=== PATIENT | female | born 1945 | race Caucasian/White ===

== ENCOUNTER 2016-11-08 00:16 | Observation (INO) | payer MEDICARE, BC ==
[2016-11-08] MEDS ORDERED: NS 0.9% 1000 ML* 1,000 ML IV ONE ×3 (00:32→03:33)
--- NOTE | 2016-11-08 00:54 | ED ---
HPI Cardiac - HPI Summary HPI Summary: The patient is a 71 year old female brought in by EMS with reported fever and elevated glucose. Patient admits to cough. Denies known fever, diaphoresis, sore throat, chest pain, shortness of breath, abdominal pain, vomiting, dysuria , change in voiding, arthralgia, myalgia, rash. History of DM on insulin, HTN, HLP, CHF, kidney disease. SH: Lives with independently at home. - History of Current Complaint Stated Complaint: FEVER//AMS Time Seen by Provider: 11/08/16 00:23 - Additional Pertinent History Primary Care Physician: [id number] - Allergy/Home Medications Allergies/Adverse Reactions: Allergies Allergy/AdvReac Type Severity Reaction Status Date / Time Rosiglitazone [From Avandia] Allergy Unknown Verified 10/09/16 14:28 Reaction Details CI Pigment Blue 63 AdvReac Hallucinati Verified 10/09/16 14:28 [From Cymbalta] ons Duloxetine [From Cymbalta] AdvReac Hallucinati Verified 10/09/16 14:28 ons PMH/Surg Hx/FS Hx/Imm Hx Endocrine/Hematology History: Reports: Hx Diabetes, Hx Thyroid Disease Denies: Hx Systemic Lupus Erythematosus Cardiovascular History: Reports: Hx Congestive Heart Failure, Hx Hypercholesterolemia, Hx Hypertension, Other Cardiovascular Problems/Disorders Respiratory History: Reports: Other Respiratory Problems/Disorders - CHF 03/08/15 GI History: Reports: Hx Diverticulosis History: Reports: Other Problems/Disorders - "impaired kidneys" Denies: Hx Renal Disease Musculoskeletal History: Reports: Hx Fibromyalgia, Hx Orthopedic Injury - neck injury, Hx Scoliosis, Other Musculoskeletal History - upper body pain Denies: Hx Rheumatoid Arthritis Sensory History: Reports: Hx Contacts or Glasses Opthamlomology History: Reports: Hx Contacts or Glasses Psychiatric History: Reports: Hx Depression - Cancer History Hx Chemotherapy: No - Surgical History Surgery Procedure, Year, and Place: neck diskectomy with fusion 1997 and 2006, CHOLECYSTECTOMY - Social History Alcohol Use: None Substance Use Type: Reports: None Substance Use Comment - Amount & Last Used: nucynta Smoking Status (MU): Current Every Day Smoker Type: Cigarettes Amount Used/How Often: 6-7 cigarettes/day Have You Smoked in the Last Year: Yes Review of Systems Positive: Chills, Fatigue. Negative: Fever ENT: Negative Negative: Sore Throat, Nasal Discharge Cardiovascular: Negative Negative: Chest Pain Positive: Cough. Negative: Shortness Of Breath Gastrointestinal: Negative Negative: Abdominal Pain, Vomiting, Diarrhea Genitourinary: Negative Negative: dysuria, hematuria Musculoskeletal: Negative Negative: Arthralgia, Myalgia Skin: Negative Negative: Rash Positive: Weakness - generalized weakness All Other Systems Reviewed And Are Negative: Yes Physical Exam Triage Information Reviewed: Yes Vital Signs Reviewed: Yes Appearance: Positive: No Pain Distress, Well-Nourished, Ill-Appearing - mildly ill-appearing Skin: Positive: Warm - increased warmth, Skin Color Reflects Adequate Perfusion , Dry Head/Face: Positive: Normal Head/Face Inspection Eyes: Positive: Normal, EOMI, BOGDAN, Conjunctiva Clear ENT: Positive: Normal ENT inspection, Hearing grossly normal, Pharynx normal, TMs normal. Negative: Nasal congestion, Nasal drainage Neck: Positive: Supple, Nontender, No Lymphadenopathy Respiratory/Lung Sounds: Positive: Breath Sounds Present, Rhonchi - bilaterally. Negative: Decreased Breath Sounds, Wheezes Cardiovascular: Positive: Normal, RRR, Pulses are Symmetrical in both Upper and Lower Extremities, Murmur - grade II systolic, S1, S2. Negative: Rub Abdomen Description: Positive: No Organomegaly, Soft, Other: - mild tenderness RUQ. Negative: CVA Tenderness (R), CVA Tenderness (L), Distended, Guarding, McBurney's Point Tenderness, Peritoneal Signs Bowel Sounds: Positive: Present Musculoskeletal: Positive: Other - generalized weakness without unilateral abnormality Neurological: Positive: Normal - awake, alert, following commands, Facial Symmetry, Speech Normal Psychiatric: Positive: Normal AVPU Assessment: Alert Diagnostics - Laboratory Result Diagrams: 11/08/16 01:25 11/08/16 01:25 Lab Statement: Any lab studies that have been ordered have been reviewed, and results considered in the medical decision making process. Disposition - Course Assessment/Plan: Patient presents with fever and cough. Labs demonstrate elevated WBC and elevated lactic acid. Clinical impression of community acquired PNA. Covered with Rocephin, Zithromax, IVF. Initiated KCL IV x3 runs. Patient to be admitted to hospital for further management. - Diagnoses Provider Diagnoses: Community acquired bacterial pneumonia, Sepsis, Hypokalemia - Physician Notifications Discussed Care Of Patient With: Dr. Johnson accepted admission 0325. Instructed by Provider To: Admit As Inpatient Discharge - Discharge Plan Condition: Stable Disposition: ADMITTED TO [facility]
[2016-11-08] MEDS ORDERED: Acetaminophen TAB* 325 MG PO ONE (01:19)
[2016-11-08 01:46] LABS: Hematocrit 40 % (35-47); Hemoglobin 13.5 g/dl (12.0-16.0); Mean Corpuscular HGB Conc 34 g/dl (31-36); Mean Corpuscular Hemoglobin 29 pg (27-31); Mean Corpuscular Volume 85 fL (80-97); Mean Platelet Volume 8 um3 (7.4-10.4); Red Blood Count 4.71 10^6/ul (4.0-5.4); Red Cell Distribution Width 15 % (10.5-15); White Blood Count 14.3 10^3/ul (3.5-10.8)
[2016-11-08 01:56] LABS: BUN/Creatinine Ratio 8.5 (8-20); Calcium 10.2 mg/dL (8.6-10.3); EGFR African American 66.1 (>60); EGFR Non-African American 51.4 (>60); Globulin 4.4 g/dL (2-4); Potassium 2.9 mmol/L (3.5-5.0); Total Bilirubin 0.6 mg/dL (0.2-1.0); Total Protein 8.4 g/dL (6.4-8.9)
[2016-11-08] MEDS ORDERED: cefTRIAXone(*) 1 GM in NS 0.9% 50 ML* 50 ML IVPB ONE (02:52)
[2016-11-08] MEDS ORDERED: Azithromycin IV(*) 500 MG in NS 0.9% 250 ML* 250 ML IVPB ONE (02:52)
[2016-11-08] MEDS ORDERED: KCL 10 MEQ/50 ML ONE (02:59)
[2016-11-08] MEDS ORDERED: IVPREMIX ONE (02:59)
[2016-11-08] MEDS: KCL 10 MEQ/50 ML IVPREMIX* 10 MEQ/50 ML BAG IV SCH ×3 (03:12→05:22)
[2016-11-08] MEDS ORDERED: Acetaminophen TAB* 325 MG PO PRN (05:14)
[2016-11-08] MEDS ORDERED: Ondansetron INJ* 2 MG/ML VIAL IV PRN (05:14)
[2016-11-08] MEDS ORDERED: Dextrose 50% Syringe 50 ML* 25 GM/50 ML SYRINGE IV PUSH PRN (05:15)
[2016-11-08 06:52] LABS: Urine Bacteria Absent (Absent); Urine Bilirubin Negative (Negative); Urine Glucose 3+(>=500 mg/dL) (Negative); Urine Nitrite Negative (Negative)
[2016-11-08] MEDS: Heparin VIAL(*) 5000 UNITS/ML VIAL (FIVE THOUSAND) SUBCUT SCH ×3 (07:22→22:05)
[2016-11-08] MEDS: Insulin LISPRO* 1 UNITS UNIT SUBCUT SCH ×4 (07:32→22:05)
--- NOTE | 2016-11-08 07:50 | RAD ---
HISTORY: Cough, fever COMPARISONS: None VIEWS: 2: Frontal dual-energy and lateral views of the chest. FINDINGS: CARDIOMEDIASTINAL SILHOUETTE: The cardiomediastinal silhouette is normal. ARTHUR: The arthur are normal. PLEURA: The costophrenic angles are sharp. No pleural abnormalities are noted. LUNG PARENCHYMA: The lungs are clear. ABDOMEN: The upper abdomen is clear. There is no subphrenic gas. BONES AND SOFT TISSUES: The patient is status post anterior cervical fusion OTHER: None. IMPRESSION: NO ACTIVE CARDIOPULMONARY DISEASE.
[2016-11-08] MEDS: NS 0.9% 1000 ML* 1,000 ML IV SCH ×2 (10:54→19:59)
[2016-11-08] MEDS ORDERED: Pregabalin CAP(*) 100 MG ONE (22:48)
[2016-11-09] MEDS ORDERED: amLODIPine TAB* 5 MG PO ONE (03:15)
[2016-11-09] MEDS ORDERED: amLODIPine TAB* 5 MG ONE (03:17)
[2016-11-09] MEDS: Heparin VIAL(*) 5000 UNITS/ML VIAL (FIVE THOUSAND) SUBCUT SCH ×2 (06:13→14:01)
[2016-11-09 08:17] LABS: Hematocrit 40 % (35-47); Hemoglobin 13.4 g/dl (12.0-16.0); Mean Corpuscular HGB Conc 34 g/dl (31-36); Mean Corpuscular Hemoglobin 29 pg (27-31); Mean Corpuscular Volume 86 fL (80-97); Mean Platelet Volume 8 um3 (7.4-10.4); Red Blood Count 4.64 10^6/ul (4.0-5.4); Red Cell Distribution Width 14 % (10.5-15); White Blood Count 9.9 10^3/ul (3.5-10.8)
[2016-11-09 08:18] LABS: BUN/Creatinine Ratio 12.8 (8-20); Calcium 10.3 mg/dL (8.6-10.3); EGFR African American 75.9 (>60); Potassium 3.5 mmol/L (3.5-5.0)
[2016-11-09] MEDS: Insulin LISPRO* 1 UNITS UNIT SUBCUT SCH ×2 (08:37→12:13)
[2016-11-09] MEDS ORDERED: Pregabalin CAP(*) 50 MG PO SCH (09:00)
--- NOTE | 2016-11-09 11:42 | PN ---
Subjective Date of Service: 11/09/16 Interval History: Pt is feeling well. She feels better. No pain. No SOB. Objective Active Medications: Acetaminophen (Tylenol Tab*) 650 mg PO Q4H PRN PRN Reason: FEVER/PAIN Dextrose (D50w Syringe 50 Ml*) 12.5 gm IV PUSH .FOR FS < 60 - SS PRN PRN Reason: FS < 60 Heparin Sodium (Porcine) (Heparin Vial(*)) 5,000 units SUBCUT Q8HR [facility] Last Admin: 11/09/16 06:13 Dose: Not Given Insulin Human Lispro (Humalog*) 0 units SUBCUT ACHS [facility] PRN Reason: Protocol Last Admin: 11/09/16 08:37 Dose: 4 units Ondansetron HCl (Zofran Inj*) 4 mg IV Q4H PRN PRN Reason: NAUSEA Pregabalin (Lyrica Cap(*)) 150 mg PO QAM [facility] Last Admin: 11/09/16 08:31 Dose: 150 mg Pregabalin (Lyrica Cap(*)) 300 mg PO QPM [facility] Vital Signs 11/08/16 11/08/16 11/08/16 12:07 19:49 20:00 Temperature 97.8 F Pulse Rate 78 Respiratory 16 18 16 Rate Blood Pressure 177/78 (mmHg) O2 Sat by Pulse 94 94 Oximetry 11/08/16 11/08/16 11/09/16 22:50 23:36 00:50 Temperature 98.4 F Pulse Rate 75 Respiratory 16 16 16 Rate Blood Pressure 171/72 (mmHg) O2 Sat by Pulse 94 Oximetry 11/09/16 11/09/16 11/09/16 03:13 06:02 07:26 Temperature 98.2 F 97.7 F Pulse Rate 73 68 70 Respiratory 16 14 Rate Blood Pressure 184/75 176/64 159/67 (mmHg) O2 Sat by Pulse 94 94 95 Oximetry 11/09/16 11/09/16 07:28 08:31 Temperature Pulse Rate Respiratory 18 18 Rate Blood Pressure (mmHg) O2 Sat by Pulse 95 Oximetry Oxygen Devices in Use Now: None Appearance: Middle aged female sitting up in bed, NAD Eyes: No Scleral Icterus Ears/Nose/Mouth/Throat: Mucous Membranes Moist Respiratory: Symmetrical Chest Expansion and Respiratory Effort, Clear to Auscultation Cardiovascular: NL Sounds; No Murmurs; No JVD, RRR, No Edema Abdominal: NL Sounds; No Tenderness; No Distention Extremities: No Clubbing, Cyanosis Skin: No Rash or Ulcers, No Nodules or Sclerosis Neurological: Alert and Oriented x 3 Result Diagrams: 11/09/16 07:59 11/09/16 07:59 Assess/Plan/Problems-Billing Ms Zavala is a 71 yo F who has a 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 - Patient Problems (1) Fever Current Visit: Yes Status: Acute Code(s): R50.9 - FEVER, UNSPECIFIED SNOMED Code(s): 967538312 Comment: Likely secondary to viral process. No further fevers. She is feeling much better. She is ready for d/c home today. (2) Weakness Current Visit: Yes Status: Acute Code(s): R53.1 - WEAKNESS SNOMED Code(s) : 66344356 Comment: I suspect secondary to viral illness. Now improved. (3) Diabetes Current Visit: Yes Status: Acute Code(s): E11.9 - TYPE 2 DIABETES MELLITUS WITHOUT COMPLICATIONS SNOMED Code(s): 56798331 Comment: Sugars have been uncontrolled however she has been off her usual DM regimen. Resume lantus and monitor sugars. (4) Hypothyroidism Current Visit: Yes Status: Acute Code(s): E03.9 - HYPOTHYROIDISM, UNSPECIFIED SNOMED Code(s): 64504438 Comment: Continue current dose of synthroid. (5) Cirrhosis Current Visit: Yes Status: Acute Comment: Stable-she has been contacted by Dr. Izquierdo's office for follow up appt. She has mild thrombocytopenia that is likely secondary to her cirrhosis. Her cirrhosis is secondary to HOLMAN. (6) DVT prophylaxis Current Visit: Yes Status: Acute Code(s): UWO1184 - SNOMED Code(s): 850236019 Comment: SQ heparin (7) Full code status Current Visit: Yes Status: Acute Code(s): Z78.9 - OTHER SPECIFIED HEALTH STATUS SNOMED Code(s): 630535335
[2016-11-09] MEDS ORDERED: Baclofen TAB* 10 MG PO PRN (11:45)
--- NOTE | 2016-11-09 11:59 | HP ---
HISTORY AND PHYSICAL: DATE OF ADMISSION: 11/08/16 CHIEF COMPLAINT: "I passed out." HISTORY OF PRESENT ILLNESS: The patient is a 71-year-old woman who presented to [facility] with a chief complaint of fever at home and elevated glucose. The patient has been feeling weak and confused. She did not feel like she had a fever. Apparently, this all started yesterday. She had no nausea, vomiting. She has had no problems with her bowel movements. She has had no problems urinating. She has no abdominal pain. In the ED, the patient was found to have a slightly elevated white blood cell count. She did have a low- grade fever of 100 degrees. PAST MEDICAL HISTORY: She has a past medical history significant for diabetes mellitus, hypothyroidism, hypertension, depression, osteoporosis, hyperlipidemia , tobacco abuse, obesity, congestive heart failure, and chronic pain. PAST SURGICAL HISTORY: Significant for cholecystectomy. HOME MEDICATIONS: Include: 1. Effexor XR 37.5 mg daily. 2. Synthroid 100 mcg daily. 3. Imdur 30 mg daily. 4. Lantus insulin 45 units subcu b.i.d. 5. Aspart insulin 100 units subcu t.i.d. 6. Ferrous sulfate 325 mg every other day. 7. Nucynta 50 mg every 6 hours. 8. Furosemide 10 mg daily. 9. Amlodipine 2.5 mg daily. 10. Metolazone 2.5 mg daily. 11. Lyrica 300 mg in the evening. 12. Metformin 1000 mg at bedtime. 13. Lyrica 150 mg in the morning. 14. Baclofen 50 mg two times a day as needed. ALLERGIES: She has an allergy/adverse reaction to ROSIGLITAZONE, C1 BIG PIGMENT BLUE 63, and DULOXETINE. SOCIAL HISTORY: She has been smoking about 1 -2 packs for the last 50 years. No alcohol or recreational drug use. She is a retired . She is . She has 3 children. Her , Matthew Zavala is her healthcare proxy. REVIEW OF SYSTEMS: A 14-point review of systems is completed with the patient. All pertinent positives and negatives are in the history of present illness, otherwise it is negative. PHYSICAL EXAMINATION GENERAL: A pleasant woman sitting up in bed, in no acute distress. VITAL SIGNS: T-max 100 degrees, heart rate 85 beats per minute, respiratory rate 20 breaths per minute, pulse ox 94%, blood pressure 160/64. HEENT: Normocephalic and atraumatic. Pupils are equal, round and reactive to light. Moist mucous membranes. NECK: Supple. No JVD, bruits, palpable thyroid or lymphadenopathy. CHEST: Clear to auscultation and percussion bilaterally. CARDIOVASCULAR: S1, S2 appreciated. ABDOMEN: Positive bowel sounds in all 4 quadrants. Soft, nontender, and nondistended. EXTREMITIES: No cyanosis, clubbing, or edema. +2 peripheral pulses bilaterally. NEUROLOGIC: Alert and oriented x3. Moves all extremities. SKIN: No rashes or abnormalities. LABORATORY DATA: White count 14.3, hemoglobin 13.5, hematocrit 40, platelets 150. Her sodium is 135, potassium 2.9, chloride 98, CO2 26, BUN 9, creat 1.06, glucose 359. Urinalysis +3 glucose. Influenza is negative. Chest x-ray is negative. ASSESSMENT AND PLAN: 1. Altered mental status. Likely secondary to viral syndrome. She has a fever and elevated white count. I think we will just hydrate the patient and monitor. I expect her to turn around fairly quickly and feel much improved. We will also see if anything else that clears itself, but I do not think she has pneumonia or UTI at this time. 2. Diabetes mellitus. Continue Lantus, fingersticks, sliding scale insulin. 3. Hypertension. Blood pressure was somewhat high. Continue current regimen and adjust medications accordingly. 4. FEN. Consistent carb diet. 5. DVT prophylaxis. Heparin subcu. 6. The patient is a full code. TIME SPENT: Over 75 minutes were spent on this H and P; more than 40 minutes of which is spent direct [id number] contact with the patient in evaluation, physical exam, counseling, and coordination of care. CC: Dr. Jenn Tan * [id number]/CPS #: [id number] MTDStan
[2016-11-09] MEDS ORDERED: Insulin GLARGINE(*) 1 UNITS UNIT SUBCUT SCH (12:00)
[2016-11-09] MEDS ORDERED: Furosemide TAB* 20 MG PO SCH (12:00)
[2016-11-09] MEDS ORDERED: Levothyroxine TAB* 100 MCG TAB PO SCH (12:00)
[2016-11-09] MEDS ORDERED: Isosorbide Mononitrate ER TAB* 30 MG PO SCH (12:00)
[2016-11-09] MEDS ORDERED: Venlafaxine EXT RELEASE CAP* 37.5 MG PO SCH (12:00)
[2016-11-09 14:21] VITALS: BP 154/64
[2016-11-09] MEDS ORDERED: Pregabalin CAP(*) 300 MG PO SCH (18:00)
[2016-11-09] MEDS ORDERED: metFORMIN* 1,000 MG TAB PO SCH (21:00)
--- NOTE | 2016-11-10 01:11 | DS ---
DISCHARGE SUMMARY: DATE OF ADMISSION: 11/08/16 DATE OF DISCHARGE: 11/09/16 PRIMARY CARE PROVIDER: Dr. Jenn Tan. PRINCIPAL DIAGNOSIS: Viral illness. SECONDARY DIAGNOSES: 1. Type 2 diabetes. 2. Hypothyroidism. 3. Depression. 4. 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 5. Diabetic neuropathy. DISCHARGE MEDICATIONS: 1. Venlafaxine XR 37.5 mg p.o. daily. 2. Synthroid 100 mcg p.o. daily. 3. Imdur 30 mg p.o. daily. 4. Lantus 45 units subcutaneous b.i.d. 5. NovoLog 100 units subcutaneous t.i.d. with meals. 6. Ferrous sulfate 325 mg p.o. every other day. 7. Nucynta 15 mg p.o. q.6 hours p.r.n. pain. 8. Lasix 20 mg p.o. daily. 9. Amlodipine 2.5 mg p.o. daily. 10. Metolazone 2.5 mg p.o. daily p.r.n. fluid retention. 11. Lyrica 300 mg p.o. q.h.s. 12. Metformin 1000 mg p.o. q.h.s. 13. Lyrica 150 mg p.o. q.a.m. 14. Baclofen 10 mg p.o. t.i.d. p.r.n. spasm. HOSPITAL COURSE: Ms. Zavala is a 71-year-old female who presented to the emergency room on 11/08/16 with complaints of weakness and found to be febrile. The patient was admitted for evaluation of her fever. Of note, this was a low -grade fever of 100. The patient was felt to have likely a viral illness that led to her weakness. The patient was admitted and placed on IV fluids. With the administration of IV fluids, the patient relatively rapidly improved. Her family does note that she had been very slow to respond to questions previously and seemed very weak and she is much better today. The patient agrees feeling much better. At this point, her family is; however, concerned that her decline was over the last several months. They describe a weakness. 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 At this point, it is felt that the patient is stable for discharge home. FOLLOWUP CONCERNS: The patient is being discharged home today, 11/09/16. The patient is to follow up with Dr. Jenn Tan in the next 4 to 7 days. ACTIVITY: As tolerated. DIET: Diabetic, low fat. CONDITION ON DISCHARGE: Stable. TIME SPENT: Thirty five minutes were spent discharging this patient. CC: Dr. Jenn Tan* [id number]/CPS #: [id number] MTDD
[2016-11-10] MEDS ORDERED: amLODIPine TAB* 5 MG PO SCH (09:00)
== END 2016-11-09 14:45 | disposition home or self-care (01) ==
LOC: ED 00:16 → INTOOBSV 05:15 → MED 05:15
PROVIDERS: ADMIT Internal Medicine; ATTEND Hospitalist
DX: B34.9 Viral infection, unspecified (principal); R41.82 Altered mental status, unspecified; R53.1 Weakness; E11.40 Type 2 diabetes mellitus with diabetic neuropathy, unspecified; Z79.4 Long term (current) use of insulin; Z79.84 Long term (current) use of oral hypoglycemic drugs; D72.829 Elevated white blood cell count, unspecified; E03.9 Hypothyroidism, unspecified; F32.9 Major depressive disorder, single episode, unspecified; K74.69 Other cirrhosis of liver; K76.0 Fatty (change of) liver, not elsewhere classified; Z79.899 Other long term (current) drug therapy; Z88.8 Allergy status to other drugs, medicaments and biological substances; F17.210 Nicotine dependence, cigarettes, uncomplicated
CPT/HCPCS: 36415; 71020; 80048; 80053; 81003; 81015; 82140; 83605; 83880; 85025; 87040; 87502; 96361; 96365; 96366; 96367; 96372; 99285; 99406; A9270-GY; G0378; J0456; J0696; J1644; J3480

== ENCOUNTER 2017-02-03 16:08 | Observation (INO) | payer MEDICARE, BC ==
--- NOTE | 2017-02-03 20:07 | RAD ---
INDICATION: Right ankle injury. TECHNIQUE: 3 views of the right ankle were obtained. FINDINGS: The bones appear osteopenic and in normal alignment. There is mild diffuse soft tissue swelling present. No fracture is seen. IMPRESSION: SOFT TISSUE SWELLING, NO FRACTURE IS SEEN.
--- NOTE | 2017-02-03 20:08 | RAD ---
INDICATION: Right foot injury. TECHNIQUE: 3 views of the right foot were obtained. FINDINGS: Soft tissue swelling is noted over the dorsal aspect of the midfoot. The bones are osteopenic and in normal alignment. No fracture is seen. Joint spaces appear maintained. IMPRESSION: NO EVIDENCE FOR FRACTURE, IF THE PATIENT'S SYMPTOMS PERSIST, RECOMMEND FOLLOW-UP IMAGING.
--- NOTE | 2017-02-03 20:50 | RAD ---
INDICATION: Altered mental status. COMPARISON: Comparison is made with a prior CT of the brain from April 18, 2014. TECHNIQUE: Contiguous axial sections of the brain were obtained from the skull base to the vertex without contrast. FINDINGS: The ventricles, cisterns and sulci are enlarged consistent with age-related atrophy. There are small areas of decreased density in the subcortical and periventricular white matter suggestive of mild chronic small vessel ischemic changes. There is no evidence for hemorrhage. No significant focal osseous abnormality is seen. The visualized portion of the paranasal sinuses and mastoid air cells appear clear. IMPRESSION: NO EVIDENCE FOR ACUTE INTRACRANIAL ABNORMALITY.
[2017-02-03 21:16] LABS: Hematocrit 33 % (35-47); Hemoglobin 11.2 g/dl (12.0-16.0); Mean Corpuscular HGB Conc 34 g/dl (31-36); Mean Corpuscular Hemoglobin 29 pg (27-31); Mean Corpuscular Volume 87 fL (80-97); Mean Platelet Volume 8 um3 (7.4-10.4); Red Cell Distribution Width 15 % (10.5-15); White Blood Count 7.7 10^3/ul (3.5-10.8)
[2017-02-03 21:43] LABS: Albumin 3.6 g/dL (3.2-5.2); BUN/Creatinine Ratio 16.5 (8-20); Calcium 9.7 mg/dL (8.6-10.3); EGFR African American 68.3 (>60); EGFR Non-African American 53.1 (>60); Total Bilirubin 0.6 mg/dL (0.2-1.0); Total Protein 7.6 g/dL (6.4-8.9)
[2017-02-03 21:45] LABS: Potassium 2.3 mmol/L (3.5-5.0)
[2017-02-03 22:06] LABS: Magnesium 1.7 mg/dL (1.9-2.7)
[2017-02-03] MEDS: KCL 20 MEQ/100 ML IVPREMIX* 20 MEQ/100 ML BAG IV SCH (22:07)
[2017-02-03] MEDS ORDERED: Magnesium Sulfate 2 GM IV* 2 GM/50 ML BAG IVPB ONE (22:37)
--- NOTE | 2017-02-03 23:04 | ED ---
I, Oh,Jeanine, scribed for Delfina Stauffer MD on 02/03/17 at 2013 . Lower Extremity - HPI Summary HPI Summary: Somewhat limited HPI due to pt being poor historian. This 71 y/o female presents to ED after a fall this afternoon. Pt is not sure "what made me fall". She fell on her knees, but did not hit her head or had syncope. decided to bring pt in today when he became concerned about RLE ankle and knee pain. Pt herself is vague about her chief complaint at time of initial evaluation. Positive chronic tremor. PMHx includes DM, HTN, HLD, cirrhosis, and fibromyalgia. Primary care involves Dr. Tan. Pt is chronic smoker. - History of Current Complaint Chief Complaint: EDExtremityLower Stated Complaint: FALL/RT FOOT INJURY Time Seen by Provider: 02/03/17 19:34 Hx Obtained From: Patient, Medical Records Mechanism Of Injury: Fall From A Standing Position Pain Intensity: 8 Pain Scale Used: 0-10 Numeric Location: Is Discrete @ - RLE knee and ankle Character Of Pain: Dull Associated Signs And Symptoms: Positive: Knee Pain - right, Other - right ankle pain Aggravating Factor(s): Standing, Ambulation Alleviating Factor(s): Rest - Allergies/Home Medications Allergies/Adverse Reactions: Allergies Allergy/AdvReac Type Severity Reaction Status Date / Time Rosiglitazone [From Avandia] Allergy Unknown Verified 10/09/16 14:28 Reaction Details CI Pigment Blue 63 AdvReac Hallucinati Verified 10/09/16 14:28 [From Cymbalta] ons Duloxetine [From Cymbalta] AdvReac Hallucinati Verified 10/09/16 14:28 ons PMH/Surg Hx/FS Hx/Imm Hx Endocrine/Hematology History: Reports: Hx Diabetes, Hx Thyroid Disease - hypothyroid Denies: Hx Systemic Lupus Erythematosus Cardiovascular History: Reports: Hx Congestive Heart Failure, Hx Hypercholesterolemia, Hx Hypertension, Other Cardiovascular Problems/Disorders Respiratory History: Reports: Other Respiratory Problems/Disorders - CHF 03/08/15 GI History: Reports: Hx Diverticulosis, Other GI Disorders History: Reports: Other Problems/Disorders - "impaired kidneys" Denies: Hx Renal Disease Musculoskeletal History: Reports: Hx Fibromyalgia, Hx Orthopedic Injury - neck injury, Hx Scoliosis, Other Musculoskeletal History - upper body pain Denies: Hx Rheumatoid Arthritis Sensory History: Reports: Hx Contacts or Glasses Opthamlomology History: Reports: Hx Contacts or Glasses Psychiatric History: Reports: Hx Depression - Cancer History Hx Chemotherapy: No - Surgical History Surgery Procedure, Year, and Place: neck diskectomy with fusion 1997 and 2006, CHOLECYSTECTOMY Hx Anesthesia Reactions: No Infectious Disease History: No Infectious Disease History: Denies: Traveled Outside the [place] in Last 30 Days - Family History Known Family History: Positive: Cardiac Disease - Social History Alcohol Use: None Substance Use Type: Reports: None Substance Use Comment - Amount & Last Used: nucynta Hx Tobacco Use: Yes Smoking Status (MU): Former Smoker Type: Cigarettes Amount Used/How Often: 6-7 cigarettes/day Have You Smoked in the Last Year: Yes Review of Systems Negative: Fever Positive: Other - RLE ankle and knee pain All Other Systems Reviewed And Are Negative: Yes Physical Exam Vital Signs On Initial Exam: Initial Vitals Temp Pulse Resp BP Pulse Ox 98.3 F 81 17 147/53 94 02/03/17 16:09 02/03/17 16:09 02/03/17 16:09 02/03/17 16:09 02/03/17 16:09 Diagnostics - Vital Signs Vital Signs Temp Pulse Resp BP Pulse Ox 02/03/17 19:24 98.4 F 68 16 141/56 95 02/03/17 17:41 98.4 F 68 16 141/56 95 02/03/17 16:09 98.3 F 81 17 147/53 94 - Laboratory Lab Results: Lab Results 02/03/17 Range/Units 18:39 POC Glucose (mg/dL) 124 H (74-106) mg/dL Result Diagrams: 02/03/17 21:03 02/03/17 21:03 Lab Statement: Any lab studies that have been ordered have been reviewed, and results considered in the medical decision making process. - Radiology Right foot Xray Interpretation: No Acute Changes - NO EVIDENCE FOR FRACTURE, IF THE PATIENT 'S SYMPTOMS PERSIST, RECOMMEND FOLLOW-UP IMAGING. Radiology Interpretation Completed By: Radiologist right ankle Xray Interpretation: No Acute Changes - soft tissue swelling. Negative Fx. Radiology Interpretation Completed By: Radiologist - CT Brain CT Interpretation: No Acute Changes CT Interpretation Completed By: Radiologist - EKG 2013 Cardiac Rate: NL - 67 bpm EKG Rhythm: Sinus Rhythm EKG Interpretation: Prolonged QT interval, mild LVH, and nonspecific T wave change. Lower Extremity Course/Dx - Course Course Of Treatment: pt who is sleepy on exam and has a documented history of non alcoholic cirrhosis with frequent falls today falling onto her knees. he workup is significant for very low potassium and low magnesium. These are currently being repleted and pt's case has been discussed with Dr. Crawford - Diagnoses Provider Diagnoses: Hypokalemia - Physician Notifications Discussed Care of Patient With: Dr. Scott (Hospitalist) at 2245 PM Instructed by Provider To: Admit As Inpatient Discharge - Discharge Plan Condition: Stable Disposition: ADMITTED TO [facility] Referrals: Jenn Tan MD [Primary Care Provider] - The documentation as recorded by the Ketan kennedy Soohyun accurately reflects the service I personally performed and the decisions made by me, Delfina Stauffer MD.
--- NOTE | 2017-02-04 | HP ---
H&P (Free Text) History and Physical: PCP: Ion Tan MD Date/Time of Evaluation: 02/03/2017 [id number] CC: HPI: Mrs Zavala is a 71YO female HX DM2, hypothyroidism, CHF, & chronic cervicalgia. She is currently too lethargic to provide a history. She is able to be roused enough to give her name, but drifts quickly back to sleep before being able to give any other answers. Speech is clear. Per ED staff, she presented with her reporting gait unsteadyness and frequent falls without LOC or head injury. Per records it appears she was placed on Nucynta by Dr Downey for her chronic cervicalgia on 01/01/2017, but her spouse is no longer present and able to give onset of her gait issues and falls. Evaluation reveals derangement of electrolytes with K of 2.3 & Mg of 1.7. Vitals are stable, slightly hypertensive. Labs are otherwise reasonably normal. CT brain WO is negative. PMedHx DM2 hypothyroidism CHF HTN HLD chronic cervicalgia depression osteoporosis tobacco use disorder Ambulatory Orders Nursing to reconcile. metFORMIN* [Glucophage 500 MG TAB *] 1,000 mg PO BEDTIME 08/13/12 Furosemide TAB* [Lasix TAB*] 20 mg PO DAILY 09/19/15 Insulin Aspart PEN(NF) [Novolog Flexpen(NF)] 100 unit SUBCUT TID PC 09/19/15 Insulin GLARGINE(*) [Lantus(*)] 45 units SUBCUT BID 09/19/15 Isosorbide Mononitrate ER TAB* [Imdur ER TAB*] 30 mg PO DAILY 09/19/15 Metolazone 2.5 mg PO DAILY PRN 09/19/15 Baclofen TAB* [Lioresal TAB*] 10 mg PO TID PRN 10/24/15 Tapentadol(NF) [Nucynta(NF)] 50 mg PO Q6HR PRN 10/24/15 amLODIPine TAB* [Norvasc 5 mg TAB*] 2.5 mg PO DAILY 10/24/15 Pregabalin CAP(*) [Lyrica CAP(*)] 150 mg PO QAM 10/09/16 Ferrous Sulfate TAB* 325 mg PO EVERY OTHER DAY 11/08/16 Levothyroxine TAB* [Synthroid 100 MCG TAB*] 100 mcg PO DAILY 11/08/16 Pregabalin CAP(*) [Lyrica CAP(*)] 300 mg PO QPM 11/08/16 Venlafaxine HCl [Effexor XR-] 37.5 mg PO DAILY 11/08/16 Allergies Rosiglitazone [From Avandia] Allergy (Verified 02/03/17 23:26) Unknown Reaction Details CI Pigment Blue 63 [From Cymbalta] Adverse Reaction (Verified 02/03/17 23:26) Hallucinations Duloxetine [From Cymbalta] Adverse Reaction (Verified 02/03/17 23:26) Hallucinations PSurgHx cholecystectomy SocHx: current smoker w/ ~50PYHX, denies alcohol and recreational drugs; lives with her ; full code status FamHx: unobtainable ROS: as above, otherwise reviewed and all were negative Constitutional: NAD, normally developed, obese white female vitals: Vital Signs Temp 36.9 C 02/03/17 19:24 Pulse 65 02/03/17 23:00 Resp 14 02/03/17 23:00 BP 159/62 02/03/17 20:30 Pulse Ox 97 02/03/17 23:00 Intake & Output 02/03/17 02/03/17 02/04/17 11:59 23:59 11:59 Intake Total 50 Balance 50 Weight 77.111 kg Intake: IV Fluids 50 HEENM: atraumatic; sclera/conjunctiva: non-icteric/clear; hearing: clinically intact; oropharynx: clear, mucosa moist Neck: soft tissue: non-tender; thyroid: normal Pulmonary: clear to auscultation bilaterally, good aeration, no accessory muscle use CV: RR/RR, normal S1S2, no carotid bruit, no jugular venous distention, 2+ B DP/ PT, no edema Abdominal: soft, non-distended, non-tender, no rebound/guarding/rigidity, normoactive bowel sounds, no hepatosplenomegaly or masses, no costovertebral angle tenderness Musculoskeletal: general: grossly intact; gait: unable to assess 2nd lethargy Integumental: normal appearance and texture Psychiatric orientation: somnolent, oriented to person only affect: somnolent mood: acquiescent eye contact: poor content: minimal responses: slowed insight: poor to absent currently Testing: Lab Results 02/03/17 02/03/17 02/03/17 Range/Units 18:39 21:03 21:03 WBC 7.7 (3.5-10.8) 10^3/ul RBC 3.80 L (4.0-5.4) 10^6/ul Hgb 11.2 L (12.0-16.0) g/dl Hct 33 L (35-47) % MCV 87 (80-97) fL MCH 29 (27-31) pg MCHC 34 (31-36) g/dl RDW 15 (10.5-15) % Plt Count 129 L (150-450) 10^3/ul MPV 8 (7.4-10.4) um3 Neut % (Auto) 66.6 (38-83) % Lymph % (Auto) 22.8 L (25-47) % Swisher % (Auto) 7.8 (1-9) % Eos % (Auto) 2.4 (0-6) % Baso % (Auto) 0.4 (0-2) % Absolute Neuts (auto) 5.1 (1.5-7.7) 10^3/ul Absolute Lymphs (auto) 1.8 (1.0-4.8) 10^3/ul Absolute Monos (auto) 0.6 (0-0.8) 10^3/ul Absolute Eos (auto) 0.2 (0-0.6) 10^3/ul Absolute Basos (auto) 0 (0-0.2) 10^3/ul Absolute Nucleated RBC 0 10^3/ul Nucleated RBC % 0 INR (Anticoag Therapy) (0.89-1.11) Sodium 139 (133-145) mmol/L Potassium 2.3 L* (3.5-5.0) mmol/L Chloride 97 L (101-111) mmol/L Carbon Dioxide 36 H (22-32) mmol/L Anion Gap 6 (2-11) mmol/L BUN 17 (6-24) mg/dL Creatinine 1.03 H (0.51-0.95) mg/dL Est GFR ( Amer) 68.3 (>60) Est GFR (Non-Af Amer) 53.1 (>60) BUN/Creatinine Ratio 16.5 (8-20) Glucose 111 H (70-100) mg/dL POC Glucose (mg/dL) 124 H (74-106) mg/dL Lactic Acid (0.5-2.0) mmol/L Calcium 9.7 (8.6-10.3) mg/dL Magnesium 1.7 L (1.9-2.7) mg/dL Total Bilirubin 0.60 (0.2-1.0) mg/dL AST 32 (13-39) U/L ALT 21 (7-52) U/L Alkaline Phosphatase 65 (34-104) U/L Ammonia (16-53) mol/L Total Protein 7.6 (6.4-8.9) g/dL Albumin 3.6 (3.2-5.2) g/dL Globulin 4.0 (2-4) g/dL Albumin/Globulin Ratio 0.9 L (1-3) 02/03/17 02/03/17 02/03/17 Range/Units 21:03 21:03 21:05 WBC (3.5-10.8) 10^3/ul RBC (4.0-5.4) 10^6/ul Hgb (12.0-16.0) g/dl Hct (35-47) % MCV (80-97) fL MCH (27-31) pg MCHC (31-36) g/dl RDW (10.5-15) % Plt Count (150-450) 10^3/ul MPV (7.4-10.4) um3 Neut % (Auto) (38-83) % Lymph % (Auto) (25-47) % Swisher % (Auto) (1-9) % Eos % (Auto) (0-6) % Baso % (Auto) (0-2) % Absolute Neuts (auto) (1.5-7.7) 10^3/ul Absolute Lymphs (auto) (1.0-4.8) 10^3/ul Absolute Monos (auto) (0-0.8) 10^3/ul Absolute Eos (auto) (0-0.6) 10^3/ul Absolute Basos (auto) (0-0.2) 10^3/ul Absolute Nucleated RBC 10^3/ul Nucleated RBC % INR (Anticoag Therapy) 1.01 (0.89-1.11) Sodium (133-145) mmol/L Potassium (3.5-5.0) mmol/L Chloride (101-111) mmol/L Carbon Dioxide (22-32) mmol/L Anion Gap (2-11) mmol/L BUN (6-24) mg/dL Creatinine (0.51-0.95) mg/dL Est GFR ( Amer) (>60) Est GFR (Non-Af Amer) (>60) BUN/Creatinine Ratio (8-20) Glucose (70-100) mg/dL POC Glucose (mg/dL) (74-106) mg/dL Lactic Acid 1.3 (0.5-2.0) mmol/L Calcium (8.6-10.3) mg/dL Magnesium (1.9-2.7) mg/dL Total Bilirubin (0.2-1.0) mg/dL AST (13-39) U/L ALT (7-52) U/L Alkaline Phosphatase (34-104) U/L Ammonia 47 (16-53) mol/L Total Protein (6.4-8.9) g/dL Albumin (3.2-5.2) g/dL Globulin (2-4) g/dL Albumin/Globulin Ratio (1-3) ECG, personally reviewed: NSR rate 67, no ischemia, QTc 531 CT brain WO, personally reviewed: IMPRESSION: NO EVIDENCE FOR ACUTE INTRACRANIAL ABNORMALITY. XRY R ankle: IMPRESSION: SOFT TISSUE SWELLING, NO FRACTURE IS SEEN. XRY R foot: IMPRESSION: NO EVIDENCE FOR FRACTURE, IF THE PATIENT'S SYMPTOMS PERSIST, RECOMMEND FOLLOW-UP IMAGING. Impression: 71F presenting with lethargy and new gait abnormality associated with falls; RLE pain w/ negative radiologic work up DIAGNOSIS & PLAN Primary somnolence, gait abnormality, falls : suspect 2nd initiation of Nucynta : hold all sedating medications : neurochecks : PT evaluation in AM : supportive care electrolyte abnormality : replace & recheck : telemetry Secondary DM2 : NPO until more awake : basal & correctional insulin : check A1c hypothyroidism : continue levothyroxine once reconciled : check TSH CHF : cautious use of fluids HTN : review meds once reconciled HLD : review meds once reconciled : heart healthy diet once able to take PO chronic cervicalgia : pain control : hold sedating medications as above depression : review meds once reconciled tobacco use disorder : >50PYHX : albuterol nebs : mometasone/formoterol : tiotropium : incentive spirometry : smoking cessation Admission Rational: CDU observation for AMS, telemetry for hypoKalemia DVTp: heparin SQ & SCDs Code Status: full HCP:
[2017-02-04] MEDS: KCL 20 MEQ/100 ML IVPREMIX* 20 MEQ/100 ML BAG IV SCH ×3 (00:08→12:37)
[2017-02-04] MEDS ORDERED: Nicotine Inhaler* 10 MG AMP INH PRN (00:33)
[2017-02-04] MEDS ORDERED: Albuterol 2.5 MG/3 ML NEB.SOL* (0.083%) INH PRN (00:33)
[2017-02-04] MEDS ORDERED: Ondansetron INJ* 2 MG/ML VIAL IV PRN (00:33)
[2017-02-04] MEDS ORDERED: Acetaminophen TAB* 325 MG PO PRN (00:33)
[2017-02-04 01:10] LABS: TSH (Thyroid Stimulating Horm) 0.31 mcIU/mL (0.34-5.60)
[2017-02-04] MEDS: NS 0.9% 1000 ML* 1,000 ML IV SCH ×2 (02:29→15:36)
[2017-02-04] MEDS: Insulin LISPRO* 1 UNITS UNIT SUBCUT SCH ×6 (02:46→22:12)
[2017-02-04] MEDS: Omeprazole CAP* 20 MG PO SCH ×2 (05:59→09:34)
[2017-02-04 07:18] LABS: BUN/Creatinine Ratio 14.9 (8-20); Calcium 8.9 mg/dL (8.6-10.3); EGFR African American 75.9 (>60); Magnesium 2.2 mg/dL (1.9-2.7)
[2017-02-04 07:23] LABS: Potassium 2.5 mmol/L (3.5-5.0)
[2017-02-04] MEDS: Docusate CAP* 100 MG PO SCH ×2 (08:05→09:33)
[2017-02-04] MEDS ORDERED: Spiriva Inhaler DEVICE* 1 EACH DEVICE INH ONE (09:00)
[2017-02-04] MEDS: Potassium Chlor TAB* 20 MEQ TAB.ER PO SCH ×2 (09:34→12:37)
[2017-02-04] MEDS: Mometasone/Formoter 200/5 MDI INH SCH ×2 (09:53→19:58)
[2017-02-04] MEDS: Tiotropium CAP.INH* CAP.INH/18 MCG INH SCH (09:54)
--- NOTE | 2017-02-04 18:16 | PN ---
Subjective Date of Service: 02/04/17 Interval History: Patient seen and examined at bedside. Pt states that she is having right foot pain. Denies fever, chills, shortness of breath, chest discomfort, N/V/D. Pt states that she has had 3 falls in the past 3 weeks. Tele: Sinus rhythm, rate 70-80's. Family History: Unchanged from Admission Social History: Unchanged from Admission Past Medical History: Unchanged from Admission Objective Active Medications: Acetaminophen (Tylenol Tab*) 650 mg PO Q6H PRN Reason: FEVER/PAIN Albuterol (Ventolin 2.5 Mg/3 Ml Neb.Aydee*) 2.5 mg INH Q2H PRN Reason: SOB/ WHEEZING Docusate Sodium (Colace Cap*) 200 mg PO BID [facility] Heparin Sodium (Porcine) (Heparin Vial(*)) 5,000 units SUBCUT Q8HR [facility] Sodium Chloride (Ns 0.9% 1000 Ml*) 1,000 mls @ 75 mls/hr IV PER RATE [facility] Insulin Glargine (Lantus(*)) 15 units SUBCUT 2100 [facility] Stop: 02/05/17 20:00 Insulin Human Lispro (Humalog*) 0 units SUBCUT AC [facility] Reason: Protocol Mometasone Furoate/Formoterol Fumar (Dulera 200/5 Mdi*) 2 puff INH BID [facility] Nicotine (Nicotine Inhaler*) 10 mg INH Q2H PRN Reason: CRAVING Omeprazole (Prilosec Cap*) 20 mg PO DAILY@0600 [facility] Ondansetron HCl (Zofran Inj*) 4 mg IV Q6H PRN Reason: NAUSEA Tiotropium [place] (Spiriva Cap.Inh*) 1 cap INH DAILY [facility] Vital Signs 02/04/17 02/04/17 02/04/17 01:00 01:01 02:00 Temperature 98.3 F Pulse Rate 63 64 66 Respiratory 12 12 20 Rate Blood Pressure 180/56 152/62 148/65 (mmHg) O2 Sat by Pulse 98 97 99 Oximetry 02/04/17 02/04/17 02/04/17 07:45 09:54 12:37 Temperature 97.3 F 98.0 F Pulse Rate 65 68 66 Respiratory 16 16 16 Rate Blood Pressure 129/52 142/63 (mmHg) O2 Sat by Pulse 98 98 96 Oximetry 02/04/17 15:46 Temperature 98.1 F Pulse Rate 71 Respiratory 16 Rate Blood Pressure 141/66 (mmHg) O2 Sat by Pulse 97 Oximetry Oxygen Devices in Use Now: None Appearance: NAD, sitting up in a chair Eyes: No Scleral Icterus, PERRLA Ears/Nose/Mouth/Throat: Mucous Membranes Moist Respiratory: Symmetrical Chest Expansion and Respiratory Effort, Clear to Auscultation Cardiovascular: NL Sounds; No Murmurs; No JVD, RRR Abdominal: NL Sounds; No Tenderness; No Distention Extremities: - - Edema to top of right foot Skin: - - Ecchymosis to top of right foot Neurological: Alert and Oriented x 3, NL Muscle Strength and Tone Lines/Tubes/Other Access: Clean, Dry and Intact Peripheral IV - site benign Nutrition: Taking PO's Result Diagrams: 02/03/17 21:03 02/04/17 06:44 Additional Lab and Data: Lab Results 02/03/17 Range/Units 18:39 POC Glucose (mg/dL) 124 H (74-106) mg/dL Assess/Plan/Problems-Billing Assessment: Ms. Zavala is a 71 yo female with PMH significant for DM, thypothyroidism, CHF, chronic pain, HTN, HLD, cervicalgia who presented to the emergency room with complaints of lethargy and new gait abnormality associated with falls. - Patient Problems (1) Somnolence Comment: - Resolved - Suspect related to Nucynta - Continue to hold sedating medications (2) Electrolyte abnormality Code(s): E87.8 - OTH DISORDERS OF ELECTROLYTE AND FLUID BALANCE, NEC SNOMED Code(s): 418667352 Comment: - Hypokalcemia - replacement and recheck in the AM - Hypomagnesium - resolved (3) Gait disorder Code(s): R26.9 - UNSPECIFIED ABNORMALITIES OF GAIT AND MOBILITY SNOMED Code(s) : 43542173 Comment: - Continue PT (4) Right foot pain Code(s): M79.671 - PAIN IN RIGHT FOOT SNOMED Code(s): 01062088 Comment: - Pt continues to have tenderness to palpation on the top of the foot - No fracture seen on xray (5) Diabetes Code(s): E11.9 - TYPE 2 DIABETES MELLITUS WITHOUT COMPLICATIONS SNOMED Code(s) : 68284767 Comment: - Glucose 140-240s - HgA1C - 8.5 - Continue Lantus and Lispro SS (6) Hypothyroidism Code(s): E03.9 - HYPOTHYROIDISM, UNSPECIFIED SNOMED Code(s): 54250346 Comment: - TSH - 0.31 - Continue levothyroxine but decrease to 100 mcg daily (7) CHF (congestive heart failure) Code(s): I50.9 - HEART FAILURE, UNSPECIFIED SNOMED Code(s): 07847989 Comment: - No signs of exacerbation at this time - Cautious use of fluids - Strict I+O's and daily weights - Continue Lasix (8) HTN (hypertension) Code(s): I10 - ESSENTIAL (PRIMARY) HYPERTENSION SNOMED Code(s): 79735652 Comment: - SBP 120-140's - Continue Amlodipine (9) HLD (hyperlipidemia) Code(s): E78.5 - HYPERLIPIDEMIA, UNSPECIFIED SNOMED Code(s): 78756506 (10) Cervicalgia Code(s): M54.2 - CERVICALGIA SNOMED Code(s): 71383954 Comment: - Hold Nucynta, baclofen and Lyrica (11) Depression Code(s): F32.9 - MAJOR DEPRESSIVE DISORDER, SINGLE EPISODE, UNSPECIFIED SNOMED Code(s): 12860889 Comment: - Continue Effexor (12) Smoker Code(s): F17.200 - NICOTINE DEPENDENCE, UNSPECIFIED, UNCOMPLICATED SNOMED Code (s): 59387560 Comment: - Pt advised to quit smoking - Continue Spiriva, mometasone/formoterol - Incentive Spirometry (13) DVT prophylaxis Code(s): PNJ6516 - SNOMED Code(s): 332382429 Comment: - SQ heparin (14) Full code status Code(s): Z78.9 - OTHER SPECIFIED HEALTH STATUS SNOMED Code(s): 912321271 Status and Disposition: OBV. Discharge to home when medically stable, possibly in the morning.
[2017-02-04 18:38] LABS: Urine Bilirubin Negative (Negative); Urine Glucose 2+(150 mg/dL) (Negative); Urine Nitrite Negative (Negative)
[2017-02-04] MEDS ORDERED: Insulin GLARGINE(*) 1 UNITS UNIT SUBCUT SCH (21:00)
[2017-02-05] MEDS: Omeprazole CAP* 20 MG PO SCH (05:03)
[2017-02-05] MEDS: Heparin VIAL(*) 5000 UNITS/ML VIAL (FIVE THOUSAND) SUBCUT SCH ×2 (05:04→13:11)
[2017-02-05] MEDS ORDERED: Levothyroxine TAB* 100 MCG TAB PO SCH (06:00)
[2017-02-05 06:49] LABS: BUN/Creatinine Ratio 12.8 (8-20); EGFR African American 84.1 (>60); EGFR Non-African American 65.4 (>60); Magnesium 1.7 mg/dL (1.9-2.7)
[2017-02-05] MEDS ORDERED: Magnesium Sulfate 2 GM IV* 2 GM/50 ML BAG IVPB ONE (08:27)
[2017-02-05] MEDS ORDERED: Potassium Chlor TAB* 20 MEQ TAB.ER PO ONE (08:28)
[2017-02-05] MEDS ORDERED: KCL 20 MEQ/100 ML IVPREMIX* 20 MEQ/100 ML BAG IV ONE (08:28)
[2017-02-05] MEDS ORDERED: Furosemide TAB* 20 MG PO SCH (09:00)
[2017-02-05] MEDS ORDERED: Venlafaxine EXT RELEASE CAP* 37.5 MG PO SCH (09:00)
[2017-02-05] MEDS ORDERED: amLODIPine TAB* 5 MG PO SCH (09:00)
[2017-02-05] MEDS ORDERED: Isosorbide Mononitrate ER TAB* 30 MG PO SCH (09:00)
[2017-02-05] MEDS: Mometasone/Formoter 200/5 MDI INH SCH (09:04)
[2017-02-05] MEDS: Tiotropium CAP.INH* CAP.INH/18 MCG INH SCH (09:04)
[2017-02-05] MEDS: Docusate CAP* 100 MG PO SCH (09:45)
[2017-02-05] MEDS: KCL 20 MEQ/100 ML IVPREMIX* 20 MEQ/100 ML BAG IV SCH ×2 (09:47→13:10)
[2017-02-05] MEDS: Insulin LISPRO* 1 UNITS UNIT SUBCUT SCH ×2 (09:49→13:11)
--- NOTE | 2017-02-05 12:10 | PN ---
Subjective Date of Service: 02/05/17 Interval History: Patient seen and examined at bedside. Pt states that she is feeling well today. Denies fever, chills, shortness of breath, chest discomfort, N/V/D. Pt continues to have right foot pain, but this is improving and she is able to bear weight on the foot. Tele: Sinus rhythm, rate 70-80's. Family History: Unchanged from Admission Social History: Unchanged from Admission Past Medical History: Unchanged from Admission Objective Active Medications: Acetaminophen (Tylenol Tab*) 650 mg PO Q6H PRN Reason: FEVER/PAIN Albuterol (Ventolin 2.5 Mg/3 Ml Neb.Aydee*) 2.5 mg INH Q2H PRN Reason: SOB/ WHEEZING Amlodipine Besylate (Norvasc Tab*) 2.5 mg PO DAILY [facility] Docusate Sodium (Colace Cap*) 200 mg PO BID [facility] Furosemide (Lasix Tab*) 20 mg PO DAILY [facility] Heparin Sodium (Porcine) (Heparin Vial(*)) 5,000 units SUBCUT Q8HR [facility] Potassium Chloride (Potassium Chloride 20 Meq/100 Ml Ivpremix*) 20 meq in 100 mls @ 50 mls/hr IV Q2H [facility] Stop: 02/05/17 12:59 Insulin Glargine (Lantus(*)) 15 units SUBCUT 2100 [facility] Stop: 02/05/17 20:00 Insulin Human Lispro (Humalog*) 0 - 12 units SUBCUT ACHS [facility] Reason: Protocol Isosorbide Mononitrate (Imdur Er Tab*) 30 mg PO DAILY [facility] Levothyroxine Sodium (Synthroid Tab*) 100 mcg PO DAILY@0600 [facility] Mometasone Furoate/Formoterol Fumar (Dulera 200/5 Mdi*) 2 puff INH BID [facility] Nicotine (Nicotine Inhaler*) 10 mg INH Q2H PRN Reason: CRAVING Omeprazole (Prilosec Cap*) 20 mg PO DAILY@0600 [facility] Ondansetron HCl (Zofran Inj*) 4 mg IV Q6H PRN Reason: NAUSEA Tiotropium [place] (Spiriva Cap.Inh*) 1 cap INH DAILY [facility] Venlafaxine HCl (Effexor Xr Cap*) 37.5 mg PO DAILY [facility] Vital Signs 02/04/17 02/04/17 02/04/17 12:37 15:46 19:27 Temperature 98.0 F 98.1 F 98.4 F Pulse Rate 66 71 72 Respiratory 16 16 18 Rate Blood Pressure 142/63 141/66 159/63 (mmHg) O2 Sat by Pulse 96 97 95 Oximetry 02/04/17 02/04/17 02/04/17 19:59 20:00 23:53 Temperature 98.6 F Pulse Rate 68 68 77 Respiratory 14 14 16 Rate Blood Pressure 162/63 (mmHg) O2 Sat by Pulse 98 98 96 Oximetry 02/05/17 02/05/17 02/05/17 00:11 03:48 07:21 Temperature 98.2 F 97.9 F Pulse Rate 74 74 Respiratory 16 16 Rate Blood Pressure 154/67 154/61 155/62 (mmHg) O2 Sat by Pulse 96 95 Oximetry 02/05/17 02/05/17 07:49 09:06 Temperature Pulse Rate 68 Respiratory 18 18 Rate Blood Pressure (mmHg) O2 Sat by Pulse 98 Oximetry Oxygen Devices in Use Now: None Appearance: NAD, laying in bed Eyes: PERRLA Respiratory: Symmetrical Chest Expansion and Respiratory Effort, Clear to Auscultation Cardiovascular: NL Sounds; No Murmurs; No JVD, RRR Abdominal: NL Sounds; No Tenderness; No Distention Extremities: No Edema Skin: No Rash or Ulcers, - - Eccymosis to the top of the right foot Neurological: Alert and Oriented x 3, NL Muscle Strength and Tone Lines/Tubes/Other Access: Clean, Dry and Intact Peripheral IV - site benign Nutrition: Taking PO's Result Diagrams: 02/03/17 21:03 02/05/17 16:12 Additional Lab and Data: Lab Results 02/03/17 Range/Units 18:39 POC Glucose (mg/dL) 124 H (74-106) mg/dL Assess/Plan/Problems-Billing Assessment: Ms. Zavala is a 71 yo female with PMH significant for DM, thypothyroidism, CHF, chronic pain, HTN, HLD, cervicalgia who presented to the emergency room with complaints of lethargy and new gait abnormality associated with falls. - Patient Problems (1) Somnolence Comment: - Resolved - Suspect related to Nucynta - Continue to hold sedating medications (2) Electrolyte abnormality Code(s): E87.8 - OTH DISORDERS OF ELECTROLYTE AND FLUID BALANCE, NEC SNOMED Code(s): 648210129 Comment: - Hypokalcemia - replacement and recheck later today - Hypomagnesium - replacement and recheck later today (3) Gait disorder Code(s): R26.9 - UNSPECIFIED ABNORMALITIES OF GAIT AND MOBILITY SNOMED Code(s) : 40647063 Comment: - Continue PT (4) Right foot pain Code(s): M79.671 - PAIN IN RIGHT FOOT SNOMED Code(s): 09077877 Comment: - Pt continues to have tenderness to palpation on the top of the foot, improving - No fracture seen on xray (5) Diabetes Code(s): E11.9 - TYPE 2 DIABETES MELLITUS WITHOUT COMPLICATIONS SNOMED Code(s) : 35261332 Comment: - Glucose 200-290s - HgA1C - 8.5 - Continue Lantus and Lispro SS (6) Hypothyroidism Code(s): E03.9 - HYPOTHYROIDISM, UNSPECIFIED SNOMED Code(s): 63619227 Comment: - TSH - 0.31 - Continue levothyroxine but decrease to 100 mcg daily (7) CHF (congestive heart failure) Code(s): I50.9 - HEART FAILURE, UNSPECIFIED SNOMED Code(s): 01404438 Comment: - No signs of exacerbation at this time - Cautious use of fluids - Strict I+O's and daily weights - Continue Lasix (8) HTN (hypertension) Code(s): I10 - ESSENTIAL (PRIMARY) HYPERTENSION SNOMED Code(s): 35960230 Comment: - SBP 150-160's - Continue Amlodipine (9) HLD (hyperlipidemia) Code(s): E78.5 - HYPERLIPIDEMIA, UNSPECIFIED SNOMED Code(s): 64924210 (10) Cervicalgia Code(s): M54.2 - CERVICALGIA SNOMED Code(s): 19533353 Comment: - Hold Nucynta, baclofen and Lyrica (11) Depression Code(s): F32.9 - MAJOR DEPRESSIVE DISORDER, SINGLE EPISODE, UNSPECIFIED SNOMED Code(s): 06490608 Comment: - Continue Effexor (12) Smoker Code(s): F17.200 - NICOTINE DEPENDENCE, UNSPECIFIED, UNCOMPLICATED SNOMED Code (s): 22847811 Comment: - Pt advised to quit smoking - Continue Spiriva, mometasone/formoterol - Incentive Spirometry (13) DVT prophylaxis Code(s): LEB3069 - SNOMED Code(s): 061553868 Comment: - SQ heparin (14) Full code status Code(s): Z78.9 - OTHER SPECIFIED HEALTH STATUS SNOMED Code(s): 203508919 Status and Disposition: OBV. Discharge to home when medically stable, possibly later today or in the morning.
[2017-02-05 16:46] VITALS: BP 152/69
[2017-02-05 16:49] LABS: BUN/Creatinine Ratio 12.8 (8-20); Calcium 9.1 mg/dL (8.6-10.3); EGFR African American 75.9 (>60); Magnesium 1.9 mg/dL (1.9-2.7); Potassium 3.8 mmol/L (3.5-5.0)
--- NOTE | 2017-02-06 03:54 | DS ---
DISCHARGE SUMMARY: DATE OF ADMISSION: 02/04/17 DATE OF DISCHARGE: 02/05/17 ATTENDING PHYSICIAN: Genaro Johnson MD* (dictated by Vidhi Villaseñor NP) PRIMARY CARE PROVIDER: Dr. Jenn Tan. STUDIES WHILE IN THE HOSPITAL: 1. Right ankle x-ray from 02/03/17: Radiologist's impression: Soft tissue swelling. No fracture is seen. 2. Right foot x-ray from 02/03/17: Radiologist's impression: No evidence for fracture; if the patient's symptoms persist, recommend followup imaging. 3. Brain CT from 02/03/17: Radiologist's impression: No evidence for acute intracranial abnormalities. DISCHARGE MEDICATIONS: New home medications: Potassium chloride 20 mEq oral daily. Changed home medications: Levothyroxine 100 mcg oral daily. Continued home medications: 1. Furosemide 20 mg oral daily. 2. Isosorbide mononitrate ER 30 mg oral daily. 3. Lantus insulin 45 units subcutaneous twice daily. 4. Aspart insulin 3 units for each serving of carbohydrates and 2 units for each 50, over 150 up to 60 daily. 5. Norvasc 2.5 mg oral daily. 6. Effexor 37.5 mg daily. Medications to discuss with primary care provider: Baclofen, Lyrica, and Nucynta. HISTORY OF PRESENT ILLNESS/HOSPITAL COURSE: Ms. Zavala is a 71-year-old female with a past medical history significant for diabetes mellitus, hypothyroidism, congestive heart failure, and chronic cervicalgia who presented to the emergency room with complaints of an unsteady gait and frequent falls without loss of consciousness or head injury. The patient presented to the emergency room for further evaluation of her symptoms. While in the emergency room, the patient had labs that were significant for electrolyte abnormalities with a potassium of 2.3 and a magnesium of 1.7. The patient had a brain CT that was negative. Otherwise, the patient's labs were normal. She had right lower extremity imaging that was negative. Hospitalists were asked to evaluate the patient for admission. While in the hospital, the patient's somnolence and gait abnormalities were suspected to be secondary to her Nucynta, Lyrica, and baclofen. These were held during the patient's admission. Although she did report some pain, her pain was tolerable. The patient continued to have hypomagnesium and hypocalcemia. She received electrolyte replacements. The patient had a TSH with a low TSH of 0.31 and her levothyroxine was decreased to 100 mcg. The patient was found not to be in acute CHF exacerbation. Her hypertension was slightly elevated with systolic blood pressures in the 130s to 150s. The patient was continued on her Effexor for depression. After electrolyte abnormalities resolved, it was felt that she was ready for discharge to home. It is to note she was also seen in consultation with Physical Therapy who felt that she had met her treatment goals. The patient was able to place more weight on her right foot without much discomfort and was walking with a walker. The patient was anxious to be discharged to home today. Ms. Zavala is stable for discharge to home today. Vital signs are as follows: Temperature 98.1, heart rate 76, respiratory rate 20, O2 saturation 97% on room air, and blood pressure 152/69. DISCHARGE PLAN: Ms. Zavala will be discharged to home today. Activity as tolerated. She has been encouraged to ambulate with a walker. As far as the patient's electrolyte abnormalities, she has been started on potassium 20 mEq daily. She has been asked to get blood work on Friday. The patient should see Dr. Tan in followup. She has an appointment for February 11, at 3:30 p.m. the patient has been encouraged to monitor her weights daily and call Dr. Tan's office if she gains more than 3 pounds in 24 hours. As far as the patient's hypothyroidism, her TSH was slightly low, so her levothyroxine was decreased to 100 mcg daily. As far as the patient's sedating pain medications, she has been asked to discuss resuming her Lyrica, baclofen, and Nucynta with her primary care provider. She has been encouraged to take Tylenol as needed for her pain. As far as the patient's right foot discomfort, she is able to bear more weight. She does have ecchymosis, but the swelling has improved. If she continues to have persistent pain, I recommend getting further imaging on the foot. At this time, I do not feel that there is a fracture. For the patient's diabetes, she has been resumed on her Lantus and correctional insulin. The patient has been asked to return to the emergency room for chest pain or shortness of breath. This is a summarized report of a complex medical history and hospital stay. For further details, please see the entire medical record. TIME SPENT: Time for this discharge was 50 minutes and 25 minutes was spent face- to-face with the patient, discussing discharge plans and instructions. CONDITION ON DISCHARGE: Stable. VIDHI VILLASEÑOR NP CC: Dr. Jenn Tan* [id number]/CPS #: [id number] [facility]
== END 2017-02-05 18:20 | disposition home or self-care (01) ==
LOC: ED 16:08 → MEDTELE 02-04 00:31
PROVIDERS: ADMIT Hospitalist; ATTEND Internal Medicine
DX: R40.0 Somnolence (principal); E83.42 Hypomagnesemia; E87.6 Hypokalemia; E87.8 Other disorders of electrolyte and fluid balance, not elsewhere classified; R26.9 Unspecified abnormalities of gait and mobility; M79.671 Pain in right foot; S99.921A Unspecified injury of right foot, initial encounter; R41.82 Altered mental status, unspecified; E11.8 Type 2 diabetes mellitus with unspecified complications; Z79.4 Long term (current) use of insulin; E03.9 Hypothyroidism, unspecified; I50.9 Heart failure, unspecified; I10 Essential (primary) hypertension; E78.5 Hyperlipidemia, unspecified; M54.2 Cervicalgia; F32.9 Major depressive disorder, single episode, unspecified; F17.200 Nicotine dependence, unspecified, uncomplicated; W19.XXXA Unspecified fall, initial encounter; Z91.81 History of falling; Y92.9 Unspecified place or not applicable; R25.1 Tremor, unspecified
CPT/HCPCS: 36415; 70450; 80048; 80053; 81003; 82140; 83036; 83605; 83735; 84443; 85025; 85610; 93005; 94640; 94760; 96375; 99283; 99406; A9270-GY; G0378; G8978-GP-CI; G8978-GP-CL; G8979-GP-CI; G8980-GP-CI; J1644; J3480

== ENCOUNTER 2017-04-07 09:15 | Inpatient (IN) | payer MEDICARE, BC ==
[2017-04-07 09:56] LABS: Hematocrit 24 % (35-47); Mean Corpuscular HGB Conc 33 g/dl (31-36); Mean Corpuscular Hemoglobin 31 pg (27-31); Mean Corpuscular Volume 92 fL (80-97); Mean Platelet Volume 8 um3 (7.4-10.4); Red Blood Count 2.62 10^6/ul (4.0-5.4); Red Cell Distribution Width 16 % (10.5-15); White Blood Count 6.5 10^3/ul (3.5-10.8)
--- NOTE | 2017-04-07 09:56 | RAD ---
HISTORY: Weakness COMPARISONS: November 08, 2016 VIEWS:1: Single frontal portable view of the chest at 9:40 AM FINDINGS: LINES AND TUBES: None. CARDIOMEDIASTINAL SILHOUETTE: The cardiomediastinal silhouette is normal for portable technique. PLEURA: The costophrenic angles are sharp. No pleural abnormalities are noted. LUNG PARENCHYMA: The lungs are clear. ABDOMEN: The upper abdomen is clear. There is no subphrenic gas. BONES AND SOFT TISSUES: The patient is status post anterior cervical fusion IMPRESSION: NO ACTIVE CARDIOPULMONARY DISEASE.
[2017-04-07 10:08] LABS: Urine Bilirubin Negative (Negative); Urine Glucose Negative (Negative); Urine Nitrite Negative (Negative)
[2017-04-07 10:10] LABS: Albumin 3.4 g/dL (3.2-5.2); BUN/Creatinine Ratio 20.5 (8-20); Calcium 10.3 mg/dL (8.6-10.3); EGFR African American 61.9 (>60); EGFR Non-African American 48.1 (>60); Globulin 3.6 g/dL (2-4); Magnesium 1.7 mg/dL (1.9-2.7); Total Bilirubin 0.6 mg/dL (0.2-1.0)
[2017-04-07 10:11] LABS: Troponin I 0.03 ng/mL (<0.04)
[2017-04-07 10:17] LABS: Potassium 2.6 mmol/L (3.5-5.0)
[2017-04-07 10:45] LABS: TSH (Thyroid Stimulating Horm) 8.06 mcIU/mL (0.34-5.60)
[2017-04-07] MEDS ORDERED: Potassium Chlor TAB* 20 MEQ TAB.ER PO ONE (11:02)
[2017-04-07] MEDS: KCL 10 MEQ/50 ML IVPREMIX* 10 MEQ/50 ML BAG IV SCH ×2 (11:05→15:10)
[2017-04-07] MEDS ORDERED: Magnesium Sulfate 2 GM IV* 2 GM/50 ML BAG IVPB ONE (13:01)
[2017-04-07] MEDS ORDERED: KCL 20 MEQ/100 ML IVPREMIX* 20 MEQ/100 ML BAG IV ONE (13:21)
[2017-04-07] MEDS ORDERED: Pantoprazole IV* 40 MG IV ONE (13:27)
[2017-04-07] MEDS ORDERED: Pantoprazole IV* 40 MG ONE ×2 (13:38→14:22)
[2017-04-07 14:12] LABS: Free T3 2.8 pg/mL (2.5-3.9)
[2017-04-07 14:13] LABS: Free T4 0.95 ng/dL (0.61-1.12)
[2017-04-07] MEDS: Pantoprazole IV* 80 MG in NS 0.9% 250 ML* 250 ML IVPB SCH (14:38)
--- NOTE | 2017-04-07 15:26 | ED ---
Rosario Singletary Auryana, scribed for Storm Holliday MD on 04/07/17 at 1112 . Complex/Multi-Sys Presentation - HPI Summary HPI Summary: 72 year old female presents with increased extremity weakness per . He reports that she "collapses" and is too weak to hold objects or drink out of cups. She also has a cough, increased fatigue, increased urinary urgency - worse with straining on bowel movements, and melena - reports believes from the daily iron PO. She denies any fever, chills, chest pain, vomiting, diarrhea, hematuria, dysuria, or any burning with urination. She is currently on a low dose ASA. She denies any history of bleeding ulcers but reports that she has had prior episodes of suspected bleeding with low hemoglobin - Patient reports similar episodes over the last 2 years with low potassium and hemoglobin - unable to find problem. PCP is Dr. Jenn Tan. Patient is an occasional smoker , but denies any alcohol. She is a retired [employer]. - History Of Current Complaint Chief Complaint: EDWeakness Time Seen by Provider: 04/07/17 09:31 Hx Obtained From: Patient Onset/Duration: Gradual Onset, Still Present Timing: Constant Severity Currently: Moderate Severity Initially: Moderate Aggravating Factor(s): straining with bowel movements Associated Signs And Symptoms: Positive: Weakness, Melena, Anticoagulation Therapy - low dose daily ASA, Other - general fatigue, cough, increased urinary urgency.. Negative: Dysuria, Fever Related History: Similar Episode/Diagnosed As: - see HPI - Allergies/Home Medications Allergies/Adverse Reactions: Allergies Allergy/AdvReac Type Severity Reaction Status Date / Time Rosiglitazone [From Avandia] Allergy Unknown Verified 04/07/17 09:31 Reaction Details CI Pigment Blue 63 AdvReac Hallucinati Verified 04/07/17 09:31 [From Cymbalta] ons Duloxetine [From Cymbalta] AdvReac Hallucinati Verified 04/07/17 09:31 ons PMH/Surg Hx/FS Hx/Imm Hx Endocrine/Hematology History: Reports: Hx Diabetes, Hx Thyroid Disease - hypothyroid Denies: Hx Systemic Lupus Erythematosus Cardiovascular History: Reports: Hx Congestive Heart Failure, Hx Hypercholesterolemia, Hx Hypertension, Other Cardiovascular Problems/Disorders Denies: Hx Angina, Hx Coronary Artery Disease, Hx Myocardial Infarction, Hx Valvular Heart Disease Respiratory History: Reports: Other Respiratory Problems/Disorders - CHF 03/08/15 Denies: Hx Asthma, Hx Chronic Obstructive Pulmonary Disease (COPD) GI History: Reports: Hx Diverticulosis, Other GI Disorders History: Reports: Hx Dialysis, Other Problems/Disorders - "impaired kidneys" Denies: Hx Renal Disease Musculoskeletal History: Reports: Hx Fibromyalgia, Hx Orthopedic Injury - neck injury, Hx Scoliosis, Other Musculoskeletal History - upper body pain Denies: Hx Rheumatoid Arthritis Sensory History: Reports: Hx Contacts or Glasses Denies: Hx Hearing Aid Opthamlomology History: Reports: Hx Contacts or Glasses Psychiatric History: Reports: Hx Depression - Cancer History Hx Chemotherapy: No - Surgical History Surgery Procedure, Year, and Place: neck diskectomy with fusion 1997 and 2006, CHOLECYSTECTOMY Hx Anesthesia Reactions: No Infectious Disease History: No Infectious Disease History: Denies: Traveled Outside the [place] in Last 30 Days - Family History Known Family History: Positive: Cardiac Disease - Social History Occupation: Retired Lives: With Family Alcohol Use: None Hx Substance Use: No Substance Use Type: Reports: None Substance Use Comment - Amount & Last Used: nucynta Hx Tobacco Use: Yes Smoking Status (MU): Current Some Day Smoker Type: Cigarettes Amount Used/How Often: 6-7 cigarettes/day Have You Smoked in the Last Year: Yes Review of Systems Positive: Fatigue. Negative: Fever, Chills Eyes: Negative Negative: Erythema ENT: Negative Negative: Sore Throat Cardiovascular: Negative Negative: Chest Pain Positive: Cough. Negative: Shortness Of Breath Positive: Other - melena . Negative: Vomiting, Diarrhea Positive: urgency - increased. Negative: burning, dysuria, hematuria Positive: Other - weakness Skin: Negative Negative: Rash Neurological: Negative, Other - no dizziness Psychological: Normal All Other Systems Reviewed And Are Negative: Yes Physical Exam - Summary Physical Exam Summary: Constitutional: Well-developed, Well-nourished, Alert. (-) Distressed Skin: Warm, Dry HENT: Normocephalic; Atraumatic Eyes: Conjunctiva normal Neck: Musculoskeletal ROM normal neck. (-) JVD, (-) Stridor, (-) Tracheal deviation Cardio: Rhythm regular, rate normal, Heart sounds normal; Intact distal pulses; The pedal pulses are 2+ and symmetric. Radial pulses are 2+ and symmetric. (-) Murmur Pulmonary/Chest wall: Effort normal. (-) Respiratory distress, (-) Wheezes, Crackles in bilateral lung bases Abd: Soft, (-) Tenderness, (-) Distension, (-) Guarding, (-) Rebound Musculoskeletal: (-) Edema Lymph: (-) Cervical adenopathy Neuro: Alert, Oriented x3, fine resting tremor Psych: Mood and affect Normal Rectal exam: no michael blood present on exam. Triage Information Reviewed: Yes Vital Signs On Initial Exam: Initial Vitals BP 126/65 04/07/17 09:21 Vital Signs Reviewed: Yes - [place] Coma Scale Coma Scale Total: 15 Diagnostics - Vital Signs Vital Signs Temp Pulse Resp BP Pulse Ox 04/07/17 10:30 132/50 04/07/17 10:00 64 124/57 93 04/07/17 09:30 63 11 120/53 92 04/07/17 09:28 98.5 F 66 11 126/65 93 04/07/17 09:27 98.5 F 66 11 126/65 94 04/07/17 09:23 66 13 92 04/07/17 09:21 126/65 - Laboratory Lab Results: Lab Results 04/07/17 04/07/17 04/07/17 Range/Units 09:45 09:45 09:45 WBC 6.5 (3.5-10.8) 10^3/ul RBC 2.62 L (4.0-5.4) 10^6/ul Hgb 8.0 L (12.0-16.0) g/dl Hct 24 L (35-47) % MCV 92 (80-97) fL MCH 31 (27-31) pg MCHC 33 (31-36) g/dl RDW 16 H (10.5-15) % Plt Count 132 L (150-450) 10^3/ul MPV 8 (7.4-10.4) um3 Neut % (Auto) 66.0 (38-83) % Lymph % (Auto) 23.2 L (25-47) % Williams % (Auto) 6.5 (1-9) % Eos % (Auto) 3.8 (0-6) % Baso % (Auto) 0.5 (0-2) % Absolute Neuts (auto) 4.3 (1.5-7.7) 10^3/ul Absolute Lymphs (auto) 1.5 (1.0-4.8) 10^3/ul Absolute Monos (auto) 0.4 (0-0.8) 10^3/ul Absolute Eos (auto) 0.2 (0-0.6) 10^3/ul Absolute Basos (auto) 0 (0-0.2) 10^3/ul Absolute Nucleated RBC 0 10^3/ul Nucleated RBC % 0 Sodium 138 (133-145) mmol/L Potassium 2.6 L* (3.5-5.0) mmol/L Chloride 97 L (101-111) mmol/L Carbon Dioxide 36 H (22-32) mmol/L Anion Gap 5 (2-11) mmol/L BUN 23 (6-24) mg/dL Creatinine 1.12 H (0.51-0.95) mg/dL Est GFR ( Amer) 61.9 (>60) Est GFR (Non-Af Amer) 48.1 (>60) BUN/Creatinine Ratio 20.5 H (8-20) Glucose 165 H (70-100) mg/dL Lactic Acid 1.9 (0.5-2.0) mmol/L Calcium 10.3 (8.6-10.3) mg/dL Magnesium 1.7 L (1.9-2.7) mg/dL Total Bilirubin 0.60 (0.2-1.0) mg/dL AST 28 (13-39) U/L ALT 17 (7-52) U/L Alkaline Phosphatase 63 (34-104) U/L Troponin I 0.03 (<0.04) ng/mL Total Protein 7.0 (6.4-8.9) g/dL Albumin 3.4 (3.2-5.2) g/dL Globulin 3.6 (2-4) g/dL Albumin/Globulin Ratio 0.9 L (1-3) TSH 8.06 H (0.34-5.60) mcIU/mL Urine Color Urine Appearance Urine pH (5-9) Ur Specific [place] (1.010-1.030) Urine Protein (Negative) Urine Ketones (Negative) Urine Blood (Negative) Urine Nitrate (Negative) Urine Bilirubin (Negative) Urine Urobilinogen (Negative) Ur Leukocyte Esterase (Negative) Urine Glucose (Negative) 04/07/17 Range/Units 09:50 WBC (3.5-10.8) 10^3/ul RBC (4.0-5.4) 10^6/ul Hgb (12.0-16.0) g/dl Hct (35-47) % MCV (80-97) fL MCH (27-31) pg MCHC (31-36) g/dl RDW (10.5-15) % Plt Count (150-450) 10^3/ul MPV (7.4-10.4) um3 Neut % (Auto) (38-83) % Lymph % (Auto) (25-47) % Williams % (Auto) (1-9) % Eos % (Auto) (0-6) % Baso % (Auto) (0-2) % Absolute Neuts (auto) (1.5-7.7) 10^3/ul Absolute Lymphs (auto) (1.0-4.8) 10^3/ul Absolute Monos (auto) (0-0.8) 10^3/ul Absolute Eos (auto) (0-0.6) 10^3/ul Absolute Basos (auto) (0-0.2) 10^3/ul Absolute Nucleated RBC 10^3/ul Nucleated RBC % Sodium (133-145) mmol/L Potassium (3.5-5.0) mmol/L Chloride (101-111) mmol/L Carbon Dioxide (22-32) mmol/L Anion Gap (2-11) mmol/L BUN (6-24) mg/dL Creatinine (0.51-0.95) mg/dL Est GFR ( Amer) (>60) Est GFR (Non-Af Amer) (>60) BUN/Creatinine Ratio (8-20) Glucose (70-100) mg/dL Lactic Acid (0.5-2.0) mmol/L Calcium (8.6-10.3) mg/dL Magnesium (1.9-2.7) mg/dL Total Bilirubin (0.2-1.0) mg/dL AST (13-39) U/L ALT (7-52) U/L Alkaline Phosphatase (34-104) U/L Troponin I (<0.04) ng/mL Total Protein (6.4-8.9) g/dL Albumin (3.2-5.2) g/dL Globulin (2-4) g/dL Albumin/Globulin Ratio (1-3) TSH (0.34-5.60) mcIU/mL Urine Color Yellow Urine Appearance Clear Urine pH 6.0 (5-9) Ur Specific [place] 1.013 (1.010-1.030) Urine Protein Negative (Negative) Urine Ketones Negative (Negative) Urine Blood Negative (Negative) Urine Nitrate Negative (Negative) Urine Bilirubin Negative (Negative) Urine Urobilinogen Negative (Negative) Ur Leukocyte Esterase Negative (Negative) Urine Glucose Negative (Negative) Result Diagrams: 04/07/17 09:45 04/07/17 09:45 Lab Statement: Any lab studies that have been ordered have been reviewed, and results considered in the medical decision making process. - Radiology CXR Xray Interpretation: No Acute Changes Radiology Interpretation Completed By: Radiologist - EKG 09:53 EKG Interpretation: sinus rhythm of 63 BPM, no STEMI Complex Multi-Symp Course/Dx - Diagnoses Differential Diagnoses/HQI/PQRI: Other - GI BLEED, HYPOKALEMIA, DIURETIC INDUCED HYPOKALEMIA Provider Diagnoses: Hypokalemia, Symptomatic anemia, Muscle weakness - Physician Notifications Discussed Care Of Patient With: Dorothy Quiroz Time Discussed With Above Provider: 10:54 - accepts patient for admission; aware of occult blood that is still outstanding - will consult GI if needed - Critical Care Time Critical Care Time: 30-74 min - 35 Discharge - Discharge Plan Condition: Stable Disposition: ADMITTED TO [facility] Referrals: Jenn Tan MD [Primary Care Provider] - The documentation as recorded by the Rosario kennedy Auryana accurately reflects the service I personally performed and the decisions made by Miya henao Jerry, MD.
[2017-04-07] MEDS ORDERED: Dextrose 50% Syringe 50 ML* 25 GM/50 ML SYRINGE IV PUSH PRN (15:34)
[2017-04-07 15:46] LABS: Hematocrit 23 % (35-47); Hemoglobin 7.5 g/dl (12.0-16.0)
[2017-04-07] MEDS: Insulin LISPRO* 1 UNITS UNIT SUBCUT SCH (17:46)
[2017-04-07] MEDS ORDERED: Pregabalin CAP(*) 300 MG PO SCH (18:00)
[2017-04-07] MEDS ORDERED: Tapentadol(NF) 50 MG TAB PO SCH (21:00)
[2017-04-07] MEDS: Potassium Chlor TAB* 20 MEQ TAB.ER PO SCH (21:32)
[2017-04-07 22:10] LABS: Hematocrit 22 % (35-47); Hemoglobin 7.3 g/dl (12.0-16.0)
--- NOTE | 2017-04-07 23:27 | HP ---
CC: Dr. Jenn Tan* HISTORY AND PHYSICAL: DATE OF ADMISSION: 04/07/17 PRIMARY CARE PROVIDER: Dr. Jenn Tan. ATTENDING PHYSICIAN: Dr. Dorothy Perdomo *(dictated by Vidhi Caballero NP). CHIEF COMPLAINT: Weakness and collapsed at home. HISTORY OF PRESENT ILLNESS: Ms. Zavala is a 72-year-old female with a past medical history significant for diabetes mellitus, hypothyroidism, congestive heart failure, hypertension, diverticulosis, chronic cervicalgia, depression, and tobacco abuse who presents to the emergency room with complaints of increased weakness over the last week. The patient denied any previous lightheadedness or dizziness except for prior to arrival today. While getting up to the bathroom, the patient reportedly collapsed in her 's arms. There were no reports of loss of consciousness. The patient denies taking aspirin daily for a while. She also denies taking any NSAIDs, I mentioned naproxen, Aleve, Motrin, ibuprofen, and Advil and the patient denied taking any of these. The patient reported having a colonoscopy last in approximately a year ago over, but the last colonoscopy in our system is October 2015. The patient also reports having EGD in the past. According to computer records, the patient had an EGD in November 2014 at which time, she was found to have a possible healed erosive esophagitis or short segment Rojo's esophagus. Due to the patient's weakness and fatigue, she presented to the emergency room for further evaluation of her symptoms. While in the emergency room, the patient was noted to have a hemoglobin of 8.0. Previously, her hemoglobin was 11 in January 2017. The patient denies any recent fever, chills, chest pain, shortness of breath. She does report some cough. Denies any nausea, vomiting, or diarrhea. She reports some urinary frequency and melena which she related to be caused by the iron that she takes at home. During the patient's assessment, she was noted to be quite lethargic and repeatedly needs to be woke up. She states that for sometime, she has been increasingly fatigued. She does not correlate this to being started on her Nucynta. She denies any recent changes in her medications. The Hospitalists were asked to evaluate this patient for admission. PAST MEDICAL HISTORY: 1. Diabetes mellitus. 2. Hypothyroidism. 3. Congestive heart failure. 4. Hypertension. 5. Osteoporosis. 6. Diverticulosis. 7. Hyperlipidemia. 8. Chronic cervicalgia. 9. Depression. 10. Tobacco abuse. PAST SURGICAL HISTORY: 1. Status post cholecystectomy. 2. Status post cervical diskectomy and fusion x2. HOME MEDICATIONS: Include: 1. Lyrica 150 mg oral every morning and 30 mg oral every evening. 2. Metolazone 2.5 mg daily as needed for leg swelling. 3. Levothyroxine 100 mcg oral daily. 4. Isosorbide mononitrate ER 30 mg oral daily. 5. Lantus 45 units subcutaneous twice daily. 6. NovoLog insulin per carb count and sliding scale subcutaneous with meals. 7. Furosemide 20 mg oral daily. 8. Ferrous sulfate 325 mg oral every other day. 9. Vitamin B12 1000 mcg oral daily. 10. Metformin 1000 mg oral daily. 11. Amlodipine 2.5 mg oral daily. 12. Venlafaxine 37.5 mg oral daily. 13. Nucynta 50 mg oral daily at bedtime. ALLERGIES: AVANDIA and CYMBALTA. FAMILY HISTORY: The patient's sister had a history of coronary artery disease and hypertension. The patient's brother passed at age 71 from a myocardial infarction. The patient's father had a history of congestive heart failure and passed at age 70. The patient's mother had a history of VT and valvular heart disease and CHF and passed at age 82. The patient reports that both of her parents had a history of diabetes mellitus. The patient denies any family history of cancer. SOCIAL HISTORY: The patient is a current smoker, smoking approximately half a pack a day. She smokes for the last 50 plus years. The patient denies alcohol or recreational drug use. 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 She lives with her . Her , Matthew Zavala, will be her surrogate decision maker in the event she is unable to make decisions for herself. PHYSICAL EXAMINATION GENERAL APPEARANCE: The patient is drowsy, but pleasant and appears to be in no acute distress. VITAL SIGNS: Temperature 97.4, heart rate 66, respiratory rate 18, O2 sat 97% on room air, blood pressure 136/52. HEENT: Normocephalic, atraumatic. Extraocular movements are intact. RESPIRATORY: There is no accessory muscle use and lungs are clear to auscultation bilaterally. CARDIOVASCULAR: Regular rate and rhythm. S1, S2 present. There are no murmurs , rubs, or gallops heard. ABDOMEN: Soft, nontender, nondistended. There are bowel sounds present x4. EXTREMITIES: There is no lower extremity edema. DP and PT pulses are 2+ and symmetric. MUSCULOSKELETAL: There is no clubbing or cyanosis noted. The patient exhibits good strength in all extremities. NEUROLOGICAL: The patient is drowsy, but oriented x4. Cranial nerves II through XII are grossly intact. PSYCHOLOGICAL: The patient is calm and cooperative. SKIN: There are no rashes or abnormalities seen. DIAGNOSTIC STUDIES/LABORATORY DATA: Sodium 138, potassium 2.6, chloride 97, CO2 36, BUN 23, creatinine 1.12, glucose 165, magnesium 1.7, TSH 8.06. White blood cell count 6.5, hemoglobin 8.0, hematocrit 24, and platelet count 132. Stool for occult blood is positive. Urinalysis is negative. EKG shows a normal sinus rhythm with a rate of 63. There are no acute signs of ischemia. This EKG is similar to previous EKG from 02/06/17. Chest x-ray from today, radiologist's impression: No active cardiopulmonary disease. IMPRESSION: Ms. Zavala is a 72-year-old female with past medical history significant for diabetes mellitus, hypothyroidism, congestive heart failure, hypertension, diverticulosis, previous GI bleed, chronic cervicalgia, depression , and tobacco abuse who presents to the emergency room with complaints of generalized weakness and collapse at home. She will be admitted as an observation for symptomatic anemia. ASSESSMENT AND PLAN: 1. Weakness and symptomatic anemia: I suspect the patient's generalized weakness is related to her anemia. We will have Physical Therapy see her. The patient's guaiac was positive. This appears to be a GI bleed. 2. Symptomatic anemia: Again, the patient appears to have a GI bleed. We will trend her H and H. She will be started on a Protonix drip. We will place her on a clear liquid diet. Continue to monitor her H and H. Dr. Rojas with GI has been asked to consult on the patient. 3. Electrolyte abnormalities: The patient has hypokalemia and hypomagnesemia. We will give her replacement and recheck her labs again later today to ensure her potassium is improving. We will also recheck her labs again in the morning. 4. Hypothyroidism: The patient's TSH is 8.04. We will check a free T3 and T4 for now. We will continue her on her home levothyroxine dosing until the rest of the labs return. 5. Congestive heart failure: For now, we will hold the patient's Lasix as she appears to be slightly on the dry side. Due to her congestive heart failure, we will hold on IV fluids and give cautious IV fluids if it is determined that she needs further IV fluids. 6. Chronic cervicalgia: For now, we will continue the patient's home medications. If she continues to be drowsy though, we may need to consider adjusting her medications. 7. Diabetes mellitus: For now, I am going to place the patient on a lispro sliding scale. I am going to hold her Lantus as she is not eating. Her previous hemoglobin A1c in January 2017 was 8.5. After monitoring her glucoses, we will restart Lantus accordingly. We will also hold the patient's metformin while she is in the hospital. 8. Depression: The patient will be continued on her home Effexor. 9. Fluids, electrolytes, and nutrition: The patient will be on a clear liquid , consistent carbohydrate diet. 10. Code status: Full code. 11. DVT prophylaxis: The patient is at high risk and will have SCDs as chemical DVT prophylaxis is contraindicated in the setting of a possible GI bleed. 12. Disposition: Observation. TIME SPENT: Time for this admission was 60 minutes, greater than half of that was spent [id number] with the patient discussing medications, past medical history, and the events leading up to her arrival today and performing a physical examination. The case has been reviewed with the attending, Dr. Perdomo , who agrees with the plan of care. Reviewed by VIDHI CABALLERO, BI ARCHITECT- 04/10/17 1456 [id number]/[facility] #: [id number] [place]
[2017-04-08] MEDS: Pantoprazole IV* 80 MG in NS 0.9% 250 ML* 250 ML IVPB SCH ×2 (00:34→15:55)
[2017-04-08] MEDS: Potassium Chlor TAB* 20 MEQ TAB.ER PO SCH (00:34)
--- NOTE | 2017-04-08 01:15 | CONS ---
CONSULTATION REPORT: DATE OF CONSULT: 04/07/17 REQUESTING PROVIDER: Leola Crandall NP INDICATION: Anemia. NARRATIVE: Mrs. Zavala is a pleasant 72-year-old female who has a history of obesity, congestive heart failure, chronic pain, and anemia who was seen about a year and a half ago for similar circumstances, she was anemic, hospitalized for anemia in October of 2015. She underwent an upper endoscopy that was unremarkable, then a colonoscopy that revealed a small polyp, and diverticulosis , they were considering performing capsule endoscopy. The patient remained on 81 mg of aspirin every day. She was admitted to the hospital this morning due to weakness. Her hemoglobin was found to be 8. She denies any nausea, vomiting , or abdominal pain. She just feels extremely weak and tired. She is slightly dizzy. She denies any other nonsteroidals. Her stools have been black; however , she does take iron every day. ALLERGIES: To AVANDIA, CYMBALTA. PAST SURGICAL HISTORY: Surgeries include neck diskectomy, cholecystectomy. FAMILY HISTORY: Cardiac disease. PAST MEDICAL HISTORY: Please see the HPI. PHYSICAL EXAM: On physical exam, temperature is 97.4, blood pressure is 136/52 , pulse of 66. General: Well-appearing female, in no apparent distress. Alert , oriented, pleasant, and fluent. HEENT: Mucous membranes are moist without lesions, ulcers, or exudate. Neck is supple. Trachea is midline. Head is normocephalic, atraumatic. Heart: Regular rate and rhythm. Lungs: Clear to auscultation. Abdomen: Positive bowel sounds. Soft, nontender, nondistended. No hepatosplenomegaly, masses, rebound, or guarding. Skin is warm and dry. DIAGNOSTIC STUDIES/LAB DATA: Labs of note, BUN is 23, creatinine is 1.12, hemoglobin went from 8 to 7.5. ASSESSMENT AND PLAN: This is a pleasant female with anemia. She has an EGD and a colonoscopy in the past that were pretty nondiagnostic. At this point, I would like to repeat her EGD given the fact that she has been on aspirin; however, BUN is not elevated. I think if that is unremarkable, we will need to perform a capsule endoscopy. [id number]/[facility] #: [id number] [facility]
[2017-04-08] MEDS: Levothyroxine TAB* 100 MCG TAB PO SCH (05:48)
[2017-04-08 07:18] LABS: Hematocrit 23 % (35-47); Hemoglobin 7.4 g/dl (12.0-16.0)
[2017-04-08 07:42] LABS: BUN/Creatinine Ratio 14.5 (8-20); Calcium 9.3 mg/dL (8.6-10.3); EGFR African American 63.2 (>60); EGFR Non-African American 49.1 (>60); Magnesium 1.9 mg/dL (1.9-2.7); Potassium 3.3 mmol/L (3.5-5.0)
--- NOTE | 2017-04-08 07:45 | PN ---
Subjective Date of Service: 04/08/17 Interval History: Patient seen this morning. Reports feeling a bit better than yesterday but still not back to her baseline. Needs assistance to get to the bathroom. No syncope. Family History: Unchanged from Admission Social History: Unchanged from Admission Past Medical History: Unchanged from Admission Objective Active Medications: Amlodipine Besylate (Norvasc Tab*) 2.5 mg PO DAILY [facility] Cyanocobalamin (Vitamin B12 Tab*) 1,000 mcg PO DAILY [facility] Dextrose (D50w Syringe 50 Ml*) 12.5 gm IV PUSH .FOR FS < 60 - SS PRN PRN Reason: FS < 60 Pantoprazole Sodium 80 mg/ (Sodium Chloride) 250 mls @ 25 mls/hr IVPB Q10H [facility] Last Admin: 04/08/17 00:34 Dose: 25 mls/hr Insulin Human Lispro (Humalog*) 0 - 10 units SUBCUT AC [facility] PRN Reason: Protocol Last Admin: 04/07/17 17:46 Dose: 1 unit Isosorbide Mononitrate (Imdur Er Tab*) 30 mg PO DAILY [facility] Levothyroxine Sodium (Synthroid Tab*) 100 mcg PO DAILY@0600 [facility] Last Admin: 04/08/17 05:48 Dose: 100 mcg Pregabalin (Lyrica Cap(*)) 150 mg PO QAM [facility] Pregabalin (Lyrica Cap(*)) 300 mg PO QPM [facility] Last Admin: 04/07/17 17:47 Dose: 300 mg Tapentadol (Nucynta(Nf)) 50 mg PO BEDTIME [facility] Last Admin: 04/07/17 21:27 Dose: 50 mg Venlafaxine HCl (Effexor Xr Cap*) 37.5 mg PO DAILY [facility] Vital Signs 04/07/17 04/07/17 04/07/17 11:28 11:30 12:06 Temperature 97.4 F Pulse Rate 64 66 Respiratory 18 18 Rate Blood Pressure 117/53 136/52 (mmHg) O2 Sat by Pulse 94 97 Oximetry 04/07/17 04/07/17 04/07/17 15:51 17:47 19:44 Temperature 98.3 F 97.9 F Pulse Rate 62 66 Respiratory 12 18 17 Rate Blood Pressure 136/49 154/51 (mmHg) O2 Sat by Pulse 96 94 Oximetry 04/07/17 04/07/17 04/07/17 19:47 21:27 23:27 Temperature Pulse Rate Respiratory 15 15 17 Rate Blood Pressure (mmHg) O2 Sat by Pulse Oximetry 04/07/17 04/08/17 23:32 03:08 Temperature 98.5 F 98.3 F Pulse Rate 70 67 Respiratory 16 16 Rate Blood Pressure 140/47 126/50 (mmHg) O2 Sat by Pulse 94 92 Oximetry Oxygen Devices in Use Now: None Appearance: Elderly, F, laying in bed in NAD Eyes: No Scleral Icterus Ears/Nose/Mouth/Throat: Mucous Membranes Moist Neck: NL Appearance and Movements; NL JVP Respiratory: Symmetrical Chest Expansion and Respiratory Effort, - - LLL rales Cardiovascular: NL Sounds; No Murmurs; No JVD, RRR Abdominal: - - Soft, non-distended, some mild epigastric and RUQ tenderness, BS+ , no rebound/guarding Lymphatic: No Cervical Adenopathy Extremities: No Edema Skin: No Rash or Ulcers Neurological: Alert and Oriented x 3, NL Muscle Strength and Tone Result Diagrams: 04/08/17 06:33 04/08/17 06:33 Additional Lab and Data: Lab Results 04/07/17 04/07/17 04/07/17 Range/Units 09:45 09:45 09:45 WBC 6.5 (3.5-10.8) 10^3/ul RBC 2.62 L (4.0-5.4) 10^6/ul Hgb 8.0 L (12.0-16.0) g/dl Hct 24 L (35-47) % MCV 92 (80-97) fL MCH 31 (27-31) pg MCHC 33 (31-36) g/dl RDW 16 H (10.5-15) % Plt Count 132 L (150-450) 10^3/ul MPV 8 (7.4-10.4) um3 Neut % (Auto) 66.0 (38-83) % Lymph % (Auto) 23.2 L (25-47) % [place] % (Auto) 6.5 (1-9) % Eos % (Auto) 3.8 (0-6) % Baso % (Auto) 0.5 (0-2) % Absolute Neuts (auto) 4.3 (1.5-7.7) 10^3/ul Absolute Lymphs (auto) 1.5 (1.0-4.8) 10^3/ul Absolute Monos (auto) 0.4 (0-0.8) 10^3/ul Absolute Eos (auto) 0.2 (0-0.6) 10^3/ul Absolute Basos (auto) 0 (0-0.2) 10^3/ul Absolute Nucleated RBC 0 10^3/ul Nucleated RBC % 0 Sodium 138 (133-145) mmol/L Potassium 2.6 L* (3.5-5.0) mmol/L Chloride 97 L (101-111) mmol/L Carbon Dioxide 36 H (22-32) mmol/L Anion Gap 5 (2-11) mmol/L BUN 23 (6-24) mg/dL Creatinine 1.12 H (0.51-0.95) mg/dL Est GFR ( Amer) 61.9 (>60) Est GFR (Non-Af Amer) 48.1 (>60) BUN/Creatinine Ratio 20.5 H (8-20) Glucose 165 H (70-100) mg/dL Lactic Acid 1.9 (0.5-2.0) mmol/L Calcium 10.3 (8.6-10.3) mg/dL Magnesium 1.7 L (1.9-2.7) mg/dL Total Bilirubin 0.60 (0.2-1.0) mg/dL AST 28 (13-39) U/L ALT 17 (7-52) U/L Alkaline Phosphatase 63 (34-104) U/L Troponin I 0.03 (<0.04) ng/mL Total Protein 7.0 (6.4-8.9) g/dL Albumin 3.4 (3.2-5.2) g/dL Globulin 3.6 (2-4) g/dL Albumin/Globulin Ratio 0.9 L (1-3) TSH 8.06 H (0.34-5.60) mcIU/mL Urine Color Urine Appearance Urine pH (5-9) Ur Specific [place] (1.010-1.030) Urine Protein (Negative) Urine Ketones (Negative) Urine Blood (Negative) Urine Nitrate (Negative) Urine Bilirubin (Negative) Urine Urobilinogen (Negative) Ur Leukocyte Esterase (Negative) Urine Glucose (Negative) 06/26/17 Range/Units 09:50 WBC (3.5-10.8) 10^3/ul RBC (4.0-5.4) 10^6/ul Hgb (12.0-16.0) g/dl Hct (35-47) % MCV (80-97) fL MCH (27-31) pg MCHC (31-36) g/dl RDW (10.5-15) % Plt Count (150-450) 10^3/ul MPV (7.4-10.4) um3 Neut % (Auto) (38-83) % Lymph % (Auto) (25-47) % [place] % (Auto) (1-9) % Eos % (Auto) (0-6) % Baso % (Auto) (0-2) % Absolute Neuts (auto) (1.5-7.7) 10^3/ul Absolute Lymphs (auto) (1.0-4.8) 10^3/ul Absolute Monos (auto) (0-0.8) 10^3/ul Absolute Eos (auto) (0-0.6) 10^3/ul Absolute Basos (auto) (0-0.2) 10^3/ul Absolute Nucleated RBC 10^3/ul Nucleated RBC % Sodium (133-145) mmol/L Potassium (3.5-5.0) mmol/L Chloride (101-111) mmol/L Carbon Dioxide (22-32) mmol/L Anion Gap (2-11) mmol/L BUN (6-24) mg/dL Creatinine (0.51-0.95) mg/dL Est GFR ( Amer) (>60) Est GFR (Non-Af Amer) (>60) BUN/Creatinine Ratio (8-20) Glucose (70-100) mg/dL Lactic Acid (0.5-2.0) mmol/L Calcium (8.6-10.3) mg/dL Magnesium (1.9-2.7) mg/dL Total Bilirubin (0.2-1.0) mg/dL AST (13-39) U/L ALT (7-52) U/L Alkaline Phosphatase (34-104) U/L Troponin I (<0.04) ng/mL Total Protein (6.4-8.9) g/dL Albumin (3.2-5.2) g/dL Globulin (2-4) g/dL Albumin/Globulin Ratio (1-3) TSH (0.34-5.60) mcIU/mL Urine Color Yellow Urine Appearance Clear Urine pH 6.0 (5-9) Ur Specific [place] 1.013 (1.010-1.030) Urine Protein Negative (Negative) Urine Ketones Negative (Negative) Urine Blood Negative (Negative) Urine Nitrate Negative (Negative) Urine Bilirubin Negative (Negative) Urine Urobilinogen Negative (Negative) Ur Leukocyte Esterase Negative (Negative) Urine Glucose Negative (Negative) Assess/Plan/Problems-Billing Assessment: Acute blood loss anemia 2/2 GI bleed in a 72 yo F with hx of HTN, HLD, hypothyroidism, DM, cervicalgia - Patient Problems (1) Acute blood loss anemia Current Visit: Yes Comment: possibly 2/2 GI bleed. Will transfuse 1 unit as patient seems to be symptomatic. Continue to monitor H/H. Continue Protonix gtt. Appreciate GI assistance, plan for EGD today. (2) Electrolyte abnormality Current Visit: No Comment: Replete as needed, BMP and Mg pending. (3) Hypothyroidism Current Visit: No Comment: TSH elevated but FT3 and FT4 WNL. Continue home synthroid dose of 100 mcg daily. (4) CHF (congestive heart failure) Current Visit: No Comment: No evidence of excaerbation. Holding IVF and Lasix at this point. (5) Cervicalgia Current Visit: No Comment: Continue Nucynta and Lyrica (6) HTN (hypertension) Current Visit: No Comment: Continue Norvasc and Imdur (7) Diabetes Current Visit: No Comment: Continue HISS. Holding home Lantus for now. (8) DVT prophylaxis Current Visit: No Comment: SCDs
[2017-04-08] MEDS: Insulin LISPRO* 1 UNITS UNIT SUBCUT SCH ×3 (08:55→18:15)
[2017-04-08] MEDS: amLODIPine TAB* 5 MG PO SCH (09:00)
[2017-04-08] MEDS ORDERED: Ferrous Sulfate TAB* 325 MG PO SCH (09:00)
[2017-04-08] MEDS: Cyanocobalamin TAB* 500 MCG PO SCH (09:00)
[2017-04-08] MEDS ORDERED: Pregabalin CAP(*) 50 MG PO SCH (09:00)
[2017-04-08] MEDS: Isosorbide Mononitrate ER TAB* 30 MG PO SCH (09:01)
[2017-04-08] MEDS: Venlafaxine EXT RELEASE CAP* 37.5 MG PO SCH (09:01)
[2017-04-08] MEDS ORDERED: Potassium Chlor TAB* 20 MEQ TAB.ER PO SCH (12:00)
[2017-04-08] MEDS ORDERED: Midazolam* 1 MG/ML 5 ML VIAL (5 MG) ONE (14:13)
[2017-04-08] MEDS ORDERED: Meperidine SYRINGE* 50 MG/ML ONE (14:13)
[2017-04-08] MEDS: Potassium Chloride LIQUID* 20 MEQ PACKET PO SCH ×2 (15:57→18:16)
[2017-04-08 16:26] LABS: Ferritin 28.2 ng/mL (11-307)
[2017-04-08 17:13] LABS: Hematocrit 26 % (35-47); Hemoglobin 8.3 g/dl (12.0-16.0)
[2017-04-09] MEDS: Pantoprazole IV* 80 MG in NS 0.9% 250 ML* 250 ML IVPB SCH (02:25)
[2017-04-09] MEDS: Levothyroxine TAB* 100 MCG TAB PO SCH (06:06)
[2017-04-09 06:40] LABS: Hematocrit 28 % (35-47); Hemoglobin 9.2 g/dl (12.0-16.0); Mean Corpuscular HGB Conc 33 g/dl (31-36); Mean Corpuscular Hemoglobin 31 pg (27-31); Mean Corpuscular Volume 93 fL (80-97); Mean Platelet Volume 8 um3 (7.4-10.4); Red Blood Count 3.01 10^6/ul (4.0-5.4); Red Cell Distribution Width 16 % (10.5-15); White Blood Count 6.3 10^3/ul (3.5-10.8)
[2017-04-09 06:53] LABS: Calcium 9.2 mg/dL (8.6-10.3); EGFR African American 58.8 (>60); EGFR Non-African American 45.7 (>60); Potassium 3.8 mmol/L (3.5-5.0)
--- NOTE | 2017-04-09 08:21 | PN ---
Subjective Date of Service: 04/09/17 Interval History: Nucynta and Lyrica held last night due to lethargy, after discussing with it seems that patient sleeps for significant amounts of time at home. Patient seen this morning. Says she is feeling a bit confused but is able to tell me where she is, the year, the day of the week and why she is here and what was done yesterday. She seems much more alert today. Denies pain. Hoping to go home today. Family History: Unchanged from Admission Social History: Unchanged from Admission Past Medical History: Unchanged from Admission Objective Active Medications: Amlodipine Besylate (Norvasc Tab*) 2.5 mg PO DAILY [facility] Cyanocobalamin (Vitamin B12 Tab*) 1,000 mcg PO DAILY [facility] Dextrose (D50w Syringe 50 Ml*) 12.5 gm IV PUSH .FOR FS < 60 - SS PRN Ferrous Sulfate (Ferrous Sulfate Tab*) 325 mg PO EVERY OTHER DAY [facility] Insulin Human Lispro (Humalog*) 0 - 10 units SUBCUT AC [facility] Isosorbide Mononitrate (Imdur Er Tab*) 30 mg PO DAILY [facility] Levothyroxine Sodium (Synthroid Tab*) 100 mcg PO DAILY@0600 [facility] Pregabalin (Lyrica Cap(*)) 150 mg PO QAM [facility] Venlafaxine HCl (Effexor Xr Cap*) 37.5 mg PO DAILY [facility] Vital Signs 04/08/17 04/08/17 19:49 23:56 Temperature 98.2 F 98.3 F Pulse Rate 69 70 Respiratory 17 16 Rate Blood Pressure 134/53 156/60 (mmHg) O2 Sat by Pulse 97 96 Oximetry Oxygen Devices in Use Now: None Appearance: Elderly, F, sitting at the edge of the bed in NAD Eyes: No Scleral Icterus Ears/Nose/Mouth/Throat: Mucous Membranes Moist Neck: NL Appearance and Movements; NL JVP Respiratory: Symmetrical Chest Expansion and Respiratory Effort, Clear to Auscultation Cardiovascular: NL Sounds; No Murmurs; No JVD, RRR Abdominal: NL Sounds; No Tenderness; No Distention Lymphatic: No Cervical Adenopathy Extremities: No Edema Skin: No Rash or Ulcers Neurological: Alert and Oriented x 3 Result Diagrams: 04/09/17 05:43 04/09/17 05:43 Additional Lab and Data: Lab Results 04/07/17 04/07/1704/07/17 Range/Units 09:45 09:45 09:45 WBC 6.5 (3.5-10.8) 10^3/ul RBC 2.62 L (4.0-5.4) 10^6/ul Hgb 8.0 L (12.0-16.0) g/dl Hct 24 L (35-47) % MCV 92 (80-97) fL MCH 31 (27-31) pg MCHC 33 (31-36) g/dl RDW 16 H (10.5-15) % Plt Count 132 L (150-450) 10^3/ul MPV 8 (7.4-10.4) um3 Neut % (Auto) 66.0 (38-83) % Lymph % (Auto) 23.2 L (25-47) % [place] % (Auto) 6.5 (1-9) % Eos % (Auto) 3.8 (0-6) % Baso % (Auto) 0.5 (0-2) % Absolute Neuts (auto) 4.3 (1.5-7.7) 10^3/ul Absolute Lymphs (auto) 1.5 (1.0-4.8) 10^3/ul Absolute Monos (auto) 0.4 (0-0.8) 10^3/ul Absolute Eos (auto) 0.2 (0-0.6) 10^3/ul Absolute Basos (auto) 0 (0-0.2) 10^3/ul Absolute Nucleated RBC 0 10^3/ul Nucleated RBC % 0 Sodium 138 (133-145) mmol/L Potassium 2.6 L* (3.5-5.0) mmol/L Chloride 97 L (101-111) mmol/L Carbon Dioxide 36 H (22-32) mmol/L Anion Gap 5 (2-11) mmol/L BUN 23 (6-24) mg/dL Creatinine 1.12 H (0.51-0.95) mg/dL Est GFR ( Amer) 61.9 (>60) Est GFR (Non-Af Amer) 48.1 (>60) BUN/Creatinine Ratio 20.5 H (8-20) Glucose 165 H (70-100) mg/dL Lactic Acid 1.9 (0.5-2.0) mmol/L Calcium 10.3 (8.6-10.3) mg/dL Magnesium 1.7 L (1.9-2.7) mg/dL Total Bilirubin 0.60 (0.2-1.0) mg/dL AST 28 (13-39) U/L ALT 17 (7-52) U/L Alkaline Phosphatase 63 (34-104) U/L Troponin I 0.03 (<0.04) ng/mL Total Protein 7.0 (6.4-8.9) g/dL Albumin 3.4 (3.2-5.2) g/dL Globulin 3.6 (2-4) g/dL Albumin/Globulin Ratio 0.9 L (1-3) TSH 8.06 H (0.34-5.60) mcIU/mL Urine Color Urine Appearance Urine pH (5-9) Ur Specific [place] (1.010-1.030) Urine Protein (Negative) Urine Ketones (Negative) Urine Blood (Negative) Urine Nitrate (Negative) Urine Bilirubin (Negative) Urine Urobilinogen (Negative) Ur Leukocyte Esterase (Negative) Urine Glucose (Negative) 04/07/17 Range/Units 09:50 WBC (3.5-10.8) 10^3/ul RBC (4.0-5.4) 10^6/ul Hgb (12.0-16.0) g/dl Hct (35-47) % MCV (80-97) fL MCH (27-31) pg MCHC (31-36) g/dl RDW (10.5-15) % Plt Count (150-450) 10^3/ul MPV (7.4-10.4) um3 Neut % (Auto) (38-83) % Lymph % (Auto) (25-47) % [place] % (Auto) (1-9) % Eos % (Auto) (0-6) % Baso % (Auto) (0-2) % Absolute Neuts (auto) (1.5-7.7) 10^3/ul Absolute Lymphs (auto) (1.0-4.8) 10^3/ul Absolute Monos (auto) (0-0.8) 10^3/ul Absolute Eos (auto) (0-0.6) 10^3/ul Absolute Basos (auto) (0-0.2) 10^3/ul Absolute Nucleated RBC 10^3/ul Nucleated RBC % Sodium (133-145) mmol/L Potassium (3.5-5.0) mmol/L Chloride (101-111) mmol/L Carbon Dioxide (22-32) mmol/L Anion Gap (2-11) mmol/L BUN (6-24) mg/dL Creatinine (0.51-0.95) mg/dL Est GFR ( Amer) (>60) Est GFR (Non-Af Amer) (>60) BUN/Creatinine Ratio (8-20) Glucose (70-100) mg/dL Lactic Acid (0.5-2.0) mmol/L Calcium (8.6-10.3) mg/dL Magnesium (1.9-2.7) mg/dL Total Bilirubin (0.2-1.0) mg/dL AST (13-39) U/L ALT (7-52) U/L Alkaline Phosphatase (34-104) U/L Troponin I (<0.04) ng/mL Total Protein (6.4-8.9) g/dL Albumin (3.2-5.2) g/dL Globulin (2-4) g/dL Albumin/Globulin Ratio (1-3) TSH (0.34-5.60) mcIU/mL Urine Color Yellow Urine Appearance Clear Urine pH 6.0 (5-9) Ur Specific [place] 1.013 (1.010-1.030) Urine Protein Negative (Negative) Urine Ketones Negative (Negative) Urine Blood Negative (Negative) Urine Nitrate Negative (Negative) Urine Bilirubin Negative (Negative) Urine Urobilinogen Negative (Negative) Ur Leukocyte Esterase Negative (Negative) Urine Glucose Negative (Negative) Assess/Plan/Problems-Billing Assessment: Acute blood loss anemia 2/2 GI bleed in a 72 yo F with hx of HTN, HLD, hypothyroidism, DM, cervicalgia - Patient Problems (1) Acute blood loss anemia Current Visit: Yes Comment: possibly 2/2 GI bleed. Good response to blood transfusion. EGD did not show any clear sources of bleeding. Will need to be set up for capsule endoscopy as outpatient. Ferritin at low end of normal. Continue PO iron. (2) Electrolyte abnormality Current Visit: No Comment: Repleted (3) Hypothyroidism Current Visit: No Comment: TSH elevated but FT3 and FT4 WNL. Continue home synthroid dose of 100 mcg daily. (4) CHF (congestive heart failure) Current Visit: No Comment: No evidence of excaerbation. Holding IVF and Lasix at this point. (5) Cervicalgia Current Visit: No Comment: Held Nucynta and Lyrica last night with improvement in mentation this morning. Will 1/2 dose of Lyrica today and hold Nucynta on discharge. (6) HTN (hypertension) Current Visit: No Comment: Continue Norvasc and Imdur (7) Diabetes Current Visit: No Comment: Continue HISS. Holding home Lantus for now. (8) DVT prophylaxis Current Visit: No Comment: SCDs Status and Disposition: Possible discharge today
[2017-04-09] MEDS: amLODIPine TAB* 5 MG PO SCH (08:56)
[2017-04-09] MEDS: Cyanocobalamin TAB* 500 MCG PO SCH (08:56)
[2017-04-09] MEDS: Isosorbide Mononitrate ER TAB* 30 MG PO SCH (08:59)
[2017-04-09] MEDS: Venlafaxine EXT RELEASE CAP* 37.5 MG PO SCH (08:59)
[2017-04-09] MEDS ORDERED: Pregabalin CAP(*) 25 MG PO SCH (09:00)
[2017-04-09] MEDS: Insulin LISPRO* 1 UNITS UNIT SUBCUT SCH (09:00)
[2017-04-09 10:25] VITALS: BP 135/77
--- NOTE | 2017-04-09 12:26 | PRO ---
DATE: 04/08/17 - ROOM #422 REFERRING PHYSICIANS: Jenn Tan, Cameron Madison * PROCEDURE: Upper gastrointestinal endoscopy through to distal duodenum. 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 As an outpatient, she takes Nucynta, Lyrica, insulin, metolazone, Lasix, metformin, amlodipine and Effexor. Here in the hospital she has been heme positive, though has not had any gross bleeding. Today, she passed a greenish brown mucoid stool that was submitted. Again, she has not had any overt bleeding. In September 2015, she had an upper endoscopy by Dr Neri investigating a similar presentation, though at that time her hemoglobin was actually 6.8, falling to 5.6 with hydration. Then a month later, she had colonoscopy with removal of a sigmoid pedunculated polyp. There had been a prior 2011 colonoscopy in [place] said to be negative. She had been admitted to the hospital here in January 2017 with weakness and lethargy with history of frequent falls at home. In October 2016, she presented having passed out with the impression in the emergency room of a viral syndrome. In October 2016, she was on the same pain medicines and also on baclofen. ENDOSCOPIST: Dr. Izquierdo. MEDICATIONS: Midazolam 2, meperidine 25. FINDINGS: She is a somewhat lethargic woman who nonetheless converses accurately, but slowly. She is oriented x3. She is in no cardiorespiratory distress. EGD: Larynx - limited views symmetric. Esophagus - easily entered and the mucosa is normal in the upper, mid and lower esophagus with a couple of short 1.5 to 2 cm tongues of Rojo's that are nonetheless smooth. There are no erosions. EG junction is normally snug at 39. Stomach - generally normal mucosa and a normal rugal pattern. There is a slight splotchy erythema in the lower body and antrum. There are no erosions and no blood. The EG junction on retroflexion appears normal. The pylorus appears normal. Duodenum - the bulb and second through fourth portions appear normal. There is a very small AVM in the third portion, not bleeding. It appeared innocuous. IMPRESSION: 1. Short segment Rojo's - no active peptic lesions and not a source for chronic anemia. 2. Minimal gastric erythema. 3. Anemia - normocytic with heme-positive stool - transfusion has been done and is appropriate and once her mental status is evaluated, she can be followed up as an outpatient to determine based on all her problems together what is an appropriate next step. Capsule endoscopy is a consideration, but not as an inpatient in her current mental state. Addendum: stool today heme+ [id number]/[facility] #: [id number] [facility]
--- NOTE | 2017-04-10 08:32 | DS ---
CC: Dr. Jenn Tan * DISCHARGE SUMMARY: DATE OF ADMISSION: 04/07/17 DATE OF DISCHARGE: 04/09/17 PCP: Dr. Jenn Tan. PRINCIPAL DISCHARGE DIAGNOSES: 1. Acute blood loss anemia, likely due to gastrointestinal bleed. 2. Lethargy and weakness, felt to be due to pain medications. STUDIES DONE DURING HOSPITALIZATION: 1. Chest x-ray, impression: No active cardiopulmonary disease. 2. Upper endoscopy: Final report is pending at this time; however, preliminary report from Dr. Izquierdo indicated no evidence of bleeding. DISCHARGE MEDICATION REGIMEN: 1. Lyrica 75 mg in the morning, 150 mg by mouth at night. 2. Effexor 37.5 mg by mouth daily. 3. Amlodipine 2.5 mg by mouth daily. 4. Metformin 1 tablet 1000 mg by mouth daily. 5. Vitamin B12 1000 mcg by mouth daily. 6. Ferrous sulfate 1 tablet by mouth every other day. 7. Lasix 20 mg by mouth daily. 8. NovoLog insulin sliding scale. 9. Lantus 10 units subcutaneous 2 times daily. 10. Imdur 30 mg by mouth daily. 11. Synthroid 100 mcg by mouth daily. 12. Metolazone 2.5 mg by mouth daily as needed for swelling. Medication discontinued this admission: Nucynta. HPI AND HOSPITAL SUMMARY: Please see the full history and physical by Leola Crandall NP, for full details. Briefly, Ms. Zavala is a 72-year-old female with a past medical history of diabetes, hypothyroidism, hypertension, diverticulosis, chronic pain, depression, who presented to the hospital with increasing weakness and an episode where she collapsed in her 's arm. The patient did not lose consciousness. She has been feeling weak and has been sleeping frequently as of late. The patient was noted to be anemic on her blood work. Her hemoglobin nadired 7.3 this admission, she was transfused 1 unit PRBCs. The patient was noted to have guaiac-positive stool. GI was consulted to perform an upper endoscopy. Again, the final report is pending at this time; however, there were no significant findings noted. No active bleeding. The patient was on a PPI drip, which was stopped. She responded very well to 1 unit of blood transfusion. The patient was very lethargic throughout the day of her EGD. That evening her Nucynta was stopped and her Lyrica was held. Following morning, she stated she felt a bit confused, but this resolved and she was much more alert and energetic. I think that as noted in previous hospitalizations, her pain medications were likely causing a significant amount of lethargy and possibly some of her gait instability. I recommended stopping her Nucynta and cut her Lyrica dosing in half. I encouraged her to follow up closely with her physicians, particularly Dr. Tan and Dr. Downey, regarding her pain medications going forward. Dr. Izquierdo would like to see the patient in followup for capsule endoscopy to see if there may be some bleeding further down the small intestine. She did have the ferritin level checked here in the hospital, that was 28.2, which is on the very low side of normal. She will be continued on oral iron. The patient's Lantus was held throughout the hospitalization. She will be restarted on discharge on a small dose and if her BGs are running high, can increase as needed. TIME SPENT: Total time spent on this discharge 50 minutes. This is a summary of the hospitalization, please see the full medical record for further details. [id number]/[id number] #: [id number] MTDD
== END 2017-04-09 12:00 | disposition home or self-care (01) | DRG 378 ==
LOC: ED 09:15 → MED 11:00 → OBSVTOIN 04-08 15:43 → MED 04-09 03:44
PROVIDERS: ADMIT Internal Medicine; ATTEND Hospitalist
PROC: 30233N0 Transfusion of Autologous Red Blood Cells into Peripheral Vein, Percutaneous Approach (ICD-10-PCS; principal; 2017-04-08)
PROC: 0DJ08ZZ Inspection of Upper Intestinal Tract, Via Natural or Artificial Opening Endoscopic (ICD-10-PCS; 2017-04-08)
DX: K92.2 Gastrointestinal hemorrhage, unspecified (principal); D62 Acute posthemorrhagic anemia; E11.9 Type 2 diabetes mellitus without complications; I50.9 Heart failure, unspecified; I11.0 Hypertensive heart disease with heart failure; E03.9 Hypothyroidism, unspecified; M81.0 Age-related osteoporosis without current pathological fracture; E78.5 Hyperlipidemia, unspecified; G89.29 Other chronic pain; F17.210 Nicotine dependence, cigarettes, uncomplicated; M54.2 Cervicalgia; F32.9 Major depressive disorder, single episode, unspecified; Z79.4 Long term (current) use of insulin; Z79.84 Long term (current) use of oral hypoglycemic drugs
CPT/HCPCS: 36415; 71010; 80048; 80053; 81003; 82272; 82728; 83605; 83735; 84132; 84439; 84443; 84481; 84484; 85014; 85018; 85025; 85027; 86850; 86900; 86901; 86922; 93005; 99283; 99406; A9270-GY; J2250; J3480; P9040

== ENCOUNTER 2017-04-21 19:31 | Inpatient (IN) | payer MEDICARE, BC ==
--- NOTE | 2017-04-21 19:51 | ED ---
Alfreda Singletary Thomas, scribed for Pino Del Valle MD on 04/21/17 at 1950 . Neurological HPI - HPI Summary HPI Summary: This patient is a 72 y/o F presenting to the ED c/o neurological deficits. 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 Per nursing documentation, pt is occasionally verbal with one-word answers but predominantly nonverbal, has bilateral weakness in all limbs, and no facial droop. Per EMS, her last known normal time was 16:30 today. Per EMS, at that time her blood sugar was over 300 and she was given an unknown amount of insulin, after which her blood sugar dropped to 166. EMS was called at 18:27. PMHx: DM, HTN, and CHF. SHx: smoker. - History of Current Complaint Stated Complaint: POSSIBLE STROKE Hx Obtained From: Patient, EMS Onset/Duration: Still Present, Other - Last known time well was 16:30 today. Timing: Constant Associated Signs and Symptoms: Positive: Weakness - L-sided per EMS, bilaeral per nursing, Impaired Speech - per nursing, pt is occasionally verbal but predominantly nonverbal - Additional Pertinent History Primary Care Physician: [id number] - Allergy/Home Medications Allergies/Adverse Reactions: Allergies Allergy/AdvReac Type Severity Reaction Status Date / Time Rosiglitazone [From Avandia] Allergy Unknown Verified 04/07/17 09:31 Reaction Details CI Pigment Blue 63 AdvReac Hallucinati Verified 04/07/17 09:31 [From Cymbalta] ons Duloxetine [From Cymbalta] AdvReac Hallucinati Verified 04/07/17 09:31 ons PMH/Surg Hx/FS Hx/Imm Hx Previously Healthy: No Endocrine/Hematology History: Reports: Hx Diabetes, Hx Thyroid Disease - hypothyroid Denies: Hx Systemic Lupus Erythematosus Cardiovascular History: Reports: Hx Congestive Heart Failure, Hx Hypercholesterolemia, Hx Hypertension Denies: Hx Angina, Hx Coronary Artery Disease, Hx Myocardial Infarction, Hx Valvular Heart Disease Respiratory History: Reports: Other Respiratory Problems/Disorders - CHF 03/08/15 Denies: Hx Asthma, Hx Chronic Obstructive Pulmonary Disease (COPD) GI History: Reports: Hx Diverticulosis, Other GI Disorders History: Reports: Hx Dialysis, Other Problems/Disorders - "impaired kidneys" Denies: Hx Renal Disease Musculoskeletal History: Reports: Hx Fibromyalgia, Hx Orthopedic Injury - neck injury, Hx Scoliosis, Other Musculoskeletal History - upper body pain Denies: Hx Rheumatoid Arthritis Sensory History: Reports: Hx Contacts or Glasses Denies: Hx Hearing Aid Opthamlomology History: Reports: Hx Contacts or Glasses Psychiatric History: Reports: Hx Depression - Cancer History Hx Chemotherapy: No - Surgical History Surgery Procedure, Year, and Place: neck diskectomy with fusion 1997 and 2006, CHOLECYSTECTOMY Hx Anesthesia Reactions: No - Family History Known Family History: Positive: Cardiac Disease - Social History Alcohol Use: None Hx Substance Use: No Substance Use Type: Reports: None Substance Use Comment - Amount & Last Used: nucynta Hx Tobacco Use: Yes Smoking Status (MU): Current Some Day Smoker Type: Cigarettes Amount Used/How Often: 6-7 cigarettes/day Have You Smoked in the Last Year: Yes Review of Systems Positive: Fever Eyes: Negative ENT: Negative Cardiovascular: Negative Respiratory: Negative Gastrointestinal: Negative Genitourinary: Negative Musculoskeletal: Negative Skin: Negative Neurological: Other - POS: 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 strengths, "left pupil a little sluggish ", facial droop (present per EMS, absent per nursing), per nursing pt is predominantly nonverbal but occasionally verbal Positive: Weakness - left-sided per EMS, bilateral per nursing Psychological: Normal All Other Systems Reviewed And Are Negative: Yes Physical Exam Triage Information Reviewed: Yes Vital Signs Reviewed: Yes Completion Of Physical Exam Limited Due To: Altered Mental Status Appearance: Positive: No Pain Distress, Ill-Appearing Skin: Positive: Warm Head/Face: Positive: Normal Head/Face Inspection Eyes: Positive: BOGDAN ENT: Positive: Hearing grossly normal Neck: Positive: Supple Respiratory/Lung Sounds: Positive: Clear to Auscultation, Breath Sounds Present Cardiovascular: Positive: RRR Abdomen Description: Positive: Nontender, Soft Bowel Sounds: Positive: Present Musculoskeletal: Positive: Strength/ROM Intact Neurological: Positive: Slurred Speech Psychiatric: Positive: Anxious AVPU Assessment: Pain (Reponds To) Diagnostics - Laboratory Result Diagrams: 04/21/17 19:59 04/21/17 19:59 Lab Statement: Any lab studies that have been ordered have been reviewed, and results considered in the medical decision making process. - Radiology CXR Xray Interpretation: Positive (See Comments) - In the correct clinical setting the radiographic findings could be seen in the setting of exacerbation of congestive heart failure. Radiology Interpretation Completed By: Radiologist - CT CT Brain CT Interpretation: No Acute Changes - Normal CT of the brain CT Interpretation Completed By: Radiologist NIH Scale - NIH Scale Level of Consciousness: Responds to Minor Stimulation Ask Patient the Month and His/Her Age: Both Correct Ask Pt to Open/Close Eyes and Business Editor/Release Non-Paretic Hand: Both Correctly Best Gaze (Only Horizontal Eye Movement): Normal Visual Field Testing: No Visual Loss Facial Paresis-Pt to Smile & Close Eyes or Grimace Symmetry: Normal/Symmetrical Motor Function - Right Arm: Drifts LT 10 seconds Motor Function - Left Arm: Drifts LT 10 seconds Motor Function - Right Leg: Drifts LT 10 seconds Motor Function - Left Leg: Drifts LT 10 seconds Limb Ataxia-Must be out of Proportion to Weakness Present: Absent Sensory (Use Pinprick to Test Arms/Legs/Trunk/Face): Normal Best Language (Describe Picture, Name Items): No Aphasia Dysarthria (Read Several Words): Normal Extinction and Inattention: No Abnormality Total Score: 5 Re-Evaluation - Re-Evaluation Second Eval Re-Evaluation Time: 19:58 Change: Improved Course/Dx - Diagnoses Provider Diagnoses: Altered mental status, unspecified - Physician Notifications Instructed by Provider To: Admit As Inpatient - Critical Care Time Critical Care Time: 30-74 min Discharge - Discharge Plan Condition: Fair Disposition: ADMITTED TO [facility] documentation as recorded by the Alfreda kennedy Thomas accurately reflects the service I personally performed and the decisions made by , Pino Del Valle MD.
[2017-04-21 20:08] LABS: Hematocrit 29 % (35-47); Hemoglobin 9.5 g/dl (12.0-16.0); Mean Corpuscular HGB Conc 33 g/dl (31-36); Mean Corpuscular Hemoglobin 30 pg (27-31); Mean Corpuscular Volume 92 fL (80-97); Mean Platelet Volume 8 um3 (7.4-10.4); Red Blood Count 3.13 10^6/ul (4.0-5.4); Red Cell Distribution Width 16 % (10.5-15); White Blood Count 8.2 10^3/ul (3.5-10.8)
--- NOTE | 2017-04-21 20:08 | RAD ---
INDICATION: Left-sided weakness and left facial droop COMPARISON: Most recent comparison CT is dated February 03, 2017 TECHNIQUE: Contiguous axial sections of the brain were obtained from the skull base to the vertex without contrast. FINDINGS: The ventricles, cisterns and sulci are within normal limits. The wadsworth-white matter differentiation is adequately maintained and there is no sulcal effacement. No significant focal abnormality or mass effect is present. There is no evidence for intracranial hemorrhage. No significant focal osseous abnormality is present. The visualized portion of the paranasal sinuses and mastoid air cells appear clear. IMPRESSION: Normal CT of the brain. Findings were reported to Dr. Del Valle over the telephone at 2000 hours on April 21, 2017.
[2017-04-21 20:17] LABS: Add Diff/Slide Review? Slide Review Added; Comments Flag Yes
[2017-04-21 20:32] LABS: Troponin I 0.01 ng/mL (<0.04)
[2017-04-21 20:33] LABS: Albumin 3.6 g/dL (3.2-5.2); BUN/Creatinine Ratio 6.9 (8-20); Calcium 9.3 mg/dL (8.6-10.3); EGFR African American 68.9 (>60); EGFR Non-African American 53.6 (>60); Globulin 3.9 g/dL (2-4); HDL Cholesterol 33.7 mg/dL; Potassium 3.1 mmol/L (3.5-5.0); Total Bilirubin 0.6 mg/dL (0.2-1.0); Total Protein 7.5 g/dL (6.4-8.9)
--- NOTE | 2017-04-21 20:37 | RAD ---
INDICATION: Altered mental status COMPARISON: Chest x-ray dated April 07, 2017 TECHNIQUE: Single AP portable view of the chest was obtained. FINDINGS: Image quality is compromised due to the relative inferiority of a portable chest x-ray. There is mild cardiomegaly. The pulmonary vasculature is indistinct and mildly engorged relative to the previous chest x-ray. There are faint patchy densities overlying the bilateral mid level lungs. There is left-sided costophrenic angle blunting. Visualized bones are normal for the patient's age. IMPRESSION: In the correct clinical setting the radiographic findings could be seen in the setting of exacerbation of congestive heart failure.
[2017-04-21] MEDS ORDERED: Dextrose 50% Syringe 50 ML* 25 GM/50 ML SYRINGE IV PUSH PRN (21:30)
[2017-04-21] MEDS ORDERED: Acetaminophen SUPP* 650 MG SUPP PR PRN (21:57)
[2017-04-21] MEDS ORDERED: NS 0.9% 1000 ML* 1,000 ML IV SCH (22:00)
[2017-04-21 22:05] LABS: C Reactive Protein 25.01 mg/L (< 5.00)
--- NOTE | 2017-04-21 22:38 | RAD ---
INDICATION: Red swollen area at left lateral thigh COMPARISON: None TECHNIQUE: Real time ultrasound images of the left lateral thigh were acquired with parker scale and Doppler color flow imaging. FINDINGS: Sonographic imaging at the erythematous and painful area of the left lateral thigh shows no subcutaneous fluid collection or abscess. IMPRESSION: Normal sonographic examination of the subcutaneous tissue of the left lateral thigh.
[2017-04-22] MEDS: Clindamycin 600 MG IVPREMIX(* 600 MG/50 ML SDV IV SCH ×3 (00:30→12:55)
[2017-04-22] MEDS: Heparin VIAL(*) 5000 UNITS/ML VIAL (FIVE THOUSAND) SUBCUT SCH ×4 (00:34→21:04)
[2017-04-22] MEDS: DOXYcycline IV* 100 MG in NS 0.9% 250 ML* 250 ML IVPB SCH ×2 (01:14→12:54)
--- NOTE | 2017-04-22 01:39 | HP ---
CC: Dr. Jenn Tan * [facility] MEDICINE HISTORY AND PHYSICAL: DATE OF ADMISSION: 04/21/17 PRIMARY CARE PHYSICIAN: Dr. Jenn Tan. ATTENDING PHYSICIAN: Dr. Joann Colon * (dictation provided by Tamica Adames NP) CHIEF COMPLAINT: Confusion and weakness. HISTORY OF PRESENT ILLNESS: Ms. Zavala is a 72-year-old female with a past medical history of recent admission to our hospital who was discharged on after presenting with lethargy and weakness, found to have anemia. It was suspected at that time that her lethargy and weakness were secondary to her medications; at that time Nucynta and Lyrica were held. The patient presented today with concern for weakness and altered mental status. Her states that she has not been well since returning home from the hospital. He describes her as being weak but able to get around in the home. He did not note any issues with her mentation. However, today she was even weaker than usual. After taking a nap he states that she was quite confused and unable to get up off the couch. He did not note any focal weakness but states that she seemed "out of it." In the emergency room, Ms. Zavala's labs were essentially unremarkable. Her white blood cell count is normal. She has no other abnormalities except for mildly low potassium. Her vital signs are stable. She is febrile with a temperature just up to 100.9. However, she was noted to have a large circular area of erythema with blistering to her left outer thigh with induration concerning for possible abscess. Her UA is pending. Her chest x-ray is normal. She had a brain CT that showed no acute abnormality. On review with her , he does note that she has had what she thought was a bug or spider bite to the left thigh for over two weeks. Up until the past 24 hours or so it was not particularly erythematous though his did complain that it hurt significantly. He notes that she is out of doors often doing small things and tending her garden but she has not noted any tick bites. PAST MEDICAL HISTORY: 1. Type 2 diabetes, insulin dependent. 2. Hypothyroidism. 3. History of CHF, on diuretic therapy chronically. 4. Hypertension. 5. Osteoporosis. 6. Diverticulosis. 7. Hyperlipidemia. 8. Chronic cervicalgia. 9. Depression. 10. History of current tobacco abuse. PAST SURGICAL HISTORY: 1. Status post cholecystectomy. 2. Status post cervical diskectomy and fusion x2. MEDICATIONS: The patient is not able to confirm medication list and the is not at the bedside. However, from the discharge summary from , she was discharged on: 1. Lyrica 75 mg in the morning, 150 mg at night. 2. Effexor 37.5 mg p.o. daily. 3. Amlodipine 2.5 mg p.o. daily. 4. Metformin 1000 mg p.o. daily. 5. Vitamin B12 1000 mcg p.o. daily. 6. Ferrous sulfate 1 tab by mouth every other day. 7. Lasix 20 mg p.o. daily. 8. NovoLog insulin per sliding scale. 9. Lantus 10 units subcutaneously twice daily. 10. Imdur 30 mg p.o. by mouth daily. 11. Synthroid 100 mcg by mouth daily. 12. Metolazone 2.5 mg by mouth daily as needed for swelling. ALLERGIES: ROSIGLITAZONE, C1 PIGMENT BLUE 63, and DULOXETINE. FAMILY HISTORY: Per the report from previous hospitalization, the patient's sister had coronary artery disease and hypertension. The patient's brother passed at 71 from an AL. The patient's father had CHF and passed at age 70. The patient's mother had a history of AL and valvular heart disease, passed at 82. SOCIAL HISTORY: Per the report from last hospitalization, the patient was a current half pack a day smoker. She smoked for 50 years. Her was the healthcare proxy. There is no report of alcohol or drug use. REVIEW OF SYSTEMS: Unobtainable. PHYSICAL EXAMINATION GENERAL: Ms. Zavala is lying in the bed. She does not appear in any acute distress. VITAL SIGNS: Temperature 100.9, heart rate 85, respiratory rate 16, O2 saturation 94% on room air, blood pressure 146/98. LUNGS: Clear to auscultation bilaterally with no accessory muscle use and good aeration. HEART: S1, S2. No murmur, rub, or gallop. Regular rate and rhythm. ABDOMEN: Soft and nontender with bowel sounds positive x4. EXTREMITIES: No cyanosis or edema. NEURO: She opens her eyes to voice. She does not seem to want to interact with me, but she does interact with her sister at the bedside. She opens her eyes to voice to her. She was noted to be observed to squeeze her hands on both sides. She stated that she was in the hospital when I went behind directly afterwards to perform the same examination the patient would not interact with me. 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 Her face is symmetrical. Again, I have only noted her to hear to say one word. She does open her eyes. Her pupils are equal and reactive. SKIN: Intact. There is a large area of erythema noted to her left upper thigh in the medial aspect. It has an inner circular area, darker redness. There are blisters to the central aspect and it is firm and indurated. DIAGNOSTIC STUDIES/LAB DATA: Sodium 135, potassium 3.1, chloride 101, serum bicarbonate 28, BUN 7, creatinine 1.02, glucose 146, lactic acid 1.7. Troponin 0.01. INR 1.02. WBC 8.2, hemoglobin 9.5, hematocrit 29, platelet count 97. Chest x-ray shows no acute intrathoracic process. Brain CT shows no acute intracranial process. ASSESSMENT: Ms. Zavala is a 72-year-old female with a past medical history of diabetes, hypothyroidism, and chronic pain as well as depression who presents to the hospital with weakness and altered mental status. Our plans are for inpatient admission to the hospital as I expect her length of stay to be greater than 2 days for the followin. Altered mental status and weakness. It is not clear entirely what started Ms. Zavala's presentation today. It is interesting that she would not interact with me, but did seem to interact much more appropriately with her sister. I questioned whether or not she has an encephalopathy. I initially thought perhaps this was related to medication use as it had been thought during her hospitalization when Nucynta had been held and Lyrica had been decreased. Plan to continue to hold all psychoactive medicatons. She has had a CT of the brain , which is negative. I do not see any focal neurological deficit, but again she is not consistently interactive enough to fully exam. Overall, she seems more encephalopathic on examination and I question whether or not this was related to early sepsis. She does have a low-grade temperature and she has this very concerning area of erythema with induration on her left thigh. Plan is for now to treat for skin infection. Also plan to perform straight catheterization if needed for urine as the urinalysis has not been obtained yet. Blood cultures will also be sent. Further care will be based on clinical course. 2. Rash: The patient's leg has a significant area of erythema. There is concern perhaps this was a bug bite. It appears to have an abscess at this point. Plan is for an ultrasound now to assess that further, The character of the erythema is concerning for a possible Lyme disease She will be covered with doxycycline and lyme serology will be sent We will also cover with clindamycin as I am also concerned for Staph or Strep, possibly with common skin pathogens. 3. Type 2 diabetes. Plan to hold her Lantus and metformin. She will have lispro sliding scale as needed only. 4. History of congestive heart failure. Plan to hold her diuretics in the setting of acute illness. 5. Hypothyroidism. We will continue with levothyroxine as she is able to swallow or we can transition her to IV. 6. Hypertension. Plan to hold amlodipine during her acute illness as well as her isosorbide. 7. DVT prophylaxis with heparin subcu. 8. Disposition to medical floor. TIME SPENT: Approximately 75 minutes were spent on the admission of this patient, more than half the time was spent with the patient at the bedside reviewing the events leading up to this hospitalization, performing the physical examination, and reviewing the plan of care. TAMICA ADAMES NP [id number]/[facility] #: [id number] ALEXIS
[2017-04-22 05:47] LABS: Hematocrit 34 % (35-47); Mean Corpuscular HGB Conc 33 g/dl (31-36); Mean Corpuscular Hemoglobin 30 pg (27-31); Mean Corpuscular Volume 92 fL (80-97); Mean Platelet Volume 8 um3 (7.4-10.4); Red Blood Count 3.66 10^6/ul (4.0-5.4); Red Cell Distribution Width 17 % (10.5-15); White Blood Count 9.5 10^3/ul (3.5-10.8)
[2017-04-22 05:49] LABS: Add Diff/Slide Review? Slide Review Added; Comments Flag Yes
[2017-04-22 06:03] LABS: BUN/Creatinine Ratio 8.6 (8-20); Calcium 9.8 mg/dL (8.6-10.3); EGFR African American 76.7 (>60); EGFR Non-African American 59.6 (>60); Potassium 3.2 mmol/L (3.5-5.0)
[2017-04-22] MEDS: Levothyroxine TAB* 100 MCG TAB PO SCH (07:19)
[2017-04-22 07:55] LABS: Urine Bilirubin Negative (Negative); Urine Glucose 2+(150 mg/dL) (Negative); Urine Nitrite Negative (Negative)
[2017-04-22] MEDS: Insulin LISPRO* 1 UNITS UNIT SUBCUT SCH ×3 (08:16→17:36)
[2017-04-22] MEDS ORDERED: Potassium Chlor TAB* 20 MEQ TAB.ER PO ONE (16:44)
--- NOTE | 2017-04-22 18:09 | PN ---
Subjective Date of Service: 04/22/17 Interval History: Pt is feeling better. She has less pain in her leg. She feels much more mental sharp. Objective Active Medications: Acetaminophen (Tylenol Supp*) 650 mg TN Q6H PRN PRN Reason: FEVER Last Admin: 04/21/17 23:36 Dose: 650 mg Dextrose (D50w Syringe 50 Ml*) 12.5 gm IV PUSH .FOR FS < 60 - SS PRN PRN Reason: FS < 60 Heparin Sodium (Porcine) (Heparin Vial(*)) 5,000 units SUBCUT Q8HR [facility] Last Admin: 04/22/17 12:54 Dose: 5,000 units Doxycycline Hyclate 100 mg/ (Sodium Chloride) 250 mls @ 250 mls/hr IVPB Q12H [facility] Last Admin: 04/22/17 12:54 Dose: 250 mls/hr Insulin Human Lispro (Humalog*) 0 units SUBCUT AC [facility] PRN Reason: Protocol Last Admin: 04/22/17 17:36 Dose: 4 units Levothyroxine Sodium (Synthroid Tab*) 100 mcg PO DAILY@0600 [facility] Last Admin: 04/22/17 07:19 Dose: Not Given Vital Signs 04/21/17 04/21/17 04/21/17 22:00 22:39 22:45 Temperature Pulse Rate Respiratory 18 20 Rate Blood Pressure 161/62 145/60 (mmHg) O2 Sat by Pulse Oximetry 04/21/17 04/21/17 04/22/17 23:00 23:30 05:04 Temperature 102.2 F 98.5 F Pulse Rate 78 81 77 Respiratory 20 20 18 Rate Blood Pressure 158/57 152/64 (mmHg) O2 Sat by Pulse 99 99 99 Oximetry 04/22/17 04/22/17 04/22/17 07:51 07:54 08:23 Temperature 100.5 F Pulse Rate 84 Respiratory 17 18 Rate Blood Pressure 174/68 172/57 (mmHg) O2 Sat by Pulse 98 98 Oximetry 04/22/17 04/22/17 11:50 15:24 Temperature 100.2 F 99.5 F Pulse Rate 89 88 Respiratory 16 18 Rate Blood Pressure 173/60 181/63 (mmHg) O2 Sat by Pulse 98 94 Oximetry Appearance: Elderly female lying in bed, NAD Eyes: No Scleral Icterus Ears/Nose/Mouth/Throat: Mucous Membranes Moist Respiratory: Symmetrical Chest Expansion and Respiratory Effort, Clear to Auscultation Cardiovascular: NL Sounds; No Murmurs; No JVD, RRR, No Edema Abdominal: NL Sounds; No Tenderness; No Distention Extremities: No Clubbing, Cyanosis Skin: - - Large erythema migrans rash left lateral thigh Neurological: Alert and Oriented x 3 Result Diagrams: 04/22/17 05:39 04/22/17 05:39 Assess/Plan/Problems-Billing Ms Zavala is a 72 yo F who has a h/o type II DM, HTN, hypothyroidism and depression who presented to the ER with c/o altered mental status. - Patient Problems (1) Lyme disease Current Visit: Yes Status: Acute Code(s): A69.20 - LYME DISEASE, UNSPECIFIED SNOMED Code(s): 07184102 Comment: The patient has an erythema migrans rash on the L lateral thigh. Continue doxycycline. I discussed with the patient if the rash does not improve she can follow up with Dr. Anna as an outpatient. (2) Altered mental status Current Visit: Yes Status: Acute Code(s): R41.82 - ALTERED MENTAL STATUS, UNSPECIFIED SNOMED Code(s): 803511991 Comment: Likely secondary to infection in the setting of being on lyrica. Her mental status is much improved. (3) Diabetes Current Visit: Yes Status: Chronic Code(s): E11.9 - TYPE 2 DIABETES MELLITUS WITHOUT COMPLICATIONS SNOMED Code(s): 99352077 Comment: Resume home medication regimen. (4) HTN (hypertension) Current Visit: Yes Status: Chronic Code(s): I10 - ESSENTIAL (PRIMARY) HYPERTENSION SNOMED Code(s): 05303257 Comment: BP is elevated but she has not been on her home meds. (5) Hypothyroidism Current Visit: Yes Status: Chronic Code(s): E03.9 - HYPOTHYROIDISM, UNSPECIFIED SNOMED Code(s): 77791226 Comment: Continue home synthroid dose of 100 mcg daily. (6) Depression Current Visit: Yes Status: Chronic Code(s): F32.9 - MAJOR DEPRESSIVE DISORDER, SINGLE EPISODE, UNSPECIFIED SNOMED Code(s): 01458023 Comment: Continue effexor. (7) DVT prophylaxis Current Visit: Yes Status: Acute Code(s): UAI9951 - SNOMED Code(s): 171050896 Comment: SQ heparin (8) Full code status Current Visit: Yes Status: Acute Code(s): Z78.9 - OTHER SPECIFIED HEALTH STATUS SNOMED Code(s): 261830569
[2017-04-22] MEDS ORDERED: oxyCODONE TAB* 5 MG TAB PO PRN (20:34)
[2017-04-22] MEDS ORDERED: Senna TAB PO PRN (20:34)
[2017-04-22] MEDS ORDERED: Docusate CAP* 100 MG PO PRN (20:34)
[2017-04-23] MEDS: DOXYcycline IV* 100 MG in NS 0.9% 250 ML* 250 ML IVPB SCH ×2 (00:51→16:20)
[2017-04-23 01:00] VITALS: BP 176/71
[2017-04-23] MEDS: Levothyroxine TAB* 100 MCG TAB PO SCH (07:20)
[2017-04-23] MEDS: Heparin VIAL(*) 5000 UNITS/ML VIAL (FIVE THOUSAND) SUBCUT SCH ×2 (07:20→14:14)
[2017-04-23] MEDS: Insulin LISPRO* 1 UNITS UNIT SUBCUT SCH ×2 (08:47→13:06)
[2017-04-23] MEDS ORDERED: DOXYcycline CAP(*) 100 MG PO SCH (14:54)
--- NOTE | 2017-04-23 15:31 | PN ---
Subjective Date of Service: 04/23/17 Interval History: Pt states she is feeling better again today. She is interested in going home. She states she has less pain in her leg today. Objective Active Medications: Acetaminophen (Tylenol Supp*) 650 mg KS Q6H PRN PRN Reason: FEVER Last Admin: 04/21/17 23:36 Dose: 650 mg Dextrose (D50w Syringe 50 Ml*) 12.5 gm IV PUSH .FOR FS < 60 - SS PRN PRN Reason: FS < 60 Docusate Sodium (Colace Cap*) 100 mg PO BID PRN PRN Reason: CONSTIPATION Doxycycline Hyclate (Vibramycin Cap(*)) 100 mg PO BID ERICH Furosemide (Lasix Tab*) 20 mg PO DAILY [facility] Heparin Sodium (Porcine) (Heparin Vial(*)) 5,000 units SUBCUT Q8HR [facility] Last Admin: 04/23/17 14:14 Dose: 5,000 units Insulin Glargine (Lantus(*)) 40 units SUBCUT BID [facility] Insulin Human Lispro (Humalog*) 0 units SUBCUT AC [facility] PRN Reason: Protocol Last Admin: 04/23/17 13:06 Dose: 10 units Isosorbide Mononitrate (Imdur Er Tab*) 30 mg PO DAILY [facility] Levothyroxine Sodium (Synthroid Tab*) 100 mcg PO DAILY@0600 [facility] Last Admin: 04/23/17 07:20 Dose: 100 mcg Metformin HCl (Glucophage*) 1,000 mg PO BEDTIME [facility] Oxycodone HCl (Roxycodone Tab*) 5 mg PO Q4H PRN PRN Reason: PAIN Pregabalin (Lyrica Cap(*)) 150 mg PO QAM [facility] Pregabalin (Lyrica Cap(*)) 300 mg PO QPM [facility] Senna (Senokot Tab*) 2 tab PO BEDTIME PRN PRN Reason: CONSTIPATION Venlafaxine HCl (Effexor Xr Cap*) 37.5 mg PO DAILY [facility] Vital Signs 04/22/17 04/22/17 04/22/17 19:43 20:00 23:33 Temperature 98.9 F 98.8 F Pulse Rate 89 90 Respiratory 16 20 17 Rate Blood Pressure 162/57 176/71 (mmHg) O2 Sat by Pulse 95 95 95 Oximetry 04/23/17 08:00 Temperature Pulse Rate Respiratory 18 Rate Blood Pressure (mmHg) O2 Sat by Pulse 95 Oximetry Oxygen Devices in Use Now: None Appearance: Elderly female lying in bed, NAD Eyes: No Scleral Icterus Ears/Nose/Mouth/Throat: Mucous Membranes Moist Respiratory: Symmetrical Chest Expansion and Respiratory Effort, Clear to Auscultation Cardiovascular: NL Sounds; No Murmurs; No JVD, RRR, No Edema Abdominal: NL Sounds; No Tenderness; No Distention Skin: - - erythema migrans left lateral thigh (slightly less red today) Neurological: Alert and Oriented x 3 Result Diagrams: 04/22/17 05:39 04/22/17 05:39 Microbiology and Other Data: Microbiology 04/22/17 06:45 Aerobic Blood Culture - Preliminary Blood Venous No Growth Day 1 Anaerobic Blood Culture - Preliminary No Growth Day 1 04/22/17 05:39 Aerobic Blood Culture - Preliminary Blood Venous No Growth Day 1 Anaerobic Blood Culture - Preliminary No Growth Day 1 Assess/Plan/Problems-Billing Ms Zavala is a 72 yo F who has a h/o type II DM, HTN, hypothyroidism and depression who presented to the ER with c/o altered mental status. - Patient Problems (1) Lyme disease Current Visit: Yes Status: Acute Code(s): A69.20 - LYME DISEASE, UNSPECIFIED SNOMED Code(s): 11257634 Comment: The patient has an erythema migrans rash on the L lateral thigh. Will treat with 10 more days of doxycycline. Dr. Anna saw the patient today- follow up as an outpatient if needed. (2) Altered mental status Current Visit: Yes Status: Acute Code(s): R41.82 - ALTERED MENTAL STATUS, UNSPECIFIED SNOMED Code(s): 486915407 Comment: Likely secondary to infection in the setting of being on lyrica. Resolved. (3) Diabetes Current Visit: Yes Status: Chronic Code(s): E11.9 - TYPE 2 DIABETES MELLITUS WITHOUT COMPLICATIONS SNOMED Code(s): 15709613 Comment: Resume home medication regimen. (4) HTN (hypertension) Current Visit: Yes Status: Chronic Code(s): I10 - ESSENTIAL (PRIMARY) HYPERTENSION SNOMED Code(s): 38420011 Comment: BP is elevated but she has not been on her home meds. Resume home meds. (5) Hypothyroidism Current Visit: Yes Status: Chronic Code(s): E03.9 - HYPOTHYROIDISM, UNSPECIFIED SNOMED Code(s): 71756579 Comment: Continue home synthroid dose of 100 mcg daily. (6) Depression Current Visit: Yes Status: Chronic Code(s): F32.9 - MAJOR DEPRESSIVE DISORDER, SINGLE EPISODE, UNSPECIFIED SNOMED Code(s): 22227014 Comment: Continue effexor. (7) DVT prophylaxis Current Visit: Yes Status: Acute Code(s): JPZ1624 - SNOMED Code(s): 291896041 Comment: SQ heparin (8) Full code status Current Visit: Yes Status: Acute Code(s): Z78.9 - OTHER SPECIFIED HEALTH STATUS SNOMED Code(s): 452009178
[2017-04-23] MEDS ORDERED: Isosorbide Mononitrate ER TAB* 30 MG PO SCH (15:33)
[2017-04-23] MEDS ORDERED: amLODIPine TAB* 5 MG PO SCH (16:00)
[2017-04-23] MEDS ORDERED: Pregabalin CAP(*) 100 MG PO SCH (18:00)
[2017-04-23] MEDS ORDERED: Insulin GLARGINE(*) 1 UNITS UNIT SUBCUT SCH (21:00)
[2017-04-23] MEDS ORDERED: metFORMIN* 1,000 MG TAB PO SCH (21:00)
--- NOTE | 2017-04-24 04:58 | DS ---
CC: Dr. Jenn Tan* DISCHARGE SUMMARY: DATE OF ADMISSION: 04/21/17 DATE OF DISCHARGE: 04/23/17 PRIMARY CARE PROVIDER: Dr. Tan. PRINCIPAL DIAGNOSIS: Probable Lyme disease with erythema migrans of the left lateral thigh. SECONDARY DIAGNOSES: 1. Altered mental status - resolved. 2. Type 2 diabetes. 3. Hypothyroidism. 4. Hypertension. 5. Hyperlipidemia. 6. Depression. DISCHARGE MEDICATIONS: 1. Lantus 40 units subcutaneous twice daily. 2. NovoLog via sliding scale. 3. Metolazone 2.5 mg p.o. daily p.r.n. swelling. 4. Imdur 30 mg p.o. daily. 5. Metformin 1000 mg p.o. q.h.s. 6. Lyrica 300 mg p.o. q.p.m., 150 mg p.o. q.a.m. 7. Ferrous sulfate 325 mg p.o. every other day. 8. Vitamin B12 1000 mcg p.o. daily. 9. Lasix 20 mg p.o. daily. 10. Synthroid 100 mcg p.o. daily. 11. Amlodipine 2.5 mg p.o. daily. 12. Venlafaxine 37.5 mg p.o. daily. 13. Doxycycline 100 mg p.o. twice daily x10 days. HOSPITAL COURSE: Ms. Zavala is a 72-year-old female who presented to the emergency room on 04/21/17 with confusion and weakness. The patient had been recently discharged from the hospital on 04/01/17 after presenting with lethargy and weakness and, at that time, it was felt that her symptoms were related to medications. The patient re-presented with similar symptoms. However, she also noted that she had an area of redness and induration to the left lateral thigh. The patient was found to be febrile to 100.9 on initial presentation to the emergency room. Because of this, she was started on both clindamycin and doxycycline. The day after admission, it was clear that the patient had what appears to be erythema migrans on the left lateral thigh. The clindamycin was discontinued and the patient was continued on doxycycline. The patient has since been afebrile. The patient does note pain in the left lateral thigh; however, she states it is better now than it was initially. The patient's confusion and weakness are much improved by the day of discharge. She has been up and ambulating in the [place] without any difficulty. Dr. Anna confirmed the erythema migrans rash on exam today; however, did not formerly see the patient in consultation. The patient has, however, been given his phone number to follow up him if she has any concerns or if the erythema migrans rash does not improve. The patient's chronic medical conditions were not being treated during the course of hospitalization as her home medication reconciliation was not completed. At this point, it is now done and she has been resumed on her usual medications. The patient will need to follow up with her primary care provider for further adjustments in her home medication regimen. FOLLOWUP CONCERNS: The patient is being discharged to home today, 04/23/17. She is to follow up with Dr. Tan in the next 4 to [address] Anna in the next 1 to 2 weeks as needed. ACTIVITY LEVEL: As tolerated. DIET: Diabetic. CONDITION ON DISCHARGE: Stable. TIME SPENT: 35 minutes were spent discharging this patient. [id number]/[facility] #: [id number] MTDD
[2017-04-24] MEDS ORDERED: Venlafaxine EXT RELEASE CAP* 37.5 MG PO SCH (09:00)
[2017-04-24] MEDS ORDERED: Isosorbide Mononitrate ER TAB* 30 MG PO SCH (09:00)
[2017-04-24] MEDS ORDERED: Pregabalin CAP(*) 50 MG PO SCH (09:00)
[2017-04-24] MEDS ORDERED: Furosemide TAB* 20 MG PO SCH (09:00)
== END 2017-04-23 14:35 | disposition home or self-care (01) | DRG 867 ==
LOC: ED 19:31 → MED 21:52
PROVIDERS: ADMIT Pediatrics; ATTEND Hospitalist
DX: A69.20 Lyme disease, unspecified (principal); G93.40 Encephalopathy, unspecified; E11.9 Type 2 diabetes mellitus without complications; I11.0 Hypertensive heart disease with heart failure; I50.9 Heart failure, unspecified; R41.82 Altered mental status, unspecified; E03.9 Hypothyroidism, unspecified; E78.5 Hyperlipidemia, unspecified; F32.9 Major depressive disorder, single episode, unspecified; F17.210 Nicotine dependence, cigarettes, uncomplicated; Z79.84 Long term (current) use of oral hypoglycemic drugs; Z79.4 Long term (current) use of insulin; Z79.899 Other long term (current) drug therapy; Z91.02 Food additives allergy status; Z88.8 Allergy status to other drugs, medicaments and biological substances; Z91.048 Other nonmedicinal substance allergy status; Z82.49 Family history of ischemic heart disease and other diseases of the circulatory system
CPT/HCPCS: 36415; 70450; 71010; 80048; 80053; 80061; 81003; 81015; 83605; 84484; 85025; 85060; 85610; 85730; 86140; 86618; 86850; 86900; 86901; 87040; 93005; 99406; A9270-GY; J1644

== ENCOUNTER 2018-04-30 11:10 | Inpatient (IN) | payer MEDICARE, BC ==
--- NOTE | 2018-04-30 11:27 | ED ---
Abdominal Pain/Female - HPI Summary HPI Summary: 73 y/o female presents to the ED c/o sudden onset, severe ABD pain starting at 02:00 this morning. Woke pt up from sleep. Associated sx: nausea, burning with urination in the last couple of days. Pain across the mid ABD, mostly in the RUQ. No difficulty with BM. Denies decrease in appetite. Pain aggravated and radiates with movement. Sx gallbladder removal. - History of Current Complaint Chief Complaint: EDAbdPain Stated Complaint: ABD PAIN Time Seen by Provider: 04/30/18 11:20 Hx Obtained From: Patient Onset/Duration: Sudden Onset, Lasting Hours Pain Intensity: 8 Pain Scale Used: 0-10 Numeric Location: Discrete At: RUQ Radiates: Yes Radiates to: Other - across ABD Aggravating Factor(s): Movement Associated Signs and Symptoms: Positive: Urinary Symptoms - burning, Nausea Allergies/Adverse Reactions: Allergies Allergy/AdvReac Type Severity Reaction Status Date / Time duloxetine [From Cymbalta] Allergy Hallucinati Verified 04/30/18 11:16 ons rosiglitazone [From Avandia] Allergy Unknown Verified 04/30/18 11:16 Reaction Details Home Medications: Home Medications Venlafaxine EXT RELEASE CAP* [Effexor Xr CAP*] 75 mg PO DAILY 04/30/18 [History Confirmed 04/30/18] PMH/Surg Hx/FS Hx/Imm Hx Previously Healthy: No Endocrine/Hematology History: Reports: Hx Diabetes, Hx Thyroid Disease - hypothyroid, Hx Anemia Denies: Hx Systemic Lupus Erythematosus Cardiovascular History: Reports: Hx Congestive Heart Failure, Hx Hypercholesterolemia, Hx Hypertension, Other Cardiovascular Problems/Disorders Denies: Hx Angina, Hx Coronary Artery Disease, Hx Myocardial Infarction, Hx Pacemaker/ICD, Hx Valvular Heart Disease Respiratory History: Reports: Other Respiratory Problems/Disorders - CHF 03/08/15 Denies: Hx Asthma, Hx Chronic Obstructive Pulmonary Disease (COPD) GI History: Reports: Hx Diverticulosis, Other GI Disorders History: Reports: Hx Dialysis, Other Problems/Disorders - "impaired kidneys" Denies: Hx Renal Disease Musculoskeletal History: Reports: Hx Fibromyalgia, Hx Orthopedic Injury - neck injury, Hx Scoliosis, Other Musculoskeletal History - upper body pain Denies: Hx Rheumatoid Arthritis Sensory History: Reports: Hx Contacts or Glasses Denies: Hx Hearing Aid Opthamlomology History: Reports: Hx Contacts or Glasses Psychiatric History: Reports: Hx Depression Denies: Hx Panic Disorder - Cancer History Hx Chemotherapy: No - Surgical History Surgery Procedure, Year, and Place: neck diskectomy with fusion 1997 and 2006,. CHOLECYSTECTOMY. 12/2017 - intestinal polyps removed Hx Anesthesia Reactions: No Infectious Disease History: No Infectious Disease History: Denies: Traveled Outside the [place] in Last 30 Days - Family History Known Family History: Positive: Cardiac Disease - Social History Alcohol Use: None Hx Substance Use: No Substance Use Type: Reports: None Substance Use Comment - Amount & Last Used: nucynta Hx Tobacco Use: Yes Smoking Status (MU): Former Smoker Type: Cigarettes Amount Used/How Often: 6-7 cigarettes/day Have You Smoked in the Last Year: Yes Review of Systems Constitutional: Negative Eyes: Negative ENT: Negative Cardiovascular: Negative Respiratory: Negative Positive: Abdominal Pain, Nausea Positive: burning Musculoskeletal: Negative Skin: Negative Neurological: Negative Psychological: Normal All Other Systems Reviewed And Are Negative: Yes Physical Exam - Summary Physical Exam Summary: Appearance: Well-appearing, Well-nourished Skin: Warm Eyes: Normal ENT: Normal Neck: Supple, nontender Respiratory: Clear to auscultation Cardiovascular: Regular rate, regular rhythm. 2/5 systolic murmur in the left intercostal space. Abdomen: Moderate tenderness over RUQ. Mild rebound, no guarding. Negative tenderness over McBurney's Point. Musculoskeletal: Normal, Strength/ROM Intact Neurological: Normal, A&Ox3 Psychiatric: Normal General: No acute distress Triage Information Reviewed: Yes Vital Signs On Initial Exam: Initial Vitals Temp Pulse Resp BP Pulse Ox 97.9 F 77 18 180/79 93 04/30/18 11:10 04/30/18 11:10 04/30/18 11:10 04/30/18 11:10 04/30/18 11:10 Vital Signs Reviewed: Yes Diagnostics - Vital Signs Vital Signs Temp Pulse Resp BP Pulse Ox 04/30/18 11:10 97.9 F 77 18 180/79 93 - Laboratory Result Diagrams: 04/30/18 11:33 04/30/18 11:33 Lab Statement: Any lab studies that have been ordered have been reviewed, and results considered in the medical decision making process. - CT ABD/PEL CT CT Interpretation: Positive (See Comments) - 1. Acute diverticulitis right colon at the hepatic flexure. 2. Cirrhotic liver morphology with findings of portal hypertension. 3. Mild splenomegaly. 4. Prominent gastric varices CT Interpretation Completed By: Radiologist Re-Evaluation - Re-Evaluation 1 Re-Evaluation Time: 13:30 Comment: Review test results, plan to admit Abdominal Pain Fem Course/Dx - Course Course Of Treatment: CT abd and pelvis positive for diverticulitis over hepatic flexture, IV zosyn and cefepime initiated, admitted under hospitalist - Diagnoses Provider Diagnoses: Diverticulitis - Provider Notifications Discussed Care Of Patient With: Lillian Spears Time Discussed With Above Provider: 13:11 Instructed by Provider To: Admit As Inpatient Discharge - Sign-Out/Discharge Documenting (check all that apply): Patient Departure - Discharge Plan Condition: Stable Disposition: ADMITTED TO [facility] - Billing Disposition and Condition Condition: STABLE Disposition: Admitted to [facility]
[2018-04-30 11:46] LABS: Hematocrit 36 % (35-47); Hemoglobin 12.6 g/dl (12.0-16.0); Mean Corpuscular HGB Conc 35 g/dl (31-36); Mean Corpuscular Hemoglobin 31 pg (27-31); Mean Corpuscular Volume 89 fL (80-97); Mean Platelet Volume 7.6 um3 (7.4-10.4); Platelet Count 93 10^3/ul (150-450); Red Blood Count 4.08 10^6/ul (4.00-5.40); Red Cell Distribution Width 14 % (10.5-15); White Blood Count 7.6 10^3/ul (3.5-10.8)
[2018-04-30 12:03] LABS: EGFR Non-African American 58.7 (>60)
[2018-04-30 12:13] LABS: ABS Basophils 0 10^3/ul (0-0.2); ABS Eosinophils 0.1 10^3/ul (0-0.6); ABS Lymphocytes 1.2 10^3/ul (1.0-4.8); ABS Monocytes 0.7 10^3/ul (0-0.8); ABS Neutrophils 5.6 10^3/ul (1.5-7.7); ABS Nucleated RBC 0 10^3/ul; Eosinophil % 1.1 % (0-6); Lymphocyte % 15.3 % (25-47); Nucleated Red Blood Cells % 0
[2018-04-30] MEDS ORDERED: Iodixanol* (CONTRAST) 320 MG/ML 100 ML SDV IV ONE (12:16)
--- NOTE | 2018-04-30 12:55 | RAD ---
INDICATION: Abdominal pain COMPARISON: CT abdomen pelvis November 23, 2015 TECHNIQUE: Axial source images were obtained from the hemidiaphragms to the symphysis pubis following administration of intravenous contrast only as requested by the ED physician. 100 mL of Visipaque 320 was utilized Coronal and sagittal reconstructed images were acquired. Lung bases: The lung bases are clear. Liver: There is cirrhotic liver morphology. The appearance unchanged. There is a subcentimeter left hepatic lobe cyst. There are several small right hepatic cysts largest of which is in the inferior right hepatic lobe and measures 1.1 cm. Gallbladder: Cholecystectomy. Spleen: The spleen is borderline enlarged. There are no focal masses. Pancreas: There is no focal pancreatic mass or ductal dilatation. Adrenal glands: There is no evidence of adrenal mass. Kidneys: The kidneys are normal in size and position. There are prompt nephrograms and there is prompt excretion bilaterally. There are no renal parenchymal masses. There is no evidence of nephrolithiasis. Adenopathy: There is no evidence of adenopathy by size criteria. Fluid collections: There are no free or localized fluid collections. Vessels:There are atherosclerotic changes involving the aorta and iliac vessels. There is no focal aneurysm. The IVC appears normal. There are prominent gastric varices GI tract: The upper GI tract is unremarkable. There are moderate diverticula throughout the: With findings of acute diverticulitis with perienteric stranding at the level of the hepatic flexure. There are no findings of obstruction or perforation Pelvic organs: The uterus and adnexa appear normal Bladder: There are no bladder masses. Abdominal and pelvic soft tissues: There is diastases of the rectus abdominis musculature. Osseous structures: There are no acute osseous findings. Other: None IMPRESSION: 1. Acute diverticulitis right colon at the hepatic flexure. 2. Cirrhotic liver morphology with findings of portal hypertension. 3. Mild splenomegaly. 4. Prominent gastric varices
[2018-04-30] MEDS ORDERED: Piperacillin/Tazobac ADVAN(*) 3.375 GM in NS 0.9% 100 ML* 100 ML IVPB ONE ×2 (13:08→13:23)
[2018-04-30] MEDS ORDERED: Cefepime(*) 1 GM in NS 0.9% 50 ML* 50 ML IVPB ONE (13:09)
[2018-04-30] MEDS ORDERED: NS 0.9% 1000 ML* 1,000 ML IV SCH (13:15)
[2018-04-30] MEDS ORDERED: Morphine VIAL* 4 MG/ML VIAL (1 ml vial) IV PRN ×2 (13:18→13:56)
[2018-04-30] MEDS ORDERED: Magnesium Hydroxide LIQ* 30 ML UDC PO PRN (13:18)
[2018-04-30] MEDS ORDERED: Acetaminophen TAB* 325 MG PO PRN (13:18)
[2018-04-30] MEDS ORDERED: Dextrose 50% Syringe 50 ML* 25 GM/50 ML SYRINGE IV PUSH PRN (13:22)
[2018-04-30 13:25] LABS: Urine Appearance Clear; Urine Blood Negative (Negative); Urine Color Yellow; Urine Ketones Negative (Negative); Urine Protein 2+(100 mg/dL) (Negative); Urine Red Blood Cell Trace(0-2/hpf) (Absent); Urine Specific Gravity 1.043 (1.010-1.030); Urine Urobilinogen Negative (Negative); Urine White Blood Cell Trace(0-5/hpf) (Absent)
[2018-04-30] MEDS ORDERED: Zosyn per Pharmacy* NOTE FOLLOW UP SCH (14:00)
[2018-04-30] MEDS ORDERED: Insulin GLARGINE(*) 1 UNITS UNIT SUBCUT SCH (14:00)
[2018-04-30] MEDS: Heparin VIAL(*) 5000 UNITS/ML VIAL (FIVE THOUSAND) SUBCUT SCH ×2 (16:05→20:53)
[2018-04-30] MEDS: Baclofen TAB* 10 MG PO SCH ×2 (16:05→20:54)
[2018-04-30] MEDS: NS 0.9% 1000 ML* 1,000 ML IV SCH (16:24)
[2018-04-30] MEDS: KCL 20 MEQ/100 ML IVPREMIX* 20 MEQ/100 ML BAG IV SCH ×2 (16:25→18:31)
[2018-04-30] MEDS: ZOSYN 3.375 GM Q8H per EXTENDED INFUSION IVPB SCH ×2 (16:25)
[2018-04-30] MEDS: Pregabalin CAP(*) 100 MG PO SCH (16:30)
--- NOTE | 2018-04-30 16:52 | HP ---
CC: Dr. Jenn Tan; Dr. Izquierdo * HISTORY AND PHYSICAL: DATE OF ADMISSION: 04/30/18 PRIMARY CARE PROVIDER: Dr. Jenn Tan. CHIEF COMPLAINT: Abdominal pain. HISTORY OF PRESENT ILLNESS: Csaandra Zavala is a 73-year-old female with history of chronic pain due to C-spine injury at work years ago who presented to the hospital complaining of sudden onset of right-sided abdominal pain that occurred in the early day of morning on 04/30/18. The patient's CT showed diverticulitis. She is going to be placed on overnight observation. The patient stated that her pain medication that she received made her "groggy." At this point, I did not find any narcotics that were documented that were given to this patient during her ER stay. Nevertheless, the information obtained from the patient is limited due to her seeing sedated. PAST MEDICAL HISTORY: 1. History of chronic back pain due to C-spine injury at work, subsequent fusion in 1997 and redo of her C-spine surgery in 2006. She has chronic pain syndrome and she lost to see Dr. Downey. 2. History of depression. 3. History of hypertension. 4. History of diabetes type 2. 5. History of hypothyroidism. 6. Dyslipidemia. 7. Status post cholecystectomy. 8. History of cardiac catheterization in 2014 that showed no abnormalities. 9. History of appendectomy. 10. History documented in Dr. Izquierdo's notes in 2017 of liver cirrhosis, but no etiology noted. MEDICATIONS AT HOME: Include: 1. Imdur 30 mg daily. 2. Insulin glargine 30 units every 12 hours. 3. Insulin NovoLog sliding scale. 4. Baclofen 10 mg 3 times a day. 5. Effexor XR 75 mg daily. 6. Lyrica 300 mg q.p.m., 150 mg q.a.m. 7. Levothyroxine 100 mcg daily. 8. Amlodipine 2.5 mg daily. 9. Furosemide 20 mg daily. ALLERGIES: Include DULOXETINE and ROSIGLITAZONE. FAMILY HISTORY: Positive for mother with history of heart disease and diabetes who at age of 82. Father with history of CHF, at the age of 70. 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 There is no history of tobacco, alcohol, or drug use. She lives with her , who is her surrogate. REVIEW OF SYSTEMS: Rather limited from this patient. The patient stated that she chronically has unsteady gait, but she does not use a cane or a walker. Her abdominal pain happened suddenly. She stated that usually her bowel movements are either on a daily basis or she is slightly constipated. She denies any diarrhea. She denies any nausea or vomiting. All the remaining 12 systems were reviewed with the patient and were otherwise negative. PHYSICAL EXAMINATION GENERAL: The patient is a very pleasant 73-year-old female, who is in no acute distress. Alert, awake, and oriented x3. VITAL SIGNS: Blood pressure of 140/74, heart rate of 65 and regular, respiratory rate 15, oxygen saturation 94% on room air, temperature of 97.9. HEENT: Head: Atraumatic, normocephalic. Eyes: Pupils are equal, reactive to light and accommodation. Oropharynx is clear. Mucosa dry. NECK: Supple. No JVD. No bruits bilaterally. RESPIRATORY: Clear to auscultation bilaterally. CARDIOVASCULAR: Regular rate and rhythm. No murmur. ABDOMEN: Soft. Tender in the right upper quadrant, right mid abdomen and right lower quadrant with no rebound, no guarding. Bowel sounds are hypoactive and present in all 4 quadrants. EXTREMITIES: There is no edema. Pulses are +2 bilaterally. No clubbing or cyanosis. NEUROLOGIC: Speech is clear. Cranial nerves II through XII are grossly intact. Motor strength is 5/5 bilaterally. SKIN: On evaluation of the skin, no ecchymotic areas or rashes noted. DIAGNOSTIC STUDIES/LAB DATA: Showed white blood cell count of 7.6, hemoglobin of 12.6, hematocrit of 36, and platelets of 93. The patient has history of chronic thrombocytopenia, but this is worse than usual. Sodium was 136, potassium of 3.1, chloride 104, carbon dioxide 25, BUN 12, creatinine 0.94. Liver function tests showed bilirubin of 1.1, otherwise were unremarkable. C-reactive protein was 31, lipase of 18. Urinalysis: +2 protein , specific gravity was 1.043. CT of abdomen and pelvis, impression: "Acute diverticulitis, right colon and hepatic flexure. Cirrhotic liver morphology with findings of portal hypertension. Mild splenomegaly. Prominent gastric varices." ASSESSMENT AND PLAN: 1. Acute diverticulitis. At this point, the patient is going to be placed on overnight observation, continued on Zosyn. Her diet is going to be limited to clears. 2. In regards to the patient's diabetes, I will lower the dose of the patient' s Lantus due to her limited diet. She is also going to be placed on insulin sliding scale. 3. For depression, Effexor is going to be continued. 4. For her hypertension, her medication including Imdur is going to be continued. I will hold the patient's furosemide due to labs indicating dehydration as well as clinical exam indicating dehydration. 5. For DVT prophylaxis, the patient is going to be placed on heparin subcutaneously. 6. The patient's code status is full. Her surrogate is her . 7. For the patient's chronic pain, her Lyrica and baclofen are going to be continued. TIME SPENT: Approximately 65 minutes was spent on evaluation of this patient, more than half of that time was spent [id number] with the patient during the interview and physical exam. [id number]/[facility] #: [id number] ALEXIS
[2018-04-30] MEDS: Insulin LISPRO* 1 UNITS UNIT SUBCUT SCH ×2 (17:32→20:54)
[2018-04-30] MEDS: Insulin GLARGINE(*) 1 UNITS UNIT SUBCUT SCH (20:54)
[2018-05-01] MEDS: ZOSYN 3.375 GM Q8H per EXTENDED INFUSION IVPB SCH ×6 (01:55→17:32)
[2018-05-01] MEDS: NS 0.9% 1000 ML* 1,000 ML IV SCH ×2 (01:55→11:36)
[2018-05-01] MEDS: Heparin VIAL(*) 5000 UNITS/ML VIAL (FIVE THOUSAND) SUBCUT SCH ×3 (06:11→22:15)
[2018-05-01] MEDS: Levothyroxine TAB* 100 MCG TAB PO SCH (06:11)
[2018-05-01] MEDS: Omeprazole CAP* 20 MG PO SCH (06:11)
[2018-05-01 06:58] LABS: ABS Basophils 0.1 10^3/ul (0-0.2); ABS Eosinophils 0.2 10^3/ul (0-0.6); ABS Lymphocytes 1.3 10^3/ul (1.0-4.8); ABS Monocytes 0.4 10^3/ul (0-0.8); ABS Neutrophils 2.9 10^3/ul (1.5-7.7); ABS Nucleated RBC 0 10^3/ul; Eosinophil % 3.9 % (0-6); Hematocrit 36 % (35-47); Hemoglobin 12.3 g/dl (12.0-16.0); Lymphocyte % 25.9 % (25-47); Mean Corpuscular HGB Conc 35 g/dl (31-36); Mean Corpuscular Hemoglobin 31 pg (27-31); Mean Corpuscular Volume 89 fL (80-97); Mean Platelet Volume 7.8 um3 (7.4-10.4); Nucleated Red Blood Cells % 0; Platelet Count 87 10^3/ul (150-450); Red Cell Distribution Width 14 % (10.5-15); White Blood Count 4.8 10^3/ul (3.5-10.8)
[2018-05-01 07:12] LABS: EGFR Non-African American 58.7 (>60)
[2018-05-01] MEDS: Insulin LISPRO* 1 UNITS UNIT SUBCUT SCH ×4 (08:35→20:26)
[2018-05-01] MEDS: amLODIPine TAB* 5 MG PO SCH (08:36)
[2018-05-01] MEDS: Insulin GLARGINE(*) 1 UNITS UNIT SUBCUT SCH ×2 (08:36→20:25)
[2018-05-01] MEDS: Baclofen TAB* 10 MG PO SCH ×3 (08:38→20:26)
[2018-05-01] MEDS: Isosorbide Mononitrate ER TAB* 30 MG PO SCH (08:38)
[2018-05-01] MEDS: Pregabalin CAP(*) 50 MG PO SCH (08:38)
[2018-05-01] MEDS: Venlafaxine EXT RELEASE CAP* 75 MG PO SCH (08:39)
[2018-05-01] MEDS ORDERED: Furosemide TAB* 20 MG PO SCH (09:00)
--- NOTE | 2018-05-01 11:46 | PN ---
Subjective Date of Service: 05/01/18 Interval History: Pt still c/o significant R sided abd pain. BM's had been "normal". no nausea Objective Active Medications: Acetaminophen (Tylenol Tab*) 650 mg PO Q4H PRN PRN Reason: FEVER/PAIN Last Admin: 04/30/18 16:30 Dose: 650 mg Amlodipine Besylate (Norvasc Tab*) 2.5 mg PO DAILY [facility] Last Admin: 05/01/18 08:36 Dose: 2.5 mg Baclofen (Lioresal Tab*) 10 mg PO TID [facility] Last Admin: 05/01/18 08:38 Dose: 10 mg Dextrose (D50w Syringe 50 Ml*) 12.5 gm IV PUSH .FOR FS < 60 - SS PRN PRN Reason: FS < 60 Heparin Sodium (Porcine) (Heparin Vial(*)) 5,000 units SUBCUT Q8HR [facility] Last Admin: 05/01/18 06:11 Dose: 5,000 units Piperacillin Sod/Tazobactam (Sod 3.375 gm/ Sodium Chloride) 100 mls @ 25 mls/ hr IVPB Q8H [facility] Last Admin: 05/01/18 09:58 Dose: 25 mls/hr Insulin Glargine (Lantus(*)) 10 units SUBCUT Q12HR@0800,1999 [facility] Last Admin: 05/01/18 08:36 Dose: 10 unit Insulin Human Lispro (Humalog*) 0 units SUBCUT ACHS [facility]; Protocol Last Admin: 05/01/18 08:35 Dose: 1 unit Isosorbide Mononitrate (Imdur Er Tab*) 30 mg PO DAILY [facility] Last Admin: 05/01/18 08:38 Dose: 30 mg Levothyroxine Sodium (Synthroid Tab*) 100 mcg PO DAILY@0600 [facility] Last Admin: 05/01/18 06:11 Dose: 100 mcg Magnesium Hydroxide (Milk Of Magnesia Liq*) 30 ml PO Q4H PRN PRN Reason: CONSTIPATION Morphine Sulfate (Morphine Vial*) 1 mg IV Q4H PRN PRN Reason: PAIN Omeprazole (Prilosec Cap*) 20 mg PO DAILY@0600 [facility] Last Admin: 05/01/18 06:11 Dose: 20 mg Pharmacy Consult (Zosyn Per Pharmacy*) 1 note FOLLOW UP .ZOSYN PER PHARMACY [facility] Pregabalin (Lyrica Cap(*)) 300 mg PO QPM [facility] Last Admin: 04/30/18 16:30 Dose: 300 mg Pregabalin (Lyrica Cap(*)) 150 mg PO QAM [facility] Last Admin: 05/01/18 08:38 Dose: 150 mg Venlafaxine HCl (Effexor Xr Cap*) 75 mg PO DAILY [facility] Last Admin: 05/01/18 08:39 Dose: 75 mg Vital Signs - 8 hr 05/01/18 05/01/18 05/01/18 07:49 08:00 08:38 Temperature 97.8 F Pulse Rate 60 Respiratory 16 17 17 Rate Blood Pressure 157/61 152/57 (mmHg) O2 Sat by Pulse 96 Oximetry 05/01/18 05/01/18 10:30 11:11 Temperature 99.7 F Pulse Rate 62 Respiratory 16 16 Rate Blood Pressure 141/54 (mmHg) O2 Sat by Pulse 96 Oximetry Oxygen Devices in Use Now: None Appearance: 73 yo f in nAD, aAOx3 Eyes: No Scleral Icterus, PERRLA Ears/Nose/Mouth/Throat: NL Teeth, Lips, Gums, Mucous Membranes Moist Neck: NL Appearance and Movements; NL JVP, Trachea Midline Respiratory: Symmetrical Chest Expansion and Respiratory Effort, Clear to Auscultation Cardiovascular: NL Sounds; No Murmurs; No JVD, RRR Abdominal: NL Sounds; No Tenderness; No Distention, No Hepatosplenomegaly Lymphatic: No Cervical Adenopathy Extremities: No Edema, No Clubbing, Cyanosis Skin: No Rash or Ulcers, No Nodules or Sclerosis Neurological: Alert and Oriented x 3, NL Muscle Strength and Tone Result Diagrams: 05/01/18 06:48 05/01/18 06:48 Assess/Plan/Problems-Billing Assessment: 73 yo f with h/o HTN, DM2 with acute diverticulitis - Patient Problems (1) Diverticulitis large intestine Comment: Still in significant discomfort. Will place on full admission cont Zosyn. Start advancing diet slowly. Stop IVF Cx stool (2) DM2 (diabetes mellitus, type 2) Comment: cont ISS and lower dose of Lantus (3) Cirrhosis Comment: Stable.She has mild thrombocytopenia that is likely secondary to her cirrhosis. Her cirrhosis is secondary to HOLMAN. (4) HTN (hypertension) Comment: BP is elevated mildly.Cont home meds. (5) Hypothyroidism Comment: Continue home synthroid dose of 100 mcg daily. (6) DVT prophylaxis Comment: SQ heparin
[2018-05-01] MEDS ORDERED: Insulin GLARGINE(*) 1 UNITS UNIT SUBCUT ONE (11:55)
[2018-05-01] MEDS: Pregabalin CAP(*) 100 MG PO SCH (17:27)
[2018-05-02] MEDS: ZOSYN 3.375 GM Q8H per EXTENDED INFUSION IVPB SCH ×4 (01:19→09:37)
[2018-05-02] MEDS: Heparin VIAL(*) 5000 UNITS/ML VIAL (FIVE THOUSAND) SUBCUT SCH ×2 (05:48→15:21)
[2018-05-02] MEDS: Levothyroxine TAB* 100 MCG TAB PO SCH (05:48)
[2018-05-02] MEDS: Omeprazole CAP* 20 MG PO SCH (05:48)
[2018-05-02 06:24] LABS: ABS Basophils 0 10^3/ul (0-0.2); ABS Eosinophils 0.2 10^3/ul (0-0.6); ABS Lymphocytes 1.2 10^3/ul (1.0-4.8); ABS Monocytes 0.3 10^3/ul (0-0.8); ABS Neutrophils 2.4 10^3/ul (1.5-7.7); ABS Nucleated RBC 0 10^3/ul; Eosinophil % 4.9 % (0-6); Hematocrit 35 % (35-47); Hemoglobin 11.9 g/dl (12.0-16.0); Lymphocyte % 28.5 % (25-47); Mean Corpuscular HGB Conc 34 g/dl (31-36); Mean Corpuscular Hemoglobin 31 pg (27-31); Mean Corpuscular Volume 89 fL (80-97); Mean Platelet Volume 7.7 um3 (7.4-10.4); Nucleated Red Blood Cells % 0.1; Platelet Count 93 10^3/ul (150-450); Red Blood Count 3.89 10^6/ul (4.00-5.40); Red Cell Distribution Width 14 % (10.5-15); White Blood Count 4.2 10^3/ul (3.5-10.8)
[2018-05-02 06:42] LABS: EGFR Non-African American 53.4 (>60)
[2018-05-02] MEDS ORDERED: Potassium Chlor TAB* 20 MEQ TAB.ER PO ONE (07:54)
[2018-05-02] MEDS: Insulin LISPRO* 1 UNITS UNIT SUBCUT SCH ×2 (07:58→12:28)
[2018-05-02] MEDS: Isosorbide Mononitrate ER TAB* 30 MG PO SCH (09:37)
[2018-05-02] MEDS: Baclofen TAB* 10 MG PO SCH ×2 (09:38→15:00)
[2018-05-02] MEDS: Pregabalin CAP(*) 50 MG PO SCH (09:38)
[2018-05-02] MEDS: amLODIPine TAB* 5 MG PO SCH (09:39)
[2018-05-02] MEDS: Venlafaxine EXT RELEASE CAP* 75 MG PO SCH (09:39)
[2018-05-02] MEDS: Insulin GLARGINE(*) 1 UNITS UNIT SUBCUT SCH (09:59)
[2018-05-02 11:21] VITALS: BP 153/61
--- NOTE | 2018-05-02 21:48 | DS ---
CC: Dr. Jenn Tan; Dr. Palmer * DISCHARGE SUMMARY: DATE OF ADMISSION: 04/30/18 DATE OF DISCHARGE: 05/02/18 PRIMARY CARE PROVIDER: Dr. Jenn Tan. DISCHARGE DIAGNOSIS: Right upper quadrant abdominal pain due to acute diverticulitis. SECONDARY DIAGNOSES: 1. History of chronic back pain due to cervical spine injury in . 2. History of depression. 3. Hypertension. 4. Diabetes type 2. 5. Hypothyroidism. 6. Dyslipidemia. 7. History of cholecystectomy. 8. Negative cardiac catheterization in 2014. 9. Appendectomy. 10. History of nonalcoholic liver disease with liver cirrhosis. MEDICATIONS AT DISCHARGE: Include: 1. Norvasc 2.5 mg daily. 2. Baclofen 10 mg 3 times a day. 3. Lasix 20 mg daily. 4. Insulin NovoLog sliding scale. 5. Insulin Lantus 30 units daily. 6. Imdur 30 mg daily. 7. Synthroid 100 mcg daily. 8. Lyrica 150 mg daily in the morning and 300 at night. 9. Effexor XR 75 mg daily. 10. Ciprofloxacin 500 mg b.i.d. for a total of 10 days. 11. Probiotic 1 capsule b.i.d. 12. Metronidazole 500 mg 3 times a day for a total of 10 days. LABORATORY DATA AND STUDIES PERFORMED DURING THE HOSPITAL STAY: Included on , white blood cell count of 4.2, hemoglobin of 11.9, hematocrit of 35, and platelets of 93, which is chronic. Sodium was 141, potassium of 3.3, chloride 108, carbon dioxide 27, BUN 10, creatinine 1.02. CT of abdomen and pelvis obtained on 04/30/18, impression: "Acute diverticulitis of right colon at the hepatic flexure. Cirrhotic liver morphology with findings of portal hypertension. Mild splenomegaly. Prominent gastric varices." HOSPITALIZATION COURSE: Casandra Zavala is a 73-year-old female with history of nonalcoholic liver disease as well as chronic pain due to C-spine injury in the past as well as diabetes type 2, who presents to the hospital with right upper quadrant abdominal pain. The patient was diagnosed with acute diverticulitis and treated with IV Zosyn for the duration of this hospital stay. By the time of discharge, the patient was tolerating soft diet without any pain. She did have some mild tenderness in the right upper quadrant on palpation, but she had been otherwise doing fine. She has had daily bowel movements without diarrhea. Stool culture is still pending at dictation. She is going to be discharged home with a 10 days' treatment of ciprofloxacin and Flagyl and follow up with her primary care provider in approximately 4 to 7 days. PHYSICAL EXAMINATION: At the time of discharge, blood pressure of 153/61, heart rate of 57 and regular, respiratory rate 19, oxygen saturation was 100% on room air, temperature of 97.3. General: The patient is a very pleasant 73- year-old female who is in no acute distress. Alert, awake, and oriented x3. HEENT: Head: Atraumatic, normocephalic. Eyes: Pupils are equal, reactive to light and accommodation. Oropharynx is clear. Mucosa moist. Neck: Supple. No JVD. No bruits bilaterally. Cardiovascular: Regular rate and rhythm. No murmur. Respiratory: Clear to auscultation bilaterally. Abdomen: Soft. Tender in the right upper quadrant mildly with no rebound, no guarding. Bowel sounds are present in all 4 quadrants. Abdomen is rather distended and tympanic to percussion. Extremities: There is no edema. Pulses are +2 bilaterally. No clubbing or cyanosis. Please note that this is a short summary of the patient's hospital stay. Please refer to further medical records for details. TIME SPENT: Approximately 45 minutes was spent on preparation of the patient's discharge. [id number]/CPS #: [id number] MTDD
== END 2018-05-02 16:00 | disposition home or self-care (01) | DRG 392 ==
LOC: ED 11:10 → MED 13:18 → OBSVTOIN 05-01 11:38
PROVIDERS: ADMIT Internal Medicine; ATTEND Internal Medicine
DX: K57.32 Diverticulitis of large intestine without perforation or abscess without bleeding (principal); K76.6 Portal hypertension; E03.9 Hypothyroidism, unspecified; E11.9 Type 2 diabetes mellitus without complications; I11.0 Hypertensive heart disease with heart failure; I50.9 Heart failure, unspecified; M41.9 Scoliosis, unspecified; M79.7 Fibromyalgia; F32.9 Major depressive disorder, single episode, unspecified; M54.9 Dorsalgia, unspecified; K74.60 Unspecified cirrhosis of liver; E78.5 Hyperlipidemia, unspecified; R16.1 Splenomegaly, not elsewhere classified; I86.4 Gastric varices; Z79.4 Long term (current) use of insulin; Z90.49 Acquired absence of other specified parts of digestive tract; Z88.8 Allergy status to other drugs, medicaments and biological substances; Z98.1 Arthrodesis status; Z86.010 Personal history of colon polyps; Z82.49 Family history of ischemic heart disease and other diseases of the circulatory system; Z83.3 Family history of diabetes mellitus; Z87.891 Personal history of nicotine dependence; G89.4 Chronic pain syndrome; R26.81 Unsteadiness on feet; K59.00 Constipation, unspecified; K57.90 Diverticulosis of intestine, part unspecified, without perforation or abscess without bleeding; D69.6 Thrombocytopenia, unspecified
CPT/HCPCS: 36415; 74177; 80048; 80053; 81003; 81015; 83690; 85025; 86140; 87045; 87046; 87086; 87899; 99284; A9270-GY; J0692; J1644; J2543; J3480; Q9967

== ENCOUNTER 2019-05-27 09:44 | Observation (INO) | payer MEDICARE, BC ==
[2019-05-27] MEDS ORDERED: NS 0.9% 1000 ML** 1,000 ML IV ONE (09:56)
--- NOTE | 2019-05-27 09:58 | ED ---
Altered Mental Status - HPI Summary HPI Summary: 74 year old F brought in by EMS to [facility] accompanied by complains of altered mental status since this morning. Symptoms aggravated by nothing. Symptoms alleviated by nothing. reports lethargy. states that patient complains of right shoulder pain. denies fever, cough, abdominal pain. reports that he was unable to wake patient up this morning and that patient wasn't able to get out of bed. reports that patient would agree to wake up, attempt to get out of bed, but then would stop. states that yesterday, patient was working in the garden and had normal bowel movement. Patient is unable to answer what medications she took this morning per nurse. Patient states she took Synthroid per nurse. Patient does not take blood thinners. - History Of Current Complaint Stated Complaint: AMS AND LETHARGY PER EMS Time Seen by Provider: 05/27/19 09:50 Hx Obtained From: Family/[employer] Product Consultant - , Other: - nurse Onset/Duration: Still Present Timing: Constant Aggravating Factor(s): Nothing Alleviating Factor(s): Nothing - Allergies/Home Medications Allergies/Adverse Reactions: Allergies Allergy/AdvReac Type Severity Reaction Status Date / Time duloxetine [From Cymbalta] Allergy Hallucinati Verified 05/27/19 10:11 ons rosiglitazone [From Avandia] Allergy Unknown Verified 05/27/19 10:11 Reaction Details PMH/Surg Hx/FS Hx/Imm Hx Previously Healthy: No Endocrine/Hematology History: Reports: Hx Diabetes, Hx Thyroid Disease - hypothyroid, Hx Anemia Denies: Hx Systemic Lupus Erythematosus Cardiovascular History: Reports: Hx Angina, Hx Congestive Heart Failure, Hx Hypercholesterolemia, Hx Hypertension, Other Cardiovascular Problems/Disorders Denies: Hx Coronary Artery Disease, Hx Myocardial Infarction, Hx Pacemaker/ ICD, Hx Valvular Heart Disease Respiratory History: Reports: Other Respiratory Problems/Disorders - CHF 03/08/15 Denies: Hx Asthma, Hx Chronic Obstructive Pulmonary Disease (COPD) GI History: Reports: Hx Diverticulosis, Other GI Disorders History: Reports: Hx Dialysis, Other Problems/Disorders - "impaired kidneys" Denies: Hx Renal Disease Musculoskeletal History: Reports: Hx Fibromyalgia, Hx Orthopedic Injury - neck injury, Hx Scoliosis, Other Musculoskeletal History - upper body pain Denies: Hx Rheumatoid Arthritis Sensory History: Reports: Hx Contacts or Glasses Denies: Hx Hearing Aid Opthamlomology History: Reports: Hx Contacts or Glasses Psychiatric History: Reports: Hx Depression Denies: Hx Panic Disorder - Cancer History Hx Chemotherapy: No - Surgical History Surgery Procedure, Year, and Place: neck diskectomy with fusion 1997 and 2006,. cholecystectomy. 12/2017 - intestinal polyps removed Hx Anesthesia Reactions: No Infectious Disease History: Denies: Traveled Outside the [place] in Last 30 Days - Family History Known Family History: Positive: Cardiac Disease - Social History Alcohol Use: None Hx Substance Use: No Substance Use Type: Reports: None Substance Use Comment - Amount & Last Used: nucynta Hx Tobacco Use: Yes Smoking Status (MU): Former Smoker Type: Cigarettes Amount Used/How Often: 6-7 cigarettes/day Have You Smoked in the Last Year: Yes Review of Systems Negative: Fever Negative: Cough Negative: Abdominal Pain Positive: Other - ight shoulder pain Neurological: Other - lethargy Positive: Other - altered mental status All Other Systems Reviewed And Are Negative: Yes Physical Exam - Summary Physical Exam Summary: VITAL SIGNS: Reviewed. GENERAL: Patient is a well-developed and nourished FEMALE who is lying comfortable in the stretcher. Patient is not in any acute respiratory distress. HEAD AND FACE: No signs of trauma. No ecchymosis, hematomas or skull depressions. No sinus tenderness. EYES: PERRLA, EOMI x 2, No injected conjunctiva, no nystagmus. EARS: Hearing grossly intact. Ear canals and tympanic membranes are within normal limits. MOUTH: Oropharynx within normal limits. NECK: Supple, trachea is midline, no adenopathy, no JVD, no carotid bruit, no c- spine tenderness, neck with full ROM. CHEST: Symmetric, no tenderness at palpation. LUNGS: She has rhonchi in bases of the lungs CVS: Regular rate and rhythm, S1 and S2 present, no gallops appreciated. She has an ejection systolic murmur ABDOMEN: Soft, non-tender. No signs of distention. No rebound, no guarding, and no masses palpated. Bowel sounds are normal. EXTREMITIES: FROM in all major joints, no edema, no cyanosis or clubbing. NEURO: She is lethargic and very sleepy SKIN: Dry and warm. She has a small hematoma secondary to insulin injections in the LLQ GCS: 15 Triage Information Reviewed: Yes Vital Signs Reviewed: Yes Diagnostics - Laboratory Result Diagrams: 05/27/19 10:11 05/27/19 10:15 Lab Statement: Any lab studies that have been ordered have been reviewed, and results considered in the medical decision making process. - Radiology Chest x-ray Radiology Interpretation Completed By: Radiologist Summary of Radiographic Findings: LOW LUNG VOLUMES. NO ACTIVE CARDIOPULMONARY DISEASE. ED physician has reviewed this report. - CT Brain CT Interpretation Completed By: Radiologist Summary of CT Findings: NO ACUTE INTRACRANIAL PATHOLOGY. ED physician has reviewed this report. - EKG 1009 Cardiac Rate: NL - 72 BPM EKG Rhythm: Sinus Rhythm EKG Comparison: No Significant Change - Compared to previous EKG done on 10/25/18 Summary of EKG Findings: Sinus rhythm [address] elevations. Similar to previous EKG done on 10/25/18 Altered Mental Statu Course/Dx - Course Assessment/Plan: 74 year old F brought in by EMS to [facility] accompanied by complains of altered mental status since this morning. Symptoms aggravated by nothing. Symptoms alleviated by nothing. reports lethargy. states that patient complains of right shoulder pain. denies fever, cough, abdominal pain. reports that he was unable to wake patients up this morning and that patient wasn't able to get out of bed. reports that patient would agree to wake up, attempt to get out of bed, but then would stop. states that yesterday, patient was working in the garden and had normal bowel movement. Patient is unable to answer what medications she took this morning per nurse. Patient states she took Synthroid per nurse. Blood work without any significant abnormality except for platelets of 82, glucose 254, magnesium 1.8. The patient was given IV fluids for the hyperglycemia and slight dehydration, and magnesium by mouth for the hypomagnesemia. Chest x-ray is negative for pneumonia. Urinalysis negative for UTI. Head CT impression: No acute interconnected pathology. The patients symptoms may be secondary to the patient taken baclofen and Lyrica at the same time. However, the etiologies of her altered mental status at this point is unknown. I discussed my physical exam and findings with Dr. Quiroz from the hospital services who accepted the patient for admission. - Diagnoses Provider Diagnoses: Altered mental status - Provider Notifications Discussed Care Of Patient With: Dorothy Quiroz Time Discussed With Above Provider: 11:31 Instructed by Provider To: Other - Dr. Quiroz, hospitalist, agrees to admit patient Discharge - Sign-Out/Discharge Documenting (check all that apply): Patient Departure - Admit Patient Received Moderate/Deep Sedation with Procedure: No - Discharge Plan Condition: Stable Disposition: ADMITTED TO [facility] - Billing Disposition and Condition Condition: STABLE Disposition: Admitted to [facility] - Attestation Statements Document Initiated by Scribe: Yes Documenting Scribe: Jenny Stanley Provider For Whom Kariibe is Documenting (Include Credential): Alexis Silva MD Scribe Attestation: Jenny Singletary, scribed for Alexis Silva MD on 05/27/19 at 1831. Scribe Documentation Reviewed: Yes Provider Attestation: The documentation as recorded by the Jenny kennedy accurately reflects the service I personally performed and the decisions made by me, Alexis Silva MD Status of Scribe Document: Viewed
[2019-05-27 10:43] LABS: ABS Eosinophils 0.1 10^3/ul (0-0.6); ABS Lymphocytes 0.8 10^3/ul (1.0-4.8); ABS Monocytes 0.6 10^3/ul (0-0.8); ABS Neutrophils 6.2 10^3/ul (1.5-7.7); Eosinophil % 0.7 %; Hematocrit 39 % (35-47); Hemoglobin 13.6 g/dL (12.0-16.0); Lymphocyte % 10.8 %; Mean Corpuscular HGB Conc 35 g/dL (31-36); Mean Corpuscular Hemoglobin 31 pg (27-31); Mean Corpuscular Volume 88 fL (80-97); Mean Platelet Volume 7.8 fL (7.4-10.4); Platelet Count 82 10^3/uL (150-450); Red Blood Count 4.46 10^6 /uL (3.70-4.87); Red Cell Distribution Width 15 % (10-15); White Blood Count 7.7 10^3/uL (3.5-10.8)
[2019-05-27 10:55] LABS: ALT 20 U/L (7-52); AST 24 U/L (13-39); Albumin 3.9 g/dL (3.2-5.2); Alkaline Phosphatase 89 U/L (34-104); Anion Gap 4 mmol/L (2-11); BUN/Creatinine Ratio 10.9 (8-20); Blood Urea Nitrogen 10 mg/dL (6-24); CO2 Carbon Dioxide 29 mmol/L (22-32); Calcium 9.5 mg/dL (8.6-10.3); Chloride 103 mmol/L (101-111); Creatine Kinase 64 U/L (10-223); EGFR African American 72.6 (>60); Globulin 3.8 g/dL (2-4); Glucose 254 mg/dL (70-100); Magnesium 1.8 mg/dL (1.9-2.7); Potassium 3.9 mmol/L (3.5-5.0); Sodium 136 mmol/L (135-145); Total Protein 7.7 g/dL (6.4-8.9); Troponin I 0.01 ng/mL (<0.04)
[2019-05-27 11:20] LABS: Urine Appearance Clear; Urine Bacteria Absent (Absent); Urine Bilirubin Negative (Negative); Urine Blood Negative (Negative); Urine Color Yellow; Urine Glucose 3+(>=500 mg/dL) (Negative); Urine Ketones Negative (Negative); Urine Nitrite Negative (Negative); Urine Protein 2+(100 mg/dL) (Negative); Urine Red Blood Cell Absent (Absent); Urine Specific Gravity 1.009 (1.010-1.030); Urine Urobilinogen Negative (Negative); Urine White Blood Cell Absent (Absent)
[2019-05-27 11:24] LABS: Alcohol < 10 mg/dL (<10)
[2019-05-27 11:34] LABS: TSH (Thyroid Stimulating Horm) 2.47 mcIU/mL (0.34-5.60)
[2019-05-27] MEDS ORDERED: Magnesium Chloride EC TAB* 64 MG PO ONE (11:39)
[2019-05-27 11:43] LABS: Urine Benzodiazepine Screen None Detected (None Detect); Urine Opiates Screen None Detected (None Detect)
[2019-05-27] MEDS ORDERED: Ondansetron INJ* 2 MG/ML VIAL IV PRN (12:07)
[2019-05-27] MEDS ORDERED: Acetaminophen TAB* 325 MG PO PRN (12:07)
[2019-05-27] MEDS ORDERED: Dextrose 50% VIAL 50 ml IV PUSH PRN (12:21)
[2019-05-27] MEDS ORDERED: Magnesium Sulfate 2 GM IV* 2 GM/50 ML BAG IVPB ONE (12:24)
[2019-05-27] MEDS ORDERED: Lactated Ringers 1000 ML Bag* 1,000 ML IV SCH (13:00)
--- NOTE | 2019-05-27 13:42 | HP ---
CC: Dr. Jenn Tan * ADMISSION HISTORY AND PHYSICAL: DATE OF ADMISSION: 05/27/19 PRIMARY CARE PROVIDER: Dr. Jenn Tan. MY ATTENDING WHILE IN THE HOSPITAL: Dr. Dorothy Perdomo.* (DICTATED BY MIREYA MAGALLANES) CHIEF COMPLAINT: Somnolence x4 hours. HISTORY OF PRESENT ILLNESS: Ms. Zavala is a 74-year-old female with past medical history significant for chronic back pain, CHF, cirrhosis related to nonalcoholic fatty liver disease and diabetes mellitus type 2, who has been in her normal state of health except for complaining of increased right shoulder pain, worse with activity and movement over the past several days, who has been taking her normal medications as far as her knows, but she handles all her medications and he does not know whether she has been taking them correctly or whether she has been taking increased doses of any of her medications. The patient has not eaten anything out of the ordinary, has not had any recent medication changes that she or her is aware. She has not done any illicit drugs. The patient has not had any narcotic prescriptions filled recently according to her prescription monitoring program. The patient has no rashes. Most of this history is obtained from the patient's . The patient was able to be aroused and answered approximately 1 question at a time until she drifts back to sleep. Her answers to these questions are not always consistent and there are long pauses between her responses. The patient is not significantly fluid overloaded on exam. The patient has not been noted to have bright red blood per rectum. In the emergency department, the patient's lab work is relatively unremarkable including a negative ammonia, no acidosis, a normal hemoglobin and hematocrit, and a negative urinalysis. Due to concern for altered mental status, we were asked to evaluate the patient for admission to the hospital. In documentation from previous hospitalizations, the patient has had issues with somnolence related to her pain medications. The patient was most recently seen by her pain management doctor, Dr. Alvaro Downey on , at which time she has had bupivacaine injections into her trapezius muscles and had no changes to her pain regimen at that time. PAST MEDICAL HISTORY: Chronic back pain, CHF, depression, hypertension, diabetes mellitus type 2, hypothyroidism, hyperlipidemia, nonalcoholic fatty liver disease, cirrhosis, history of diverticulitis. PAST SURGICAL HISTORY: Cholecystectomy, cardiac catheterization in 2015, appendectomy, cervical fusion x2. MEDICATIONS: 1. Furosemide 20 mg p.o. daily. 2. Isosorbide mononitrate 30 mg p.o. daily. 3. Amlodipine 5 mg p.o. daily. 4. Levothyroxine 100 mcg p.o. daily. 5. Pregabalin 150 mg p.o. q.a.m. 6. Pregabalin 300 mg p.o. q.p.m. 7. Baclofen 10 mg p.o. t.i.d. 8. Insulin glargine 35 units subcutaneous q.12 hours. 9. Insulin NovoLog sliding scale. 10. Venlafaxine 50 mg p.o. daily. 11. Ferrous sulfate 325 mg p.o. b.i.d. 12. Vitamin B12 2000 mcg p.o. daily. 13. Atorvastatin 10 mg p.o. daily. ALLERGIES: DULOXETINE, ROSIGLITAZONE. FAMILY HISTORY: Available from previous history and physicals, significant for sister who had coronary artery disease and hypertension. Brother at age 71 of myocardial infarction. Mother had history of CHF, [place], and at 82. The patient's mother and father both had diabetes mellitus. SOCIAL HISTORY: The patient is a former smoker for 50 plus years. She denies alcohol. The patient at this time was able to deny illicit drug use. 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 The patient is to her , Matthew Zavala, who is her surrogate decision maker. REVIEW OF SYSTEMS: A 14-point review of systems was reviewed and is negative except as above in the HPI. PHYSICAL EXAMINATION GENERAL: The patient is a 74-year-old female, who appears stated age and is sitting comfortably in bed, in no acute distress. VITAL SIGNS: At the time of evaluation, temperature 98.4, pulse rate 70, respiratory rate 16, oxygen saturation 93% on room air, blood pressure 177/83. HEENT: Head: Normocephalic, atraumatic. Sclerae anicteric. No conjunctival injection. Nasal mucosa moist. Oral mucosa moist. No pharyngeal erythema, discharge, or exudate. NECK: Supple, nontender. No lymphadenopathy. No carotid bruits auscultated. No JVD. RESPIRATORY: Clear to auscultation bilaterally. No wheezes, rales, or rhonchi. Good air exchange bilaterally. CARDIAC: Regular rate and rhythm. No clicks, murmurs, gallops, or rubs. Pulses are 2+ in the bilateral dorsalis pedis, posterior tibialis, and radial areas. ABDOMEN: Soft, nontender, nondistended. Bowel sounds present and normoactive in all 4 quadrants. No hepatosplenomegaly. No abdominal bruits auscultated. No hepatojugular reflux. GENITOURINARY: No suprapubic or CVA tenderness. NEURO: Drowsy. Alert only to self. Frequent myoclonic jerks. Diffuse weakness. No focal deficits. Limited exam due to the patient's participation. PSYCHIATRIC: Subdued, noncombative. SKIN: Clean, dry, and intact. No rash. DIAGNOSTIC STUDIES/LAB DATA: White blood cell count 7.7, hemoglobin 13.6, platelet count 82. Sodium 136, potassium 3.9, chloride 103, carbon dioxide 21, anion gap 4, BUN 10, creatinine 0.92, glucose 254, lactic acid 1.1, calcium 9.5 , magnesium 1.8. Bilirubin 1.0, AST 24, ALT 20, alkaline phosphatase 89. Ammonia 38. Creatine kinase 64. Troponin I 0.01. Protein 7.7, albumin 3.9, globulin 3.8. TSH 2.47. Urine shows 2+ protein, 3+ glucose. Toxicology shows presumptively positive amphetamines. Studies: Chest x-ray read as low lung volumes. No intrathoracic pathology. Brain CT read as normal brain CT. Electrocardiogram shows normal sinus rhythm, left axis deviation, left atrial enlargement, borderline left ventricular hypertrophy, and P-mitrale. Compared to previous exam, there are no significant changes. ASSESSMENT AND PLAN: Impression: Ms. Zavala is a 74-year-old female with past medical history significant for chronic back pain, congestive heart failure, diabetes mellitus type 2 and cirrhosis due to nonalcoholic fatty liver disease, who presents to the emergency department after this morning being difficult to arouse by her and in the emergency department was found to have a relatively unremarkable workup, but concern for unintentional drug overdose. The patient will be admitted to the hospital for monitoring and supportive care. 1. Altered mental status. The patient has a history of altered mental status related to her medications from a hospitalization in 2017. The patient is on Lyrica and is having myoclonic jerks and has been having increased pain over the last several days. It is very possible that the patient has been taking extra medications. The patient is unable to state how much baclofen she is taking. The patient's will bring in her medications for pill counts if possible. The patient received 1 L of fluids in the emergency department. The patient will be continued on fluids slowly to aid in medication clearance. The patient's Lyrica at this time will be held, but reintroduction of a low dose would likely be indicated at some point in the future if the patient remains lethargic for an extended period of time to avoid any possibility of rebound seizures. The patient's urine drug screen is positive for amphetamines. The patient's and the patient herself deny any illicit drug use. There is very low concern for cerebrovascular disease at this point. If the patient does not improve with time and fluids, further imaging of the brain may be indicated. The patient's ammonia is normal. The patient's cirrhosis seems very well compensated. The patient has no history of hepatic encephalopathy, though a trial of lactulose may be considered. The patient's respiratory status is unremarkable at this time and there is no indication for an ABG at this time. 2. Chronic back pain. The patient is complaining of back pain and shoulder pain at this time, which is chronic for her, but worsened. When the patient is able to participate, physical therapy may be indicated. The patient's Lyrica will be held at this time. 3. Congestive heart failure. The patient currently appears euvolemic. Continue the patient's low-dose diuretics with her fluids to aid in medication clearance. No signs of fluid overload on chest x-ray or physical exam. 4. Hypertension. Continue the patient's home blood pressure medications. She is currently hypertensive. 5. Diabetes mellitus type 2. Decrease the patient's dose of glargine. Fingersticks q.6 while she is not able to eat, with insulin sliding scale coverage. 6. Hypothyroidism. Continue the patient's medication. TSH is currently normal. 7. Cirrhosis. The patient appears currently compensated. The patient has known varices, but is not anemic at this time and has no reports of bright red blood per rectum or melena. The patient's platelet count is low consistent with her previous studies likely related to portal hypertension. The patient has no signs of current hepatitis. 8. DVT prophylaxis: Lovenox subcu. 9. FEN: The patient will be n.p.o. at this time until she is more alert to avoid aspiration except for meds with sips of water and will have fluids at 75 mL an hour. 10. Disposition: The patient is admitted to observation to the hospital. TIME SPENT: Approximately 60 minutes was spent on the admission of this patient , 30 of which was spent [id number] with the patient obtaining history and physical and discussing treatment plan as well as discussing this plan with her on the phone. This plan has been discussed with my attending, Dr. Dorothy Perdomo, and she is in agreement. MIREYA MAGALLANES [id number]/[facility] #: [id number] MTDD
[2019-05-27] MEDS: Enoxaparin(*) 40 MG/0.4 ML SYR SUBCUT SCH (15:20)
[2019-05-27] MEDS: Insulin LISPRO* 1 UNITS UNIT SUBCUT SCH (18:42)
[2019-05-27] MEDS: Ferrous Sulfate TAB* 325 MG PO SCH (21:52)
[2019-05-28] MEDS: Insulin LISPRO* 1 UNITS UNIT SUBCUT SCH ×5 (04:50→21:36)
[2019-05-28] MEDS: Levothyroxine TAB* 100 MCG TAB PO SCH (06:15)
[2019-05-28 06:47] LABS: ABS Eosinophils 0.2 10^3/ul (0-0.6); ABS Lymphocytes 1.6 10^3/ul (1.0-4.8); ABS Monocytes 0.4 10^3/ul (0-0.8); ABS Neutrophils 3.4 10^3/ul (1.5-7.7); Eosinophil % 3.2 %; Hematocrit 37 % (35-47); Hemoglobin 12.9 g/dL (12.0-16.0); Lymphocyte % 28.5 %; Mean Corpuscular HGB Conc 35 g/dL (31-36); Mean Corpuscular Hemoglobin 31 pg (27-31); Mean Corpuscular Volume 88 fL (80-97); Mean Platelet Volume 7.6 fL (7.4-10.4); Platelet Count 82 10^3/uL (150-450); Red Blood Count 4.23 10^6 /uL (3.70-4.87); Red Cell Distribution Width 14 % (10-15); White Blood Count 5.6 10^3/uL (3.5-10.8)
[2019-05-28 06:55] LABS: Albumin 3.5 g/dL (3.2-5.2); Calcium 8.7 mg/dL (8.6-10.3); Potassium 3.5 mmol/L (3.5-5.0)
[2019-05-28 07:01] LABS: EGFR African American 81.8 (>60); EGFR Non-African American 67.6 (>60); Globulin 3.6 g/dL (2-4); Total Protein 7.1 g/dL (6.4-8.9)
[2019-05-28] MEDS: amLODIPine TAB* 5 MG PO SCH (09:15)
[2019-05-28] MEDS: Isosorbide Mononitrate ER TAB* 30 MG PO SCH (09:16)
[2019-05-28] MEDS: CMCS: Venlafaxine TAB (NF) 25 MG TAB PO SCH (09:16)
[2019-05-28] MEDS: Cyanocobalamin TAB* 500 MCG PO SCH (09:16)
[2019-05-28] MEDS: Ferrous Sulfate TAB* 325 MG PO SCH ×2 (09:17→21:35)
[2019-05-28] MEDS: Furosemide TAB* 20 MG PO SCH (09:17)
[2019-05-28] MEDS: Atorvastatin* 10 MG TAB PO SCH (09:17)
[2019-05-28] MEDS: Insulin GLARGINE(*) 1 UNITS UNIT SUBCUT SCH (09:27)
[2019-05-28] MEDS: Enoxaparin(*) 40 MG/0.4 ML SYR SUBCUT SCH (12:25)
[2019-05-28] MEDS ORDERED: Dextrose 50% VIAL 50 ml IV PUSH PRN (16:50)
--- NOTE | 2019-05-28 17:04 | PN ---
Subjective Date of Service: 05/28/19 Interval History: Patient resting in bed on assessment. Reports she feels improved today as she feels more awake. When discussing events leading up to admission she reports the day before her presentation to the ED she was weeding her and her son's garden. She reports she might have "over done it". She recalls having "dropsy" which she described as when she drops items or has trouble with her limbs. She reports she was on all fours weeding and had trouble getting her legs to do what she wanted to resume standing position. She reports she has "dropsy" intermittently with last episode maybe 2 yrs ago. She reports she was very tired when she went to bed last night and she recalls her trying to wake her yesterday morning, but she was unable to respond to him verbally, therefore, he called 911. Patient currently denies difficulty finding words or talking, weakness, dizziness, visual complaints. Objective Active Medications: Acetaminophen (Tylenol Tab*) 650 mg PO Q6H PRN PRN Reason: MILD PAIN or TEMP > 100.4 Amlodipine Besylate (Norvasc Tab*) 2.5 mg PO DAILY [facility] Last Admin: 05/28/19 09:15 Dose: 2.5 mg Atorvastatin Calcium (Lipitor*) 10 mg PO DAILY [facility] Last Admin: 05/28/19 09:17 Dose: 10 mg Cyanocobalamin (Vitamin B12 Tab*) 2,000 mcg PO DAILY [facility] Last Admin: 05/28/19 09:16 Dose: 2,000 mcg Dextrose (Dextrose 50% Vial 50 Ml*) 25 ml IV PUSH .FOR FS < 60 - SS PRN PRN Reason: FS < 60 Dextrose (Dextrose 50% Vial 50 Ml*) 25 ml IV PUSH .FOR FS < 60 - SS PRN PRN Reason: FS < 60 Enoxaparin Sodium (Lovenox(*)) 40 mg SUBCUT Q24H [facility] Last Admin: 05/28/19 12:25 Dose: 40 mg Ferrous Sulfate (Ferrous Sulfate Tab*) 325 mg PO BID [facility] Last Admin: 05/28/19 09:17 Dose: 325 mg Furosemide (Lasix Tab*) 20 mg PO DAILY [facility] Last Admin: 05/28/19 09:17 Dose: 20 mg Lactated Ringer's (Lactated Ringers 1000 Ml Bag*) 1,000 mls @ 75 mls/hr IV PER RATE [facility] Last Admin: 05/27/19 15:19 Dose: 75 mls/hr Insulin Glargine (Lantus(*)) 20 units SUBCUT DAILY [facility] Last Admin: 05/28/19 09:27 Dose: 20 units Insulin Human Lispro (Humalog*) 0 units SUBCUT Q6HR [facility]; Protocol Last Admin: 05/28/19 12:23 Dose: 4 units Insulin Human Lispro (Humalog*) 0 units SUBCUT ACHS ERICH; Protocol Isosorbide Mononitrate (Imdur Er Tab*) 30 mg PO DAILY [facility] Last Admin: 05/28/19 09:16 Dose: 30 mg Levothyroxine Sodium (Synthroid Tab*) 100 mcg PO 0600 [facility] Last Admin: 05/28/19 06:15 Dose: 100 mcg Ondansetron HCl (Zofran Inj*) 4 mg IV Q6H PRN PRN Reason: NAUSEA Venlafaxine HCl (Effexor Tab (Nf)) 50 mg PO DAILY [facility]; Protocol Last Admin: 05/28/19 09:16 Dose: 50 mg Vital Signs - 8 hr 05/28/19 11:27 Temperature 97.8 F Pulse Rate 68 Respiratory 20 Rate Blood Pressure 155/62 (mmHg) O2 Sat by Pulse 94 Oximetry Oxygen Devices in Use Now: None Appearance: Comfortable, NAD Eyes: No Scleral Icterus, PERRLA Ears/Nose/Mouth/Throat: Clear Oropharnyx, Mucous Membranes Moist Neck: NL Appearance and Movements; NL JVP Respiratory: Symmetrical Chest Expansion and Respiratory Effort, Clear to Auscultation Cardiovascular: NL Sounds; No Murmurs; No JVD, RRR, No Edema Abdominal: NL Sounds; No Tenderness; No Distention Lymphatic: No Cervical Adenopathy Extremities: No Edema, No Clubbing, Cyanosis Skin: No Rash or Ulcers Neurological: Alert and Oriented x 3, NL Sensation, NL Muscle Strength and Tone , - - Cranial nervies intact. No drift. Coordination intact. Nutrition: Taking PO's Result Diagrams: 05/28/19 06:21 05/28/19 06:21 Additional Lab and Data: Laboratory Results - last 24 hr 05/27/19 05/27/19 05/28/19 09:45 17:53 04:06 WBC RBC Hgb Hct MCV MCH MCHC RDW Plt Count MPV Neut % (Auto) Lymph % (Auto) [place] % (Auto) Eos % (Auto) Baso % (Auto) Absolute Neuts (auto) Absolute Lymphs (auto) Absolute Monos (auto) Absolute Eos (auto) Absolute Basos (auto) Absolute Nucleated RBC Nucleated RBC % Sodium Potassium Chloride Carbon Dioxide Anion Gap BUN Creatinine Est GFR ( Amer) Est GFR (Non-Af Amer) BUN/Creatinine Ratio Glucose POC Glucose (mg/dL) 171 H 162 H Hemoglobin A1c Calcium Magnesium Total Bilirubin AST ALT Alkaline Phosphatase Total Protein Albumin Globulin Albumin/Globulin Ratio Ur Amphetamines Screen None detected 05/28/19 05/28/19 05/28/19 06:21 06:21 06:21 WBC 5.6 RBC 4.23 Hgb 12.9 Hct 37 MCV 88 MCH 31 MCHC 35 RDW 14 Plt Count 82 L MPV 7.6 Neut % (Auto) 60.0 Lymph % (Auto) 28.5 [place] % (Auto) 7.9 Eos % (Auto) 3.2 Baso % (Auto) 0.4 Absolute Neuts (auto) 3.4 Absolute Lymphs (auto) 1.6 Absolute Monos (auto) 0.4 Absolute Eos (auto) 0.2 Absolute Basos (auto) 0.0 Absolute Nucleated RBC 0.0 Nucleated RBC % 0.0 Sodium 137 Potassium 3.5 Chloride 106 Carbon Dioxide 25 Anion Gap 6 BUN 10 Creatinine 0.83 Est GFR ( Amer) 81.8 Est GFR (Non-Af Amer) 67.6 BUN/Creatinine Ratio 12.0 Glucose 171 H POC Glucose (mg/dL) 167 H Hemoglobin A1c Calcium 8.7 Magnesium 2.0 Total Bilirubin 1.00 AST 22 ALT 18 Alkaline Phosphatase 83 Total Protein 7.1 Albumin 3.5 Globulin 3.6 Albumin/Globulin Ratio 1.0 Ur Amphetamines Screen 05/28/19 05/28/19 05/28/19 06:21 11:48 16:22 WBC RBC Hgb Hct MCV MCH MCHC RDW Plt Count MPV Neut % (Auto) Lymph % (Auto) [place] % (Auto) Eos % (Auto) Baso % (Auto) Absolute Neuts (auto) Absolute Lymphs (auto) Absolute Monos (auto) Absolute Eos (auto) Absolute Basos (auto) Absolute Nucleated RBC Nucleated RBC % Sodium Potassium Chloride Carbon Dioxide Anion Gap BUN Creatinine Est GFR ( Amer) Est GFR (Non-Af Amer) BUN/Creatinine Ratio Glucose POC Glucose (mg/dL) 224 H 332 H Hemoglobin A1c 8.2 H Calcium Magnesium Total Bilirubin AST ALT Alkaline Phosphatase Total Protein Albumin Globulin Albumin/Globulin Ratio Ur Amphetamines Screen Microbiology and Other Data: . Assess/Plan/Problems-Billing Assessment: 74 yr old female with pmh of cbp, chf, depression, htn, dm2, hypothyroid, hld; who presented to ED due to somnolence - Patient Problems (1) Somnolence Comment: - Resolving - Initially thought could be secondary to taking too many medications accidentally, but patient is sure she did not as she is very carefule. - Given recall of events leading up to admission and previous hx of same; Neurology consult requested and I appreciate their assistance. - Could also be secondary to dehydration and too much physical activity. - Awaiting MRI (2) Chronic back pain Comment: - As somnolence has improved will resume home lyrica (3) Cirrhosis Comment: - Stable (4) CHF (congestive heart failure) Comment: - No evidence of exacerbation. - Cont home lasix - Cont daily weights and I&Os (5) Diabetes Comment: - Cont decreased dose of glargine - Cont FS AC and HS with SS - A1c 8.2 - Will need close follow up with PCP for improved diabetic control or referral to [facility] (6) HTN (hypertension) Comment: - Cont home meds. (7) Hypothyroidism Comment: - TSH wnl - Continue home synthroid dose of 100 mcg daily. (8) DVT prophylaxis Comment: - Lovenox (9) Full code status Status and Disposition: Obv. Discharge home when medically stable. Attending: Kaylen Zambrano
--- NOTE | 2019-05-28 17:57 | CONS ---
CC: Jenn Tan MD* CONSULTATION REPORT: DATE OF CONSULT: 05/28/19 CURRENT LOCATION: Room 449, bed 1. PRIMARY CARE PHYSICIAN: Jenn Tan MD REASON FOR CONSULT: Somnolence and altered mental status. HISTORY OF PRESENT ILLNESS: Ms. Zavala is a very nice 74-year-old female with a history of chronic pain, on Lyrica; CHF; depression; diabetes; hypertension; hyperlipidemia; hypothyroidism; fatty liver and cirrhosis with history of diverticulitis, who presented to the hospital yesterday after an episode where she was confused. Apparently, the patient notes 1 day prior to admission, she was out working in her son's garden and she worked quite a long time, was not drinking enough water; that night, she states that she felt very tired. At times, she would go down on her knees and she felt what she called "the dropsies." She has had this in the past. She went to bed and the next morning , she was found to be arousable, but she was only answering a question or two at a time and then would drift back to sleep. It was noted in the history and physical that the patient was not always consistent and had a long pauses between the responses. The patient does not remember much of this. In fact, the patient states that she remembers waking up and feeling very tired and then she remembers hearing and understanding what was going on. She remembers her talking to her, she just could not respond, slightly different than what her described. She had lab work done, which included negative ammonia, negative UA, a CT scan that showed no acute changes and since the hospitalization, the patient feels much better. She notes a similar episode like this about 2 years ago, but no other episode. She notes no history of seizures, no family history of seizures, no head trauma, no skull fractures, no history of meningitis, no issues. She notes no prior history of stroke as well. She states that she does not remember not being able to move her arms or legs. She noted no headache at that time, no shortness of breath, no dyspnea on exertion, no palpitations that she remembers. Besides feeling very tired, she was otherwise in her normal state of health. 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 She also has not had any narcotics filled recently. She notes a history of Lyme disease in the past treated, but no other recent exposures, insect bites, fevers, chills, neck pain, headaches, otherwise been in her usual state of health. PAST MEDICAL HISTORY: As noted above. PAST SURGICAL HISTORY: Includes cardiac catheterization in 2015, cervical fusion x2, appendectomy, cholecystectomy. MEDICATIONS: At home include: 1. Amlodipine 5 mg daily. 2. Isosorbide dinitrate 30 mg daily. 3. Furosemide 20 mg daily. 4. Levothyroxine 100 mcg p.o. daily. 5. Pregabalin 150 mg in the morning and 300 mg at night. 6. Baclofen 10 mg p.o. t.i.d. 7. Insulin sliding scale and NovoLog. 8. Venlafaxine 50 mg p.o. daily. 9. Ferrous sulfate 325 mg p.o. b.i.d. 10. Vitamin B12. 11. Atorvastatin 10 mg p.o. daily. ALLERGIES: To ROSIGLITAZONE and DULOXETINE. SOCIAL HISTORY: She is a former heavy smoker, 50 pack years, but none recently. Denies any alcohol use. Denies any drug use. 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 She is to her , Paco Zavala, who is her surrogate decision maker. FAMILY HISTORY: No history of strokes or seizures. She is aware of that her sister had a coronary artery disease and high blood pressure, brother had a heart attack and mother had congestive heart failure and [place]. There is also diabetes in her mother and father. PHYSICAL EXAM: Vital Signs: She had a temperature of 99.4 last night, but otherwise has been afebrile. Blood pressure 158/61, 172/57, 135/62; pulse of 68 ; respiratory rate in the 16 to 20; O2 sats 91% to 94%. In general, she is a well- nourished, well-developed obese female, in no acute distress. She is sitting at the hospital bed. I did watch her ambulate back from the bathroom to her bed. She is pleasant, well dressed, well groomed. HEENT: She is normocephalic, atraumatic. Sclerae anicteric. Mucous membranes are moist. Oropharynx is clear. Nares are patent. Neck is supple. No thyromegaly. No carotid bruits. No meningismus. Chest: Clear to auscultation bilaterally. Cardiovascular: Regular rate and rhythm without murmurs. Abdomen: Nontender, nondistended. Extremities: No clubbing, cyanosis, or edema. Her skin is warm and dry without lesions. On neurologic exam, she is awake, alert, she is oriented x3 currently. Her speech is fluent. There is no dysarthria. Repetition is intact. Recall of recent and remote events is fairly well intact. Cranial Nerves: Pupils are equal, round, and reactive to light and accommodation. Extraocular muscles are intact without nystagmus or ptosis. Visual mercado are full to confrontation. Face sensation is intact. Face is symmetric. She has a very subtle left lower facial droop, which she states has been there for several years. Hearing is intact bilaterally. Oropharynx: Palate rises symmetrically. Tongue is midline. Motor Exam: She spontaneously moves all extremities antigravity, 5/5 throughout with good tone and bulk. No drift. DTRs are 1+ and symmetric at the biceps, brachioradialis, triceps, trace at the patella, absent at the ankles. Equivocal Babinski's. Sensation is intact to light touch and pinprick throughout. No focal deficits. She does have a resting head tremor. No resting tremor in the hands. No cogwheeling or increased tone. No tremor in the legs. She has a mild finger-to- nose tremor bilaterally. Gait is slightly wide based and slow, but steady. She is able to ambulate without difficulty or rise from her bed without difficulty. DIAGNOSTIC STUDIES/LAB DATA: CBC with diff, which is essentially normal. Platelet count is low at 82. Complete metabolic profile with a glucose of 171, 157, to 224. Hemoglobin A1c of 8.2. Magnesium 2.0. Total bili of 1.0. Her TSH was 2.47. Urine is negative for infection. U-tox was negative. Serum alcohol less than 10. ASSESSMENT AND PLAN: Ms. Zavala is a 74-year-old female with multiple medical problems including chronic back pain, on Lyrica and baclofen; congestive heart failure; depression; hypertension; diabetes; hyperlipidemia; hypothyroid; fatty liver disease and cirrhosis; history of diverticulitis. She presented to the hospital with episode of some sleepiness and tiredness, which she attributes to working too hard in the garden. The next day, she woke up, her states that she was talking in 1 word sentences and seemed like she was not able to answer, although she recalls remembering all of this and being aware she just could not answer questions. This lasted for hours. She said that it started to resolve midday. Currently, she feels back to her baseline. Because she has multiple risk factors, I do think an MRI of the brain is appropriate to look for any evidence of new stroke given the speech abnormalities. The fact that it resolved so quickly, it makes me think that it was likely not a stroke, but we will get an MRI and if it shows evidence of a new stroke, we will followthrough with additional workup. I would not start her on aspirin at this point based on her history. She also noted some somnolence, she is obese. I would recommend getting a sleep study at some point as an outpatient to evaluate for sleep apnea, which could be playing a role. In addition, she is on multiple medications that could be effecting her including Lyrica and baclofen. She states that she did not take too much of these, but it is possible in the setting of some dehydration that the medications may have had a greater effect. I would minimize sedating medications as much as possible. In addition, she was working outside, she got very tired and somnolent during that day, it is possible that she could have just had some residual fatigue the next day. In any event, she is back to baseline. My suspicion for seizures given no risk factors and the semiology is extremely low, I do not think an EEG would be high yield at this point. The plan is to get the MRI. If it is negative, I think she can go home with followup in my clinic. If she has any further episodes, she should return to the ER immediately. I will remain available for any new issues during her hospitalization. Thank you for the opportunity to participate in her care. [id number]/[facility] #: [id number] ALEXIS
[2019-05-29] MEDS: Levothyroxine TAB* 100 MCG TAB PO SCH (05:45)
[2019-05-29 06:13] LABS: ABS Eosinophils 0.2 10^3/ul (0-0.6); ABS Lymphocytes 1.5 10^3/ul (1.0-4.8); ABS Monocytes 0.5 10^3/ul (0-0.8); ABS Neutrophils 4.1 10^3/ul (1.5-7.7); Eosinophil % 3.8 %; Hematocrit 40 % (35-47); Hemoglobin 13.7 g/dL (12.0-16.0); Lymphocyte % 24.1 %; Mean Corpuscular HGB Conc 34 g/dL (31-36); Mean Corpuscular Hemoglobin 30 pg (27-31); Mean Corpuscular Volume 88 fL (80-97); Mean Platelet Volume 7.5 fL (7.4-10.4); Platelet Count 109 10^3/uL (150-450); Red Blood Count 4.59 10^6 /uL (3.70-4.87); Red Cell Distribution Width 14 % (10-15); White Blood Count 6.4 10^3/uL (3.5-10.8)
[2019-05-29 06:26] LABS: BUN/Creatinine Ratio 14.3 (8-20); Calcium 10.2 mg/dL (8.6-10.3); EGFR African American 73.5 (>60); EGFR Non-African American 60.8 (>60); Magnesium 1.9 mg/dL (1.9-2.7); Potassium 3.5 mmol/L (3.5-5.0)
[2019-05-29] MEDS: Insulin LISPRO* 1 UNITS UNIT SUBCUT SCH (09:48)
[2019-05-29] MEDS: Insulin GLARGINE(*) 1 UNITS UNIT SUBCUT SCH (09:49)
[2019-05-29] MEDS: amLODIPine TAB* 5 MG PO SCH (09:51)
[2019-05-29] MEDS: Cyanocobalamin TAB* 500 MCG PO SCH (09:52)
[2019-05-29] MEDS: Furosemide TAB* 20 MG PO SCH (09:52)
[2019-05-29] MEDS: Ferrous Sulfate TAB* 325 MG PO SCH (09:53)
[2019-05-29] MEDS: Isosorbide Mononitrate ER TAB* 30 MG PO SCH (09:53)
[2019-05-29] MEDS: Atorvastatin* 10 MG TAB PO SCH (09:53)
[2019-05-29] MEDS: CMCS: Venlafaxine TAB (NF) 25 MG TAB PO SCH (09:57)
[2019-05-29 10:11] VITALS: BP 159/52
--- NOTE | 2019-05-29 12:56 | DS ---
CC: Dr. Jnen Tan* DISCHARGE SUMMARY: DATE OF ADMISSION: 05/27/19 DATE OF DISCHARGE: 05/29/19 PRIMARY CARE PROVIDER: Dr. Jenn Tan. ATTENDING PHYSICIAN: Dr. Zambrano* (dictated by Jordi Tobar NP). PRIMARY DIAGNOSES: 1. Altered mental status/somnolence. 2. Chronic back pain. 3. Congestive heart failure. 4. Diabetes. 5. Hypothyroid. 6. Cirrhosis. CONSULTATIONS WHILE IN THE HOSPITAL: Dr. Law, Neurology. STUDIES WHILE IN THE HOSPITAL: 1. Brain CT: Impression: No acute intracranial pathology. 2. EKG: Impression: Sinus rhythm. 3. Chest x-ray: Impression: Low lung volumes. No active cardiopulmonary disease. 4. Brain MRI: Impression: No acute intracranial abnormality. Chronic microvascular ischemic change. DISCHARGE HOME MEDICATIONS: Continued Home Medications: 1. Lasix 20 mg p.o. daily. 2. Isosorbide mononitrate 30 mg p.o. daily. 3. Amlodipine 5 mg p.o. daily. 4. Levothyroxine 100 mcg p.o. daily. 5. Lyrica 150 p.o. q.a.m. 6. Lyrica 300 mg p.o. q.p.m. 7. Baclofen 10 mg p.o. t.i.d. 8. Insulin glargine 35 units subcu q.12 hours. 9. Insulin NovoLog sliding scale. 10. Venlafaxine 50 mg p.o. daily. 11. Ferrous sulfate 325 mg p.o. b.i.d. 12. Vitamin B12 2000 mcg p.o. daily. 13. Atorvastatin 10 mg p.o. daily. [place] Medication: No new home medications. Discontinued home medications: No home medications discontinued. HISTORY OF PRESENT ILLNESS/HOSPITAL COURSE: Ms. Zavala is a 74-year-old female with past medical history significant for chronic back pain, CHF, cirrhosis related to nonalcoholic fatty liver disease, diabetes; who presented to the emergency room on 05/27/19 due to somnolence x4 hours. Please see history and physical dictated by MIREYA Fontenot for complete summary of events leading up to hospitalization, but in short, the patient was brought in by EMS due to 's concern that he could not arouse the patient in the morning completely. He reports that the patient was able to arouse slightly, answer approximately 1 question at a time and then fall back to sleep. In addition, the reported that she has been complaining of increased right shoulder pain, which is worse with activity. Due to the concern for altered mental status, the hospitalists were asked to evaluate the patient for admission. While in the emergency department, the patient had a CBC which was unremarkable , CMP which was also unremarkable with the exception of mildly low magnesium at 1.8. Urine which was positive for protein and glucose and toxicology that was negative. The patient received fluid resuscitation while in the emergency department. The patient's vital signs remained stable during her emergency department visit , but given her somnolence, she was admitted to telemetry for further evaluation. While on telemetry, the patient has been in sinus rhythm with no arrhythmias. The patient's vital signs have remained stable. The patient has had neuro checks, which were unremarkable. The patient reports she remembers her trying to wake her but she has been unable to respond and reports the day before presentation she was gardening and not able to get up off of all fours as she normally would. Finally, the patient also reports this has happened before, she calls it "the dropsies," about 2 years ago. Given these bits of information, Dr. Law from Neurology was consulted to rule out any more serious neurological cause. Dr. Vivek Law evaluated the patient and a brain MRI was ordered to look for any evidence of new stroke given the speech abnormalities. Brain MRI was remarkable. Dr. Law suspects that the fact that she resolved so quickly supports that this is not any stroke. He suspects that the patient had a component of dehydration which could have also let to her medications having a greater effect. He recommended that the patent minimize sedating medications as much as possible. Finally, he also suggested that the patient get an outpatient sleep study to evaluate for sleep apnea. The patient is currently at her baseline. The patient is stable for discharge home. REVIEW OF SYSTEMS: The patient denies lethargy, weakness, dizziness, headache, visual disturbances, chest pain, shortness of breath, palpitations. A 14-point review of systems was completed, all were negative. PHYSICAL EXAMINATION: Vital Signs: BP 159/52, O2 saturation 95% on room air, respirations 16, temp 98 , HR 65. General: Ms. Zavala is sitting on the edge of her bed. She appears to be in no acute distress. Appears stated age. HEENT: EOMs intact. PERRLA. Oral mucosa is moist without lesion. Posterior oropharynx is clear. Neck: Supple. No lymphadenopathy. Cardiac: S1, S2 present. Regular rate and rhythm. No murmurs, rubs, or gallops. Respiratory: Lungs are clear. Good aeration. No accessory muscle use. No rhonchi, wheezes, or rales. Abdomen: Soft, nontender. Bowel sounds are normoactive. Extremities: No edema. No clubbing or cyanosis. Pedal pulses are 2+ bilaterally. Musculoskeletal: No pain or deformities. Skin: Grossly intact. Neuro: Cranial nerves II through XII are grossly intact. Coordination intact. Sensation intact. No drift. Strength is 5/5 in the upper and lower extremities. LABORATORY DATA: WBC 6.4, hemoglobin 13.7, hematocrit 40, platelets 109. Sodium 136, potassium 3.5, chloride 105, carbon dioxide 24, BUN 13, creatinine 0.91. Glucose 200, calcium 10.2, magnesium 1.9, hemoglobin A1c is 8.2. DISCHARGE PLAN/FOLLOWUP: 1. Altered mental status/somnolence: As mentioned above, this has resolved and the patient is currently at her baseline. MRI was obtained and was unremarkable. We suspect this is secondary to fatigue, dehydration, possibly increase of medication effects given dehydration as the patient was working outside in the sun gardening. Neurology was consulted and I appreciate their assistance. They recommended the patient reduce sedating medications as much as possible. The patient should attempt to remain hydrated as much as possible. They also recommended that the patient have an outpatient sleep study as this could be contributing to somnolence. 2. Chronic back pain: The patient should resume her home medications of Lyrica and baclofen, but once again, we would recommend that she decrease her sedating home medications with the assistance of her primary care provider if possible. 3. Nonalcoholic fatty liver/cirrhosis: This is stable. The patient should follow up with her primary care. 4. Congestive heart failure: The patient currently has no evidence of exacerbation. She appears euvolemic. She should continue her diuretics, Imdur , amlodipine, atorvastatin. 5. Hypertension: The patient should continue her home blood pressure medications the same. 6. Diabetes type 2: The patient should continue her home medication, her home insulin regimen of glargine and NovoLog sliding scale. As mentioned above, I did obtain a hemoglobin A1c of 8.2. I would recommend the patient follow up with her primary care to discuss tighter control of her diabetes through lifestyle changes, medication changes or possibly a referral to boatswain mate. 7. Hypothyroidism: The patient should continue her levothyroxine the same. The patient's TSH was 2.47 while admitted. 8. Followup: The patient should follow up with her primary care in 1 to 3 days. The patient should follow up with Dr. Law and/or Bautista Elise NP at [facility] in 6 to 8 weeks. Once again, we would recommend a sleep study and decreasing sedating medications as much as possible. I would also recommend improved control of the patient's diabetes. 9. Education: The patient was educated on signs and symptoms of new or worsening condition and when to return to the emergency department. The patient stated understanding. This is a summarized report of a complex medical history and hospital stay. For further details, please see the entire medical record. TIME SPENT: Approximately 35 minutes was spent on this discharge, greater than half the time was spent [id number] with the patient discussing discharge plan and instructions. This plan was discussed with my attending Dr. Zambrano, who is in agreement with my plan of care. Reviewed by JORDI TOBAR NP 06/05/19 @ 0924 [id number]/[facility] #: [id number] MTDStan
== END 2019-05-29 11:00 | disposition home or self-care (01) ==
LOC: ED 09:44 → MEDTELE 12:07
PROVIDERS: ADMIT Internal Medicine; ATTEND Hospitalist
DX: R41.82 Altered mental status, unspecified (principal); R40.0 Somnolence; M54.9 Dorsalgia, unspecified; G89.29 Other chronic pain; F32.9 Major depressive disorder, single episode, unspecified; E11.9 Type 2 diabetes mellitus without complications; K76.0 Fatty (change of) liver, not elsewhere classified; K74.60 Unspecified cirrhosis of liver; E03.9 Hypothyroidism, unspecified; I51.7 Cardiomegaly; Z79.899 Other long term (current) drug therapy; Z79.4 Long term (current) use of insulin; Z88.8 Allergy status to other drugs, medicaments and biological substances; Z87.891 Personal history of nicotine dependence
CPT/HCPCS: 36415; 70450; 70551; 71045; 80048; 80053; 80307; 80320; 81003; 81015; 82140; 82550; 83036; 83605; 83735; 84443; 84484; 85025; 93005; 96361; 96374; 99285; A9270-GY; G0378; G0480; J1650; J3475

== ENCOUNTER 2022-03-22 17:56 | Inpatient (IN) ==
[2022-03-22 18:30] LABS: ABS Eosinophils 0.2 10^3/ul (0-0.6); ABS Lymphocytes 1.4 10^3/ul (1.0-4.8); ABS Monocytes 0.5 10^3/ul (0-0.8); ABS Neutrophils 3.6 10^3/ul (1.5-7.7); Eosinophil % 3.8 %; Hematocrit 39 % (35-47); Hemoglobin 13.2 g/dL (12.0-16.0); Lymphocyte % 23.6 %; Mean Corpuscular HGB Conc 34 g/dL (31-36); Mean Corpuscular Hemoglobin 30 pg (27-31); Mean Corpuscular Volume 88 fL (80-97); Nucleated Red Blood Cells % 0.1; Platelet Count 92 10^3/uL (150-450); Red Blood Count 4.41 10^6 /uL (3.70-4.87); Red Cell Distribution Width 14 % (10-15); White Blood Count 5.8 10^3/uL (3.5-10.8)
[2022-03-22 18:45] LABS: High Sens Troponin Baseline 17 pg/mL (<15)
[2022-03-22 18:52] LABS: ALT 25 U/L (7-52); AST 28 U/L (13-39); Albumin 3.4 g/dL (3.2-5.2); Albumin/Globulin Ratio 0.9 (1-3); Alkaline Phosphatase 80 U/L (35-149); Anion Gap 5 mmol/L (2-11); Blood Urea Nitrogen 12 mg/dL (6-24); CO2 Carbon Dioxide 29 mmol/L (22-32); Chloride 104 mmol/L (101-111); Globulin 3.7 g/dL (2-4); Glucose 164 mg/dL (70-100); Potassium 3.1 mmol/L (3.5-5.0); Sodium 138 mmol/L (135-145); Total Protein 7.1 g/dL (6.4-8.9); eGFR CKD-EPI 58.1 (>60)
[2022-03-22 19:47] LABS: High Sensitivity Troponin 1 Hr 17 pg/mL (<15)
[2022-03-22] MEDS ORDERED: Potassium Chloride LIQUID 20 MEQ/15 ML LIQUID PO ONE (22:35)
[2022-03-22 22:52] LABS: Magnesium 1.7 mg/dL (1.9-2.7)
[2022-03-22 23:07] LABS: TSH Ultra Thyroid Stim Horm 0.21 mcIU/mL (0.34-5.60)
[2022-03-22 23:18] LABS: Folate 15.51 ng/mL (5.90-24.80)
[2022-03-22 23:19] LABS: Vitamin B12 > 1450 pg/mL (180-914)
[2022-03-22 23:22] LABS: Vitamin D Total 25(OH) 59.7 ng/mL (20-50)
[2022-03-22] MEDS ORDERED: Dextrose 50% Syringe 50 ml 25 GM/50 ML SYRINGE IV PUSH PRN (23:30)
[2022-03-22] MEDS: Venlafaxine XR 75 mg PO SCH (23:52)
[2022-03-23] MEDS ORDERED: Iohexol 350 (CONTRAST) 500 ML MDV IV ONE (00:08)
[2022-03-23 00:39] LABS: Free T4 1.08 ng/dL (0.61-1.12)
[2022-03-23] MEDS ORDERED: hydrALAZINE 20 mg/ml 1 ML Vial IV IV SLOW PU PRN (01:54)
[2022-03-23 02:38] LABS: HDL Cholesterol 56.3 mg/dL
[2022-03-23] MEDS ORDERED: Magnesium Sulfate IV 3 GM in NS 0.9% 100 ml BAG 100 ML IVPB ONE (03:55)
[2022-03-23] MEDS ORDERED: Magnesium Sulfate 2 GM IV (Premix) IVPB ONE (04:00)
[2022-03-23 05:28] LABS: Total T3 69 ng/dL (87-178)
[2022-03-23] MEDS ORDERED: Magnesium Sulfate 1 GM IV 1 GM/100 ML BAG IV ONE (05:30)
[2022-03-23 05:58] LABS: ABS Eosinophils 0.3 10^3/ul (0-0.6); ABS Lymphocytes 2.2 10^3/ul (1.0-4.8); ABS Monocytes 0.7 10^3/ul (0-0.8); ABS Neutrophils 5.3 10^3/ul (1.5-7.7); Eosinophil % 3.9 %; Hematocrit 39 % (35-47); Hemoglobin 13.5 g/dL (12.0-16.0); Lymphocyte % 25.8 %; Mean Corpuscular HGB Conc 35 g/dL (31-36); Mean Corpuscular Hemoglobin 30 pg (27-31); Mean Corpuscular Volume 87 fL (80-97); Mean Platelet Volume 6.8 fL (7.4-10.4); Nucleated Red Blood Cells % 0.2; Platelet Count 109 10^3/uL (150-450); Red Blood Count 4.48 10^6 /uL (3.70-4.87); Red Cell Distribution Width 14 % (10-15); White Blood Count 8.6 10^3/uL (3.5-10.8)
[2022-03-23 06:20] LABS: Urine Benzodiazepine Screen None Detected (None Detect); Urine Buprenorphine Screen None Detected (None Detect); Urine Cannabinoids Screen None Detected (None Detect); Urine Fentanyl Screen None Detected (None Detect); Urine Hydrocodone Screen None Detected (None Detect); Urine Opiates Screen None Detected (None Detect)
[2022-03-23 06:51] LABS: Albumin 3.4 g/dL (3.2-5.2); Albumin/Globulin Ratio 0.9 (1-3); Calcium 9.7 mg/dL (8.6-10.3); Globulin 3.8 g/dL (2-4); Potassium 3.5 mmol/L (3.5-5.0); Total Bilirubin 1.4 mg/dL (0.2-1.0); Total Protein 7.2 g/dL (6.4-8.9); eGFR CKD-EPI 59.5 (>60)
[2022-03-23] MEDS: Insulin GLARGINE 100 un/ml 10 ml VIAL SUBCUT SCH (09:45)
[2022-03-23] MEDS: Venlafaxine XR 75 mg PO SCH (09:45)
[2022-03-23] MEDS: Enoxaparin 40 MG/0.4 ML SYR SUBCUT SCH (20:28)
[2022-03-24 06:29] LABS: Calcium 9.4 mg/dL (8.6-10.3); Potassium 3.5 mmol/L (3.5-5.0); eGFR CKD-EPI 52.4 (>60)
[2022-03-24] MEDS: Insulin GLARGINE 100 un/ml 10 ml VIAL SUBCUT SCH (09:11)
[2022-03-24] MEDS: Venlafaxine XR 75 mg PO SCH (09:13)
[2022-03-24 14:01] LABS: High Sensitivity Troponin 1 Hr 17 pg/mL (<15)
[2022-03-24] MEDS ORDERED: Al Hydrox/Mg Hydrox/Simet LIQ 30 ML UDC PO ONE (14:40)
[2022-03-24] MEDS: Enoxaparin 40 MG/0.4 ML SYR SUBCUT SCH (21:18)
[2022-03-25 05:49] LABS: ABS Eosinophils 0.3 10^3/ul (0-0.6); ABS Lymphocytes 1.8 10^3/ul (1.0-4.8); ABS Monocytes 0.5 10^3/ul (0-0.8); ABS Neutrophils 3.8 10^3/ul (1.5-7.7); Eosinophil % 4.8 %; Hematocrit 37 % (35-47); Hemoglobin 12.7 g/dL (12.0-16.0); Lymphocyte % 28.1 %; Mean Corpuscular HGB Conc 34 g/dL (31-36); Mean Corpuscular Hemoglobin 30 pg (27-31); Mean Corpuscular Volume 89 fL (80-97); Red Blood Count 4.19 10^6 /uL (3.70-4.87); Red Cell Distribution Width 15 % (10-15); White Blood Count 6.4 10^3/uL (3.5-10.8)
[2022-03-25 05:56] LABS: Calcium 9.8 mg/dL (8.6-10.3); Potassium 3.9 mmol/L (3.5-5.0); eGFR CKD-EPI 44.5 (>60)
[2022-03-25 07:23] LABS: Platelet Count 84 10^3/uL (150-450)
[2022-03-25] MEDS: Insulin GLARGINE 100 un/ml 10 ml VIAL SUBCUT SCH (08:13)
[2022-03-25] MEDS: Venlafaxine XR 75 mg PO SCH (08:15)
[2022-03-25 16:22] VITALS: BP 168/56
[2022-03-25] MEDS: Enoxaparin 40 MG/0.4 ML SYR SUBCUT SCH (20:29)
== END 2022-03-25 21:09 | disposition home or self-care (01) | DRG 65 ==
LOC: EDHOLD 17:56 → ED 17:56 → SUATTDRO 23:27 → EDHOLD 03-23 14:34 → MEDTELE 03-23 15:53
PROVIDERS: ADMIT Internal Medicine; ATTEND Pediatrics

== ENCOUNTER 2022-03-29 13:28 | Inpatient (IN) ==
[2022-03-29] MEDS ORDERED: Dextrose 50% Syringe 50 ml 25 GM/50 ML SYRINGE IV PUSH PRN (13:50)
[2022-03-29] MEDS ORDERED: Magnesium Hydroxide LIQ 30 ML UDC PO PRN (13:51)
[2022-03-29] MEDS ORDERED: Senna TAB 8.6 mg TAB PO PRN (13:54)
[2022-03-29] MEDS: Enoxaparin 40 MG/0.4 ML SYR SUBCUT SCH (22:40)
[2022-03-30] MEDS: oxyCODONE/Acetamin 5/325 mg TAB PO PRN (07:39)
[2022-03-30] MEDS: Insulin GLARGINE 100 un/ml 10 ml VIAL SUBCUT SCH (09:08)
[2022-03-30] MEDS: Venlafaxine XR 75 mg PO SCH (09:09)
[2022-03-30] MEDS: Enoxaparin 40 MG/0.4 ML SYR SUBCUT SCH (21:05)
[2022-03-31] MEDS: oxyCODONE/Acetamin 5/325 mg TAB PO PRN (06:25)
[2022-03-31] MEDS: Venlafaxine XR 75 mg PO SCH (09:08)
[2022-03-31] MEDS: Insulin GLARGINE 100 un/ml 10 ml VIAL SUBCUT SCH (09:08)
[2022-03-31] MEDS: Enoxaparin 40 MG/0.4 ML SYR SUBCUT SCH (20:06)
[2022-04-01] MEDS: oxyCODONE/Acetamin 5/325 mg TAB PO PRN (08:14)
[2022-04-01] MEDS: Venlafaxine XR 75 mg PO SCH (08:15)
[2022-04-01] MEDS: Insulin GLARGINE 100 un/ml 10 ml VIAL SUBCUT SCH (09:17)
[2022-04-01 11:35] LABS: Rapid COVID-19 Molecular Undetected (Undetected)
[2022-04-01 12:18] VITALS: BP 152/61
== END 2022-04-01 13:40 | DRG 561 ==
LOC: SSU 13:28 → SUATTDRO 13:28
PROVIDERS: ADMIT Internal Medicine; ATTEND Family Medicine

== ENCOUNTER 2022-04-09 14:29 | Inpatient (IN) ==
[2022-04-09 15:18] LABS: ABS Basophils 0.1 10^3/ul (0-0.2); ABS Eosinophils 0.3 10^3/ul (0-0.6); ABS Lymphocytes 3.2 10^3/ul (1.0-4.8); ABS Monocytes 0.8 10^3/ul (0-0.8); ABS Neutrophils 9.1 10^3/ul (1.5-7.7); Hematocrit 28 % (35-47); Hemoglobin 9.7 g/dL (12.0-16.0); Mean Corpuscular HGB Conc 34 g/dL (31-36); Mean Corpuscular Hemoglobin 31 pg (27-31); Mean Corpuscular Volume 91 fL (80-97); Mean Platelet Volume 7.2 fL (7.4-10.4); Platelet Count 211 10^3/uL (150-450); Red Blood Count 3.12 10^6 /uL (3.70-4.87); Red Cell Distribution Width 16 % (10-15); White Blood Count 13.5 10^3/uL (3.5-10.8)
[2022-04-09 16:03] LABS: Albumin 3.3 g/dL (3.2-5.2); Calcium 10.3 mg/dL (8.6-10.3); Globulin 3.3 g/dL (2-4); Potassium 4.6 mmol/L (3.5-5.0); Total Bilirubin 1.1 mg/dL (0.2-1.0); Total Protein 6.6 g/dL (6.4-8.9); eGFR CKD-EPI 47.7 (>60)
[2022-04-09] MEDS ORDERED: NS 0.9% 1000 ml BAG 1,000 ML IV SCH (17:30)
[2022-04-09] MEDS ORDERED: Lactated Ringers 1000 ml BAG 1,000 ML IV ONE (17:35)
[2022-04-09] MEDS ORDERED: Phytonadione IV (Adult) 5 MG in NS 0.9% 50 ML 50 ML IV ONE (17:59)
[2022-04-09] MEDS: Pantoprazole 80 mg in NS BAG 80 MG/250 ML BAG IV SCH (18:36)
[2022-04-09 18:37] LABS: ABS Lymphocytes 1.4 10^3/ul (1.0-4.8); ABS Monocytes 0.4 10^3/ul (0-0.8); ABS Neutrophils 11.6 10^3/ul (1.5-7.7); Eosinophil % 0.2 %; Hematocrit 30 % (35-47); Hemoglobin 10.1 g/dL (12.0-16.0); Lymphocyte % 10.1 %; Mean Corpuscular HGB Conc 33 g/dL (31-36); Mean Corpuscular Hemoglobin 30 pg (27-31); Mean Corpuscular Volume 91 fL (80-97); Mean Platelet Volume 7.8 fL (7.4-10.4); Platelet Count 196 10^3/uL (150-450); Red Blood Count 3.31 10^6 /uL (3.70-4.87); Red Cell Distribution Width 16 % (10-15); White Blood Count 13.4 10^3/uL (3.5-10.8)
[2022-04-09] MEDS ORDERED: Dextrose 50% Syringe 50 ml 25 GM/50 ML SYRINGE IV PUSH PRN (19:31)
[2022-04-09] MEDS ORDERED: cefTRIAXone 1 gm/50 mL D5W 1 GM/50 ML BAG IV ONE (20:45)
[2022-04-09 21:38] LABS: INR 1.29 (0.86-1.15)
[2022-04-09] MEDS: Lactulose 30 ml UDC PO SCH ×2 (23:40→23:43)
[2022-04-10] MEDS: D5LR 1000 ml BAG 1,000 ML IV SCH ×3 (01:10→17:54)
[2022-04-10 01:32] LABS: Hematocrit 25 % (35-47); Hemoglobin 8.2 g/dL (12.0-16.0)
[2022-04-10] MEDS ORDERED: Ondansetron 4 mg VIAL 2 MG/ML 2 ml VIAL IV PRN (01:36)
[2022-04-10] MEDS ORDERED: Octreotide Acetate 50 MCG in NS 0.9% 50 ML 50 ML IV ONE (02:15)
[2022-04-10 02:38] LABS: TSH Ultra Thyroid Stim Horm 2.54 mcIU/mL (0.34-5.60)
[2022-04-10] MEDS: Octreotide Acetate 500 MCG in NS 0.9% 100 ml BAG 100 ML IV SCH ×2 (03:16→19:38)
[2022-04-10] MEDS: Lactulose 300 ML for PR 200 GM/300 ML BTL PR SCH ×3 (03:24→19:04)
[2022-04-10 06:30] LABS: ABS Basophils 0.1 10^3/ul (0-0.2); ABS Eosinophils 0.2 10^3/ul (0-0.6); ABS Lymphocytes 2.3 10^3/ul (1.0-4.8); ABS Monocytes 0.7 10^3/ul (0-0.8); ABS Neutrophils 7.4 10^3/ul (1.5-7.7); Eosinophil % 1.7 %; Hematocrit 23 % (35-47); Hemoglobin 7.8 g/dL (12.0-16.0); Lymphocyte % 21.9 %; Mean Corpuscular HGB Conc 35 g/dL (31-36); Mean Corpuscular Hemoglobin 32 pg (27-31); Mean Corpuscular Volume 92 fL (80-97); Mean Platelet Volume 7.4 fL (7.4-10.4); Platelet Count 132 10^3/uL (150-450); Red Blood Count 2.44 10^6 /uL (3.70-4.87); Red Cell Distribution Width 16 % (10-15); White Blood Count 10.6 10^3/uL (3.5-10.8)
[2022-04-10 06:39] LABS: INR 1.32 (0.86-1.15)
[2022-04-10 07:21] LABS: C Reactive Protein 6.12 mg/L (<8.01); Calcium 9.8 mg/dL (8.6-10.3); Magnesium 2.3 mg/dL (1.9-2.7); Potassium 4.1 mmol/L (3.5-5.0); eGFR CKD-EPI 43.7 (>60)
[2022-04-10] MEDS: Pantoprazole 80 mg in NS BAG 80 MG/250 ML BAG IV SCH ×2 (08:17→19:39)
[2022-04-10] MEDS ORDERED: Lactated Ringers 500 ml BAG 500 ML IV ONE (09:24)
[2022-04-10] MEDS: Lactulose 30 ml UDC PO SCH ×3 (11:53→21:21)
[2022-04-10] MEDS ORDERED: fentaNYL 100 mcg/2 ml 50 MCG/ML VIAL ONE (15:28)
[2022-04-10] MEDS ORDERED: Midazolam 10 mg/10 ml VIAL 1 mg/ml 10 ml VIAL (10 mg) ONE (15:28)
[2022-04-10] MEDS ORDERED: cefTRIAXone 1 gm/50 mL D5W 1 GM/50 ML BAG IV SCH (21:00)
[2022-04-11] MEDS: D5LR 1000 ml BAG 1,000 ML IV SCH ×2 (02:35→13:57)
[2022-04-11] MEDS ORDERED: Octreotide Acetate 500 MCG in NS 0.9% 100 ml BAG 100 ML IV SCH (05:30)
[2022-04-11] MEDS: Pantoprazole 80 mg in NS BAG 80 MG/250 ML BAG IV SCH ×2 (05:32→16:48)
[2022-04-11 05:37] LABS: Urine Appearance Clear; Urine Bilirubin Negative (Negative); Urine Blood 1+ (Negative); Urine Color Yellow; Urine Glucose Negative (Negative); Urine Ketones Negative (Negative); Urine Nitrite Negative (Negative); Urine Protein Negative (Negative); Urine Specific Gravity 1.016 (1.002-1.030); Urine Urobilinogen Negative (Negative)
[2022-04-11 06:15] LABS: Urine Bacteria Absent (Absent); Urine Red Blood Cell Trace(0-2/hpf) (Absent); Urine Squamous Epithelial Cell Present (Absent); Urine White Blood Cell Absent (Absent)
[2022-04-11 06:25] LABS: ABS Eosinophils 0.4 10^3/ul (0-0.6); ABS Lymphocytes 1.6 10^3/ul (1.0-4.8); ABS Monocytes 0.4 10^3/ul (0-0.8); ABS Neutrophils 3.3 10^3/ul (1.5-7.7); Eosinophil % 6.5 %; Hematocrit 20 % (35-47); Lymphocyte % 28.4 %; Mean Corpuscular HGB Conc 35 g/dL (31-36); Mean Corpuscular Hemoglobin 33 pg (27-31); Mean Corpuscular Volume 94 fL (80-97); Mean Platelet Volume 7.5 fL (7.4-10.4); Platelet Count 95 10^3/uL (150-450); Red Blood Count 2.14 10^6 /uL (3.70-4.87); Red Cell Distribution Width 17 % (10-15); White Blood Count 5.7 10^3/uL (3.5-10.8)
[2022-04-11 06:39] LABS: Magnesium 1.9 mg/dL (1.9-2.7); Potassium 3.9 mmol/L (3.5-5.0); eGFR CKD-EPI 44.5 (>60)
[2022-04-11] MEDS: Venlafaxine XR 75 mg PO SCH (08:16)
[2022-04-11] MEDS: Lactulose 30 ml UDC PO SCH ×3 (08:16→20:48)
[2022-04-11] MEDS: Insulin GLARGINE 100 un/ml 10 ml VIAL SUBCUT SCH ×2 (08:17→20:47)
[2022-04-11] MEDS ORDERED: hydrALAZINE 20 mg/ml 1 ML Vial IV IV SLOW PU PRN (16:27)
[2022-04-11] MEDS ORDERED: hydrALAZINE 20 mg/ml 1 ML Vial IV IV SLOW PU ONE (16:29)
[2022-04-11] MEDS ORDERED: PEG 3000 GI LAVAGE 1 GALLON PO ONE (17:26)
[2022-04-11 18:07] LABS: Hematocrit 26 % (35-47); Hemoglobin 8.6 g/dL (12.0-16.0)
[2022-04-12 05:58] LABS: ABS Eosinophils 0.3 10^3/ul (0-0.6); ABS Lymphocytes 1.2 10^3/ul (1.0-4.8); ABS Monocytes 0.3 10^3/ul (0-0.8); ABS Neutrophils 2.5 10^3/ul (1.5-7.7); Eosinophil % 7.3 %; Hematocrit 22 % (35-47); Hemoglobin 7.7 g/dL (12.0-16.0); Lymphocyte % 27.9 %; Mean Corpuscular HGB Conc 35 g/dL (31-36); Mean Corpuscular Hemoglobin 32 pg (27-31); Mean Corpuscular Volume 92 fL (80-97); Mean Platelet Volume 7.3 fL (7.4-10.4); Platelet Count 78 10^3/uL (150-450); Red Blood Count 2.38 10^6 /uL (3.70-4.87); Red Cell Distribution Width 16 % (10-15); White Blood Count 4.3 10^3/uL (3.5-10.8)
[2022-04-12 06:43] LABS: Calcium 8.6 mg/dL (8.6-10.3); Magnesium 1.5 mg/dL (1.9-2.7); Potassium 3.3 mmol/L (3.5-5.0); eGFR CKD-EPI 54.2 (>60)
[2022-04-12] MEDS ORDERED: Potassium Chlor 20 meq TAB.ER PO ONE ×2 (06:44→09:00)
[2022-04-12] MEDS ORDERED: Magnesium Sulfate IV 3 GM in NS 0.9% 100 ml BAG 100 ML IVPB ONE (06:48)
[2022-04-12] MEDS ORDERED: Magnesium Sulfate 4 GM IV IVPB ONE (07:00)
[2022-04-12] MEDS: Insulin GLARGINE 100 un/ml 10 ml VIAL SUBCUT SCH ×2 (08:48→20:51)
[2022-04-12] MEDS: Venlafaxine XR 75 mg PO SCH (08:49)
[2022-04-12] MEDS ORDERED: Magnesium Sulfate 2 gm BAG 2 GM/50 ML BAG IVPB ONE (10:00)
[2022-04-12] MEDS ORDERED: Magnesium Sulfate 1 GM IV 1 GM/100 ML BAG IV ONE (10:00)
[2022-04-12] MEDS ORDERED: Potassium Chlor 10 meq TAB PO ONE (11:59)
[2022-04-12 14:50] LABS: Hematocrit 22 % (35-47); Hemoglobin 7.7 g/dL (12.0-16.0)
[2022-04-12] MEDS: Lidocaine PATCH 5% PATCH TRANSDERM SCH (21:28)
[2022-04-13 08:51] LABS: ABS Eosinophils 0.3 10^3/ul (0-0.6); ABS Lymphocytes 0.9 10^3/ul (1.0-4.8); ABS Monocytes 0.3 10^3/ul (0-0.8); ABS Neutrophils 3.2 10^3/ul (1.5-7.7); Eosinophil % 6.8 %; Hematocrit 24 % (35-47); Hemoglobin 8.3 g/dL (12.0-16.0); Lymphocyte % 19.5 %; Mean Corpuscular HGB Conc 34 g/dL (31-36); Mean Corpuscular Hemoglobin 32 pg (27-31); Mean Corpuscular Volume 92 fL (80-97); Mean Platelet Volume 7.1 fL (7.4-10.4); Nucleated Red Blood Cells % 0.1; Platelet Count 94 10^3/uL (150-450); Red Blood Count 2.63 10^6 /uL (3.70-4.87); Red Cell Distribution Width 16 % (10-15); White Blood Count 4.8 10^3/uL (3.5-10.8)
[2022-04-13 09:10] LABS: Calcium 8.8 mg/dL (8.6-10.3); Potassium 4.1 mmol/L (3.5-5.0); eGFR CKD-EPI 55.4 (>60)
[2022-04-13] MEDS: Venlafaxine XR 75 mg PO SCH (10:09)
[2022-04-13] MEDS: Insulin GLARGINE 100 un/ml 10 ml VIAL SUBCUT SCH ×2 (10:10→21:55)
[2022-04-13] MEDS: Lidocaine PATCH 5% PATCH TRANSDERM SCH (10:12)
[2022-04-13 13:22] LABS: High Sensitivity Troponin 1 Hr 15 pg/mL (<15)
[2022-04-13 15:17] LABS: High Sensitivity Troponin 3 Hr 16 pg/mL (<15)
[2022-04-13] MEDS ORDERED: Polyethylene Glycol 3350 17 GM PACKET PO ONE (16:12)
[2022-04-13] MEDS: Heparin 5000 UNITS/ML 1 mL VIAL SUBCUT SCH (21:55)
[2022-04-14 08:07] LABS: ABS Eosinophils 0.2 10^3/ul (0-0.6); ABS Monocytes 0.3 10^3/ul (0-0.8); ABS Neutrophils 2.9 10^3/ul (1.5-7.7); Eosinophil % 5.6 %; Hematocrit 24 % (35-47); Hemoglobin 8.2 g/dL (12.0-16.0); Lymphocyte % 22.3 %; Mean Corpuscular HGB Conc 34 g/dL (31-36); Mean Corpuscular Hemoglobin 32 pg (27-31); Mean Corpuscular Volume 94 fL (80-97); Mean Platelet Volume 7.5 fL (7.4-10.4); Platelet Count 97 10^3/uL (150-450); Red Blood Count 2.57 10^6 /uL (3.70-4.87); Red Cell Distribution Width 17 % (10-15); White Blood Count 4.4 10^3/uL (3.5-10.8)
[2022-04-14 08:39] LABS: Calcium 9.1 mg/dL (8.6-10.3); Magnesium 1.8 mg/dL (1.9-2.7); Potassium 4.1 mmol/L (3.5-5.0)
[2022-04-14] MEDS ORDERED: Magnesium Sulfate 2 gm BAG 2 GM/50 ML BAG IVPB ONE (08:44)
[2022-04-14] MEDS: Heparin 5000 UNITS/ML 1 mL VIAL SUBCUT SCH ×2 (08:44→21:23)
[2022-04-14] MEDS: Insulin GLARGINE 100 un/ml 10 ml VIAL SUBCUT SCH ×2 (08:45→21:23)
[2022-04-14] MEDS: Lidocaine PATCH 5% PATCH TRANSDERM SCH (08:46)
[2022-04-14] MEDS: Venlafaxine XR 75 mg PO SCH (08:46)
[2022-04-15 07:09] LABS: ABS Eosinophils 0.3 10^3/ul (0-0.6); ABS Lymphocytes 0.9 10^3/ul (1.0-4.8); ABS Monocytes 0.4 10^3/ul (0-0.8); Eosinophil % 7.3 %; Hematocrit 24 % (35-47); Hemoglobin 8.3 g/dL (12.0-16.0); Lymphocyte % 19.8 %; Mean Corpuscular HGB Conc 35 g/dL (31-36); Mean Corpuscular Hemoglobin 32 pg (27-31); Mean Corpuscular Volume 93 fL (80-97); Mean Platelet Volume 7.5 fL (7.4-10.4); Platelet Count 91 10^3/uL (150-450); Red Blood Count 2.56 10^6 /uL (3.70-4.87); Red Cell Distribution Width 17 % (10-15); White Blood Count 4.7 10^3/uL (3.5-10.8)
[2022-04-15 07:16] LABS: Calcium 8.9 mg/dL (8.6-10.3); Magnesium 1.9 mg/dL (1.9-2.7); eGFR CKD-EPI 48.2 (>60)
[2022-04-15] MEDS ORDERED: Insulin GLARGINE 100 un/ml 10 ml VIAL SUBCUT SCH (09:00)
[2022-04-15] MEDS: Heparin 5000 UNITS/ML 1 mL VIAL SUBCUT SCH ×2 (09:47→22:01)
[2022-04-15] MEDS: Lidocaine PATCH 5% PATCH TRANSDERM SCH (09:50)
[2022-04-15] MEDS: Venlafaxine XR 75 mg PO SCH (09:53)
[2022-04-15] MEDS: Insulin GLARGINE 100 un/ml 10 ml VIAL SUBCUT SCH (22:03)
[2022-04-16 06:28] LABS: Hematocrit 26 % (35-47); Hemoglobin 8.9 g/dL (12.0-16.0); Mean Corpuscular HGB Conc 34 g/dL (31-36); Mean Corpuscular Hemoglobin 32 pg (27-31); Mean Corpuscular Volume 93 fL (80-97); Mean Platelet Volume 7.3 fL (7.4-10.4); Platelet Count 101 10^3/uL (150-450); Red Blood Count 2.78 10^6 /uL (3.70-4.87); Red Cell Distribution Width 17 % (10-15); White Blood Count 5.6 10^3/uL (3.5-10.8)
[2022-04-16 07:16] LABS: Calcium 9.3 mg/dL (8.6-10.3); Magnesium 1.6 mg/dL (1.9-2.7); Potassium 3.7 mmol/L (3.5-5.0); eGFR CKD-EPI 47.2 (>60)
[2022-04-16] MEDS ORDERED: Insulin GLARGINE 100 un/ml 10 ml VIAL SUBCUT SCH (09:00)
[2022-04-16] MEDS: Lidocaine PATCH 5% PATCH TRANSDERM SCH (09:11)
[2022-04-16] MEDS: Heparin 5000 UNITS/ML 1 mL VIAL SUBCUT SCH (09:12)
[2022-04-16] MEDS: Venlafaxine XR 75 mg PO SCH (09:12)
[2022-04-16 13:49] VITALS: BP 162/58
[2022-04-16 14:27] LABS: Rapid COVID-19 Molecular Undetected (Undetected)
== END 2022-04-16 16:10 | DRG 377 ==
LOC: ED 14:29 → SUATTDRO 17:28 → EDHOLD 17:28 → MEDTELE 04-10 00:23
PROVIDERS: ADMIT Internal Medicine; ATTEND Internal Medicine